=== PATIENT | male | born 1930 | race American Indian/Alaskan Native ===

== ENCOUNTER 2017-01-18 23:02 | Inpatient (IN) | payer MEDICARE ==
--- NOTE | 2017-01-18 23:30 | Emergency Department Report ---
HPI - General Time Seen by Provider: 01/18/17 23:18 - HPI HPI: This is a 86-year-old [place] male presents to the emergency department by EMS with concern for a possible stroke. The patient apparently was witnessed to have a change in status at about 2200 this evening that included a left-sided facial droop, left arm weakness, problems with speech and with his thought process. When EMS got there and during transport to [facility], the patient appears to have shown signs of improvement. Upon presentation he still has a slight left-sided facial droop but has decreased weakness, increased speech. Apparently his normal baseline status is AAO 3, verbal, ambulatory without any deficits. He has a past medical history of hypertension , coronary artery disease with triple bypass, glaucoma and diabetes. No previous CVA. He did not receive anything for his symptoms in route. I was able to get in touch with the patient's "caregiver", Kris Wagoner, who was there with the patient within he had a change in mental status and/or any neurological deficits. He says that the patient was normal when he came back from running errands at about 2200 this evening. Shortly after that he began having some slurred speech, not making any sense. He says that his eyes "did not look quite right" and that he was wondering if the patient had a seizure as he clenched his left hand and was having some shaking. He is unsure whether there was any known weakness to the extremities. He says that he has the caregiver but he has not necessarily the DURABLE POWER OF HANGAR ATTENDANT. The patient does have some family in both [place] and [place]. ED Past Medical Hx - Past Medical History Hx Hypertension: Yes Hx Heart Attack/AMI: Yes (2008) Hx Diabetes: Yes - Surgical History Additional Surgical History: bypass heart surgery - Social History Smoking Status: Never Smoker - Medications Home Medications: Home Medications Medication Instructions Recorded Confirmed Last Taken Type RX: Carvedilol [Coreg] 6.25 mg PO BID 11/03/16 11/03/16 1 Day Ago History RX: Clopidogrel [Plavix] 75 mg PO QDAY 11/03/16 11/03/16 1 Day Ago History RX: Simvastatin [Zocor TAB] 40 mg PO QHS 11/03/16 11/03/16 1 Day Ago History ED Review of Systems ROS: Stated complaint: ALTERED MENTAL STATUS Other details as noted in HPI Comment: Unobtainable due to pts medical conditions Physical Exam - Physical Exam Physical Exam: GENERAL: The patient is well-developed well-nourished. HENT: Normocephalic. Atraumatic. Patient has moist mucous membranes. EYES: Extraocular motions are intact. Pupils equal reactive to light bilaterally. There is some fatigable horizontal nystagmus. NECK: Supple. Trachea is midline. CHEST/LUNGS: Clear to auscultation. There is no respiratory distress noted. HEART/CARDIOVASCULAR: Regular. There is no tachycardia. There is no gallop rub or murmur. ABDOMEN: Abdomen is soft, nontender. Patient has normal bowel sounds. There is no abdominal distention. SKIN: Skin is warm and dry. NEURO: The patient is awake but confused. Follows some commands but often needs redirection or to be told multiple times. No obvious pronator drift. There is a left-sided facial nasolabial fold paresis. Patient has some expressive aphasia. MUSCULOSKELETAL: There is no tenderness or deformity. Radial pulse +2 over 4 bilaterally. There is no evidence of acute injury. ED Course - Reevaluation(s) Reevaluation #1: I was called back into the room as the patient's caregiver, Kris, noticed that he was shaking with some seizure-like activity and then became unresponsive. When I got into the room there was no seizure-like activity but the patient was unresponsive with snoring respirations. For protection of the airway, the patient was intubated. The hospitalist has been made aware of the intubation. I also spoke with the patient's daughter to let her know of the patient's respiratory failure and intubation and change of admission to the ICU. She understands and agrees to the plan. 01/19/17 01:50 - Consultations Consultation #1: I spoke to the telemedicine neurologist, Dr. Skaggs, who is currently seeing the patient in the room via tele-monitor. 01/19/17 00:18 01/19/17 01:08 Dr. Skaggs saw the patient and also spoke with the patient's friend/"caregiver " and the patient's daughter was on the phone as a teleconference and she is the medical decision maker being the next of kin. Although Dr. Skaggs spent quite a while discussing the need or possibility of TPA, the daughter definitively decided she did not want this medication given and she felt that the absolute reason for his condition was unknown and did not want him to just receive medications. She also hopes that he can eventually be transferred and seen by his PCP, Dr. Oliva, at [facility]. I also went into the room and reiterated the risks and rewards of TPA and they continue to say they do not want TPA administration. - Intubation Time Out Performed: Yes Sedative: Etomidate Mg Given: 20 Paralytic: Rocuronium Mg Given: 80 Laryngoscope: Rao Size: 4 ET Tube Size: 7.5 Tube Secured Depth (cm): 24 Tube Secured Location: lips Tube Placement Confirmation: visualized tube passing t, equal breath sounds bilat, confirmation by capnometr Patient Tolerated Procedure: well Intubation Complications: none ED Medical Decision Making - Lab Data Result diagrams: 01/18/17 23:10 01/18/17 23:10 - EKG Data -: EKG Interpreted by Me EKG shows normal: sinus rhythm, axis, intervals, QRS complexes, ST-T waves ( nonspecific ST-T waves) Rate: tachycardia (106 bpm) - EKG Data When compared to previous EKG there are: previous EKG unavailable Interpretation: nonspecific ST-T wave cherelle (with mild tachycardia) - Radiology Data Radiology results: report reviewed, image reviewed interpreted by me: Chest x-ray does not show any acute process. There are no pleural effusions, obvious pneumonia and there is no pneumothorax. Post intubation chest x-ray shows appropriate placement of the endotracheal tube above the polo. CT of the head without contrast does not show any acute intracranial hemorrhage. 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 The appearance is similar to the prior study. Areas of relative hypodensity seen in the white matter of the cerebral hemispheres. This is a nonspecific finding. It may be related to chronic ischemic change from small vessel disease. The patient can be further assessed with MRI with diffusion- weighted imaging if indicated. - Medical Decision Making 86-year-old male presents with some level of altered mental status but concern for CVA. At first there was report the patient had facial asymmetry and left upper extremity weakness. He presents with some expressive aphasia, left-sided facial asymmetry. Code stroke was called prior to his presentation. Stat CT of the head did not show any bleed, shift, mass or any acute ischemic changes. He had some hypertension but that came down without any medication at first. Eventually I spoke with the friend/caregiver who spoke of some seizure-like activity that led to this change in mental status and these deficits. The patient was seen by the telemedicine neurologist who did a full examination by manager monitoring including speaking with the patient's daughter/next of kin. The decision was made that the patient would not receive TPA as this is family wishes and they appear to understand the adverse effects or possible complications of TPA administration, as well as the concern or risk of not giving TPA. The decision was made at that time to cover him with aspirin, seizure medication and admitted to the hospital. Shortly after this point, the patient once again had some seizure-like activity witnessed by his friend/ him analyst, who is bedside. This activity was not witnessed by myself or the ER staff that the patient was found with worst altered mental status and some snoring respirations. For this reason he was intubated for airway protection. I spoke to the patient's daughter at this point and updated her on the need for intubation and the plan for admission to the ICU. She reiterated that she did not want TPA given but was on board with the rest of the workup and medications. Patient has been accepted for admission by the hospitalist Dr. Elizondo. - Differential Diagnosis CVA, TIA, Hypoglycemia, Seizures Critical Care Time: No Critical care time in (mins) excluding proc time.: 35 Critical care attestation.: If time is entered above; I have spent that time in minutes in the direct care of this critically ill patient, excluding procedure time. Critical care time was spent on this patient and doing his initial evaluation, multiple re- evaluations, discussion with the telemedicine neurologist, discussion with the patient's family and friends, ordering and interpretation of labs and imaging, disposition planning. This does not include the time spent doing the intubation procedure. Critical Care Time: 35 minutes ED Disposition Clinical Impression: Expressive aphasia, Seizure-like activity Hypertension Qualifiers: Hypertension type: essential hypertension Qualified Code(s): I10 - Essential ( primary) hypertension Altered mental status Qualifiers: Altered mental status type: transient alteration of awareness Qualified Code(s) : R40.4 - Transient alteration of awareness Respiratory failure Qualifiers: Chronicity: acute Respiratory failure complication: unspecified whether with hypoxia or hypercapnia Qualified Code(s): J96.00 - Acute respiratory failure, unspecified whether with hypoxia or hypercapnia Disposition: DC-09 OP ADMIT IP TO THIS HOSP Is pt being admited?: Yes Condition: Critical Time of Disposition: 04:25
[2017-01-18 23:32] LABS: Basophils % (Auto) 0.8 % (0.0-1.8); Eosinophils % (Auto) 1.3 % (0.0-4.3); Hematocrit 47.9 % (35.5-45.6); Hemoglobin 15.7 gm/dl (11.8-15.2); Mean Corpuscular HGB Conc 33 % (32-34); Mean Corpuscular Hemoglobin 31 pg (28-32); Mean Corpuscular Volume 96 fl (84-94); Platelet Count 143 K/mm3 (140-440); Red Blood Count 4.99 M/mm3 (3.65-5.03); Red Cell Distribution Width 13.4 % (13.2-15.2); White Blood Count 5.2 K/mm3 (4.5-11.0)
[2017-01-18 23:42] LABS: Creatine Kinase MB 1.1 ng/mL (0.0-4.0)
[2017-01-18 23:44] LABS: Alanine Aminotransferase 9 units/L (7-56); Albumin 3.9 g/dL (3.9-5); Alkaline Phosphatase 48 units/L (35-129); Anion Gap 21 mmol/L; BUN/Creatinine Ratio 12; Blood Urea Nitrogen 14 mg/dL (9-20); Calcium 8.7 mg/dL (8.4-10.2); Carbon Dioxide 21 mmol/L (22-30); Chloride 99.7 mmol/L (98-107); Creatine Kinase 93 units/L (55-170); Glucose 163 mg/dL (75-100); INR 0.97 (0.87-1.13); Sodium 138 mmol/L (137-145); Total Protein 7.7 g/dL (6.3-8.2)
[2017-01-18 23:45] LABS: Partial Thromboplastin Time 27.4 Sec. (24.2-36.6)
[2017-01-19] MEDS ORDERED: ACTIVASE ONE (00:10)
[2017-01-19] MEDS ORDERED: BABY ASPIRIN PO ONE (01:07)
[2017-01-19] MEDS ORDERED: ZEMURON IV ONE ×2 (01:32→14:04)
[2017-01-19] MEDS ORDERED: AMIDATE IV ONE ×2 (01:32→14:04)
[2017-01-19] MEDS ORDERED: VASELINE LIP THERAPY TP PRN (01:38)
[2017-01-19] MEDS ORDERED: ARTIFICIAL TEARS OPHTH OINT OU PRN (01:38)
[2017-01-19] MEDS ORDERED: NORMODYNE IV ONE ×2 (01:41→01:47)
[2017-01-19] MEDS ORDERED: KEPPRA 1,000 MG/NS 0.75% 100ML 1,000 MG/100 ML BAG IV ONE ×2 (01:42→01:46)
[2017-01-19] MEDS ORDERED: fentaNYL DRIP Premix 2,000 MCG/100 ML BAG IV ONE ×2 (01:45→23:57)
[2017-01-19] MEDS ORDERED: NACL 0.9% 500 ML IV SCH (02:00)
[2017-01-19] MEDS ORDERED: MIDAZOLAM 100 MG in NACL 0.9% 80 ML IV SCH (02:00)
[2017-01-19] MEDS ORDERED: fentaNYL DRIP Premix 2,000 MCG/100 ML BAG IV SCH (02:00)
[2017-01-19] MEDS ORDERED: APRESOLINE IV PRN (02:19)
[2017-01-19] MEDS ORDERED: TYLENOL PR PRN (02:27)
[2017-01-19] MEDS ORDERED: DULCOLAX PR PRN (02:27)
[2017-01-19] MEDS ORDERED: TYLENOL PO PRN (02:27)
[2017-01-19] MEDS ORDERED: SODIUM CHLORIDE FLUSH SYRINGE 10 ML IV PRN (02:27)
[2017-01-19] MEDS ORDERED: ZOFRAN IV PRN (02:27)
--- NOTE | 2017-01-19 02:35 | History and Physical Report ---
History of Present Illness Date of examination: 01/19/17 History of present illness: 86 year old man with hypertension, diabetes, CAD was brought to the emergency room for evaluation of decrease responsive and aphasic, left facial droop and left arm weakness. Caregiver also noted that she clenches his hand and had some shaking . In the emergency room, teleneurology was consulted, and will TPA was not given because patient might had a complex seizure. He was then witnessed a have tonic-clonic seizure in the emergency room, with sonorous respiration, patient was then intubated in the emergency room. Review of system is unobtainable PAST MEDICAL HISTORY: hypertension, diabetes, CAD PAST SURGICAL HISTORY: CABG SOCIAL HISTORY: Denies alcohol, tobacco, drugs FAMILY HISTORY: Hypertension Medications and Allergies Allergies Allergy/AdvReac Type Severity Reaction Status Date / Time No Known Allergies Allergy Verified 01/18/17 23:21 Home Medications Medication Instructions Recorded Confirmed Last Taken Type Carvedilol [Coreg] 6.25 mg PO BID 11/03/16 01/19/17 1 Day Ago History Clopidogrel [Plavix] 75 mg PO QDAY 11/03/16 01/19/17 1 Day Ago History Simvastatin [Zocor TAB] 40 mg PO QHS 11/03/16 01/19/17 1 Day Ago History Bimatoprost [Lumigan 0.01%] 1 drop OU QHS 01/19/17 01/19/17 Unknown History Brinzolamide/Brimonidine Tart 8 ml OS TID 01/19/17 01/19/17 Unknown History [Simbrinza 1%-0.2% Eye Drops] Glimepiride [Amaryl] 1 mg PO QAM 01/19/17 01/19/17 Unknown History Pilocarpine 1% (Nf) [Isopto 1 drops OU TID 01/19/17 01/19/17 Unknown History Carpine (Nf)] Active Meds: Active Medications Hydralazine HCl (Apresoline) 5 mg IV Q6HR PRN PRN Reason: Hypertension Hydrophilic Ointment (Vaseline Lip Therapy) 1 applic TP Q2HR PRN PRN Reason: Dry Lips Fentanyl Citrate (Fentanyl Drip Premix) 2,000 mcg in 100 mls @ 5.67 mls/hr IV TITR EARNEST; 1 MCG/KG/HR PRN Reason: Protocol Last Admin: 01/19/17 02:13 Dose: 1 mcg/kg/hr, 5.67 mls/hr Midazolam HCl 100 mg/ Sodium (Chloride) 100 mls @ 2 mls/hr IV TITR EARNEST; 2 MG/HR PRN Reason: Protocol Multi-Ingred Cream/Lotion/Oil/Oint (Artificial Tears Ophth Oint) 1 applic OU Q4HR PRN PRN Reason: Dry Eye(s) Sodium Chloride (Nacl 0.9% 500 Ml) 1 ml IV DIRECT EARNEST Exam - Physical Exam Narrative exam: Gen. appearance: Patient lying in bed, no apparent distress, intubated HEENT: Normocephalic, atraumatic, pupils equally round and reactive to light, unable to do extraocular movement and no sclericterus,. No JVD or thyromegaly or nodule,neck supple, no carotid bruit ,mucous membranes moist, unable to examine oral cavity Heart: S1, S2, regular rate and rhythm Lungs: Clear to auscultation bilaterally, breathing comfortable Abdomen: Positive bowel sounds, nontender, nondistended, no organomegaly Extremity: No edema, cyanosis, clubbing Skin: No rash, nodules, warm, dry Neuro: Sedated - Constitutional Vitals: Temp Pulse Resp BP Pulse Ox 110 H 22 213/139 100 01/19/17 01:58 01/19/17 00:02 01/19/17 01:58 01/19/17 01:58 Results - Labs CBC & Chem 7: 01/21/17 14:01 01/21/17 14:01 Labs: Abnormal lab results 01/18/17 01/18/17 01/19/17 Range/Units 23:10 23:10 00:16 Hgb 15.7 H (11.8-15.2) gm/dl Hct 47.9 H (35.5-45.6) % MCV 96 H (84-94) fl Gordon % (Auto) 9.1 H (0.0-7.3) % Carbon Dioxide 21 L (22-30) mmol/L Glucose 163 H (75-100) mg/dL POC Glucose 176 H (70-105) - Imaging and Cardiology Chest x-ray: image reviewed CT Scan - head: report reviewed Assessment and Plan Assessment CVA VS Complex seizure Hypertension, malignant Diabetes CAD Plan Admit to medicine Continue IV sedation, consult critical care Obtain MRI, carotid Doppler, echo consult neurology Do neurochecks, swallow screen Start aspirin, statin, IV hydralazine for blood pressure control Consult physical, occupational therapy Start dvt prophalaxis
[2017-01-19 04:43] LABS: ISTAT Base Excess -4; ISTAT HCO3 22.5; ISTAT PCO2 46.4 (35-45); ISTAT PH 7.295 (7.35-7.45); ISTAT PO2 231 (80-105); ISTAT SO2 100; ISTAT TCO2 24
[2017-01-19 04:48] LABS: Urine Drugs of Abuse Note Disclamer
[2017-01-19] MEDS ORDERED: D50W (25GM) Syringe IV PRN (05:04)
[2017-01-19 05:07] LABS: Bilirubin,Urine NEG (Negative); Blood,Urine SM (Negative); Ketones,Urine NEG (Negative); Leukocyte Esterase,Urine NEG (Negative); Mucus,Urine FEW /HPF; Nitrite,Urine NEG (Negative); Urobilinogen,Urine < 2.0 mg/dL (<2.0)
[2017-01-19 05:10] LABS: Protein,Urine >500 mg/dL (Negative)
--- NOTE | 2017-01-19 07:24 | XRay Report ---
Portable chest: Tube placement. Nasogastric and endotracheal tubes are well-positioned. The mediastinal contour is unremarkable with CABG changes. Lungs are clear. The cardiopulmonary findings are unchanged from January 18. Impression: Well-positioned life support tubes.
--- NOTE | 2017-01-19 07:25 | XRay Report ---
Portable chest: Suspected CVA. CABG changes are present with a normal-sized heart. The lungs are clear. No vascular congestion. The osseous structures are grossly normal. Impression: No acute findings suspected.
[2017-01-19] MEDS: NOVOLOG SUB-Q SCH ×4 (07:51→23:47)
--- NOTE | 2017-01-19 07:58 | Cat Scan Report ---
FINAL REPORT EXAM: CT HEAD/BRAIN WO CON HISTORY: suspected stroke TECHNIQUE: Noncontrast serial axial images from skull base to vertex PRIORS: CT scan of the head from 11/02/2016 FINDINGS: There is moderate atrophy. There is no mass effect or midline shift. There are no abnormal intra or extra-axial fluid collections. Lateral ventricles are within normal limits for size and configuration. Basilar cisterns are patent. No acute intracranial hemorrhage is identified. Areas of relative hypodensity are seen in the white matter of the cerebral hemispheres. There is focal malacia in the left precentral gyrus that appears similar to the prior study. Atherosclerotic changes are noted. Visualized paranasal sinuses and mastoid air cells are well aerated. No acute osseous abnormality is identified. IMPRESSION: 1. No acute intracranial hemorrhage is identified. 2. 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 The appearance is similar to the prior study. 3. Areas of relative hypodensity are seen in the white matter of the cerebral hemispheres. This is a nonspecific finding. It may be related to chronic ischemic change from small vessel disease. 4. The patient can be further assessed with MRI with diffusion-weighted imaging if indicated.
[2017-01-19] MEDS ORDERED: LOVENOX SUB-Q SCH (10:00)
--- NOTE | 2017-01-19 10:27 | Event Note ---
Date: 01/19/17 Patient seen and examined. 86 year old man with h/o hypertension, diabetes, CAD was brought to the emergency room for evaluation of possible CVA . Teleneurology was consulted, and TPA was not given because He was then witnessed to a have tonic-clonic seizure in the emergency room. Patient was then intubated in the emergency room and admitted to ICU. Will cont current management and plan as dictated in the H and P. Will cont keppra IV, start on IV fluid for hypotension. Will also order lactic acid, order blood cx and cover for empiric abx for possible SIRS. Will also order 2d echo to assess EF.
[2017-01-19] MEDS: ASPIRIN PO SCH (10:51)
[2017-01-19] MEDS: LOVENOX SUB-Q SCH (11:14)
[2017-01-19] MEDS: KEPPRA 500 MG in D5W 100 ML IV SCH ×2 (11:23→23:46)
[2017-01-19] MEDS ORDERED: PANCREAZE DR 10,500 UNIT FEEDTUBE PRN (11:34)
[2017-01-19] MEDS ORDERED: SIMPLE SYRUP FEEDTUBE PRN ×2 (11:34)
[2017-01-19] MEDS ORDERED: SODIUM BICARBONATE FEEDTUBE PRN (11:34)
[2017-01-19] MEDS ORDERED: NACL 0.9% 1000 ML 1,000 ML IV SCH (15:00)
[2017-01-19] MEDS: LEVAQUIN 750MG/150ML 750 MG/150 ML BAG IV SCH (21:47)
[2017-01-19] MEDS: ZOCOR PO SCH (23:46)
[2017-01-20 04:19] LABS: Basophils % (Auto) 0.3 % (0.0-1.8); Hematocrit 48.6 % (35.5-45.6); Hemoglobin 16.1 gm/dl (11.8-15.2); Mean Corpuscular HGB Conc 33 % (32-34); Mean Corpuscular Hemoglobin 32 pg (28-32); Mean Corpuscular Volume 95 fl (84-94); Platelet Count 110 K/mm3 (140-440); Red Blood Count 5.11 M/mm3 (3.65-5.03); Red Cell Distribution Width 13.7 % (13.2-15.2); White Blood Count 8.8 K/mm3 (4.5-11.0)
[2017-01-20 04:23] LABS: Calcium 8.1 mg/dL (8.4-10.2); Chloride 104.2 mmol/L (98-107)
[2017-01-20 04:24] LABS: Potassium 4.9 mmol/L (3.6-5.0)
[2017-01-20] MEDS ORDERED: fentaNYL DRIP Premix 2,000 MCG/100 ML BAG IV ONE (06:08)
[2017-01-20] MEDS: NACL 0.9% 1000 ML 1,000 ML IV SCH (06:25)
[2017-01-20] MEDS ORDERED: NACL 0.9% 1000 ML 1,000 ML IV SCH (07:00)
[2017-01-20] MEDS: NOVOLOG SUB-Q SCH ×4 (08:07→22:30)
[2017-01-20 09:27] LABS: ISTAT Base Excess -6; ISTAT HCO3 18.8; ISTAT PCO2 30.4 (35-45); ISTAT PH 7.399 (7.35-7.45); ISTAT PO2 81 (80-105); ISTAT SO2 96; ISTAT TCO2 20
--- NOTE | 2017-01-20 09:48 | XRay Report ---
AP CHEST: HISTORY: Followup respiratory failure The endotracheal tube and nasogastric tube are unchanged in position. Heart size remains within normal limits. The lungs are clear. No acute process is appreciated. IMPRESSION: Unremarkable AP chest. No change since yesterday's exam.
[2017-01-20] MEDS: LOVENOX SUB-Q SCH (09:54)
[2017-01-20] MEDS: ASPIRIN PO SCH (09:54)
[2017-01-20] MEDS: KEPPRA 500 MG in D5W 100 ML IV SCH ×2 (10:29→22:24)
--- NOTE | 2017-01-20 12:04 | Consultation ---
History of Present Illness Consult date: 01/20/17 Requesting physician: CHRIS HIRSCH Reason for consult: other (Acute respiratory failure on MVS, Critical care management) History of present illness: 86 year old man with hypertension, diabetes, CAD was brought to the emergency room for evaluation of decrease responsive and aphasic, left facial droop and left arm weakness. Caregiver also noted that she clenches his hand and had some shaking . In the emergency room, teleneurology was consulted, and will TPA was not given because patient might had a complex seizure. He was then witnessed a have tonic-clonic seizure in the emergency room, with sonorous respiration, patient was then intubated in the emergency room. Further history was obtained: Past medical history significant for severe aortic stenosis, s/p aortic valve replacement (bioprosthesic valve) and CAD s/p CABG x 2 (HIRSCH to LAD, saphenous graft to anterolateral obtuse margin) in 10/2012 at [place], AMI, hypertension, diabetes, mild COPD, HLP, morbid obesity. Echo done 11/2012 showed EF 45-50%, mildly dilated LA, impaired relaxation, AV bioprosthesis without stenosis or regurgitation, mild MR. 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 Patient was seen and examined. Vitals, labs, medical records, imaging, chart were reviewed.Discussed with ED- physician, RN and RT. Thank you Dr. Perez for the consult. Medications and Allergies Allergies Allergy/AdvReac Type Severity Reaction Status Date / Time No Known Allergies Allergy Verified 01/18/17 23:21 Home Medications Medication Instructions Recorded Confirmed Last Taken Type Carvedilol [Coreg] 6.25 mg PO BID 11/03/16 01/19/17 1 Day Ago History Clopidogrel [Plavix] 75 mg PO QDAY 11/03/16 01/19/17 1 Day Ago History Simvastatin [Zocor TAB] 40 mg PO QHS 11/03/16 01/19/17 1 Day Ago History Bimatoprost [Lumigan 0.01%] 1 drop OU QHS 01/19/17 01/19/17 Unknown History Brinzolamide/Brimonidine Tart 8 ml OS TID 01/19/17 01/19/17 Unknown History [Simbrinza 1%-0.2% Eye Drops] Glimepiride [Amaryl] 1 mg PO QAM 01/19/17 01/19/17 Unknown History Pilocarpine 1% (Nf) [Isopto 1 drops OU TID 01/19/17 01/19/17 Unknown History Carpine (Nf)] Active Meds: Active Medications Acetaminophen (Tylenol) 650 mg PO Q4H PRN PRN Reason: Pain, Mild (1-3) Acetaminophen (Tylenol) 650 mg [place] Q4H PRN PRN Reason: Pain, Mild (1-3) Lipase/Protease/Amylase (Pancreferoz Dr 10,500 Unit) 1 each FEEDTUBE PRN PRN PRN Reason: For Clogged Feeding Tube Aspirin (Aspirin) 325 mg PO QDAY EARNEST Last Admin: 01/20/17 09:54 Dose: 325 mg Bisacodyl (Dulcolax) 10 mg [place] QDAY PRN PRN Reason: Constipation Dextrose (D50w (25gm) Syringe) 50 ml IV PRN PRN PRN Reason: Hypoglycemia Enoxaparin Sodium (Lovenox) 40 mg SUB-Q QDAY@1000 EARNEST Last Admin: 01/20/17 09:54 Dose: 40 mg Hydralazine HCl (Apresoline) 5 mg IV Q6HR PRN PRN Reason: Hypertension Last Admin: 01/19/17 03:02 Dose: 5 mg Hydrophilic Ointment (Vaseline Lip Therapy) 1 applic TP Q2HR PRN PRN Reason: Dry Lips Midazolam HCl 100 mg/ Sodium (Chloride) 100 mls @ 2 mls/hr IV TITR EARNEST; 2 MG/HR PRN Reason: Protocol Last Titration: 01/19/17 04:36 Dose: 3 mg/hr, 3 mls/hr Levetiracetam 500 mg/ Dextrose 105 mls @ 400 mls/hr IV Q12HR EARNEST Last Admin: 01/20/17 10:29 Dose: 400 mls/hr Sodium Chloride (Nacl 0.9% 1000 Ml) 1,000 mls @ 100 mls/hr IV DIRECT EARNEST Last Infusion: 01/20/17 05:40 Dose: Infused Fentanyl 2,000 mcg/ Sodium (Chloride) 100 mls @ 6.4 mls/hr IV TITR EARNEST; 1 MCG/ KG/HR PRN Reason: Protocol Levofloxacin/Dextrose (Levaquin 750mg/150ml) 750 mg in 150 mls @ 100 mls/hr IV Q24H EARNEST PRN Reason: Protocol Last Admin: 01/19/17 21:47 Dose: 100 mls/hr Sodium Chloride (Nacl 0.9% 1000 Ml) 1,000 mls @ 100 mls/hr IV DIRECT EARNEST Last Admin: 01/20/17 06:25 Dose: 100 mls/hr Insulin Aspart (Novolog) 0 units SUB-Q ACHS EARNEST PRN Reason: Protocol Last Admin: 01/20/17 08:07 Dose: Not Given Lorazepam (Ativan) 1 mg IV Q4H PRN PRN Reason: Seizures Multi-Ingred Cream/Lotion/Oil/Oint (Artificial Tears Ophth Oint) 1 applic OU Q4HR PRN PRN Reason: Dry Eye(s) Ondansetron HCl (Zofran) 4 mg IV Q8H PRN PRN Reason: N/V unrelieved by Reglan Simple Syrup (Simple Syrup) 15 ml FEEDTUBE PRN PRN PRN Reason: Hypoglycemia Simple Syrup (Simple Syrup) 30 ml FEEDTUBE PRN PRN PRN Reason: Hypoglycemia Simvastatin (Zocor) 20 mg PO QHS EARNEST Last Admin: 01/19/17 23:46 Dose: 20 mg Sodium Bicarbonate (Sodium Bicarbonate) 325 mg FEEDTUBE PRN PRN PRN Reason: For Clogged Feeding Tube Sodium Chloride (Nacl 0.9% 500 Ml) 1 ml IV DIRECT EARNEST Sodium Chloride (Sodium Chloride Flush Syringe 10 Ml) 10 ml IV PRN PRN PRN Reason: LINE FLUSH Review of Systems ROS unobtainable: due to endotracheal tube Physical Examination Vital signs: Vital Signs BP Pulse Ox 182/99 98 01/18/17 23:53 01/18/17 23:53 General appearance: no acute distress, other (Obese, intubated, sedated. No patient-ventilator dysynchrony.) Eyes: non-icteric ENT: oropharynx moist Neck: supple, no lymphadenopathy, no JVD Effort: normal Ascultation: Bilateral: clear (anteriorly), diminished breath sounds Percussion: Bilateral: not dull Cardiovascular: regular rate and rhythm (S1,S2, systolic murmur) Gastrointestinal: normoactive bowel sounds, non-tender, non-distended (obese) Integumentary: normal Extremities: no cyanosis, no edema, no ischemia or petechiae Musculoskeletal: no deformities other (intubated, sedated on lorazepam infusion, fentanyl) Results - Laboratory Findings CBC and BMP: 01/21/17 14:01 01/21/17 14:01 ABG POC ABG pH 7.399 (7.35-7.45) 01/20/17 05:18 POC ABG pCO2 30.4 (35-45) L 01/20/17 05:18 POC ABG pO2 81 (80-105) 01/20/17 05:18 POC ABG HCO3 18.8 01/20/17 05:18 POC ABG Total CO2 20 01/20/17 05:18 POC ABG O2 Sat 96 01/20/17 05:18 PT/INR, D-dimer PT 13.4 Sec. (12.2-14.9) 01/18/17 23:10 INR 0.97 (0.87-1.13) 01/18/17 23:10 Abnormal lab findings: Abnormal Labs 01/19/17 01/19/17 01/19/17 03:45 05:46 07:49 RBC Hgb Hct MCV Plt Count [place] % (Auto) Morton # POC ABG pH 7.295 L POC ABG pCO2 46.4 H POC ABG pO2 231 H Sodium Carbon Dioxide Creatinine POC Glucose 113 H Calcium Troponin T 0.046 H D HDL Cholesterol 64 H 01/19/17 01/20/17 01/20/17 23:39 03:47 03:47 RBC 5.11 H Hgb 16.1 H Hct 48.6 H MCV 95 H Plt Count 110 L [place] % (Auto) 14.6 H [place] # 1.3 H POC ABG pH POC ABG pCO2 POC ABG pO2 Sodium 136 L Carbon Dioxide 20 L Creatinine 2.0 H D POC Glucose 122 H Calcium 8.1 L Troponin T HDL Cholesterol 01/20/17 05:18 RBC Hgb Hct MCV Plt Count [place] % (Auto) [place] # POC ABG pH POC ABG pCO2 30.4 L POC ABG pO2 Sodium Carbon Dioxide Creatinine POC Glucose Calcium Troponin T HDL Cholesterol - Diagnostic Findings Chest x-ray: image reviewed Additional studies: Report of CT head reviewed Assessment and Plan Acute respiratory failure-hypoxic - Lung protective strategies -VAP bundle addressed -HOB>40%, -VTE prophylaxis -Stress ulcer prophylaxis -Small bowel feeding tube, initiate nutrition -Daily SAT -Daily SBT to assess readiness for liberation from mechanical ventilatory support -Escamilla catheter in this critically ill patient with acute kidney injury -Agitation/analgesia CVA VS Complex seizure - head CT with no acute intracranial bleed/mass or shift; carotid studies show < 50% stenosis bilaterally - get MRI brain pending - secondary stroke prophylaxis -Anti-epileptic drugs, defer Neurology Hypertension, malignant on admission - now hypotensive - Monitor hemodynamics closely. SIRS - emipric antibiotics while awaiting cultures. -Once cultures are resulted, de-escalate - ARTURO/ATN - monitor renal function, repeat BMP - monitor urine output. -get urine studies, urine soduim, creatinine -get urine eosinophils, rule out active sediment -Avoid nephrotoxic agens and dose all medications for Cr. Clearance Diabetes type 2 - accuchecks, glycmic control with goal blood glucose<180mg/dl Elevated troponin -suspect type 2 NSTEMI -Trend troponins - cardiology following, Ef 55% on Echo CAD s/p CABG - HIRSCH to LAD, saphenous graft to anterolateral obtuse margin (10/2012) - cont aspirin, statin s/p AVR with bioprosthesis (10/2012) - no acute issue now, follow cardiology recommendation Morbid obesity - nutrition counselling when medically stable - Patient Problems (1) Acute respiratory failure with hypoxia Current Visit: Yes Status: Acute (2) Seizure-like activity Current Visit: Yes Status: Acute (3) Acute renal failure (ARF) Current Visit: Yes Status: Acute Qualifiers: Acute renal failure type: A (4) Acute metabolic encephalopathy Current Visit: No Status: Acute Critical care time in (mins) excluding proc time.: 65 Critical care attestation.: If time is entered above; I have spent that time in minutes in the direct care of this critically ill patient, excluding procedure time.
--- NOTE | 2017-01-20 12:40 | Progress Note ---
Assessment and Plan /Acute respiratory failure - intubated in the ER - pulmonary following - cont nebulizer breathing treatment, weaning protocol /CVA VS Complex seizure - head CT with NAF; carotid studies show <50% stenosis bilaterally - cont keppra iv, as needed ativan - MRI brain pending - neurology consulted - cont aspirin, statin with NG tube /Hypertension, malignant on admission - now BP hypotensive - off BP meds, monitor carefully - metoprolol iv as needed if SBP >160 /SIRS - pt has tachycardia, tachypnea, elevated lactic acid - could be reactive - will cover with Abx empirically until sepsis r/o ARTURO/ATN - monitor renal function, repeat BMP - iv fluid, free h20 with TF - if cont to decline will consult renal /Diabetes type 2 - SSI, monitor BG q6h /Elevated troponin - negative x 2 with minimal elevation of 3rd set; ECG with NAF; suspect secondary to seizure activity - cardiology following, Ef 55% on Echo /CAD s/p CABG - HIRSCH to LAD, saphenous graft to anterolateral obtuse margin (10/2012) - cont aspirin, statin /s/p AVR with bioprosthesis (10/2012) - no acute issue now, follow cardiology recommendation /Morbid obesity - nutrition counselling when medically stable /Dvt Px - lovenox Brief History: The pt is an 86 YO male with a past medical history significant for severe aortic stenosis, s/p aortic valve replacement (bioprosthesic valve) and CAD s/p CABG x 2 (HIRSCH to LAD, saphenous graft to anterolateral obtuse margin) in 10/2012 at [place], AMI, hypertension, diabetes, mild COPD, HLP, morbid obesity brought to the ER by caregiver with possible stroke like symptom. Following arrival to ED, TPA was not given because there was concern for complex seizure. Pt was then witnessed to a have tonic-clonic seizure in the emergency room, with sonorous respiration, patient was then intubated in the emergency room. Current Meds: Generic Name Dose Route Start Last Admin Trade Name Freq PRN Reason Stop Dose Admin Acetaminophen 650 mg 01/19/17 02:27 Tylenol PO Q4H PRN Pain, Mild (1-3) Acetaminophen 650 mg 01/19/17 02:27 01/21/17 02:23 Tylenol [place] 650 mg Q4H PRN Administration Pain, Mild (1-3) Lipase/Protease/Amylase 1 each 01/19/17 11:34 Pancreaze 10,500 Unit FEEDTUBE PRN PRN For Clogged Feeding Tube Aspirin 325 mg 01/19/17 10:00 01/21/17 10:38 Aspirin PO 325 mg QDAY EARNEST Administration Bisacodyl 10 mg 01/19/17 02:27 Dulcolax [place] QDAY PRN Constipation Dextrose 50 ml 01/19/17 05:04 D50w (25gm) Syringe IV PRN PRN Hypoglycemia Enoxaparin Sodium 40 mg 01/19/17 10:00 01/20/17 09:54 Lovenox SUB-Q 40 mg QDAY@1000 EARNEST Administration Hydralazine HCl 5 mg 01/19/17 02:19 01/19/17 03:02 Apresoline IV 5 mg Q6HR PRN Administration Hypertension Hydrophilic Ointment 1 applic 01/19/17 01:38 Vaseline Lip Therapy TP Q2HR PRN Dry Lips Midazolam HCl 100 mg/ Sodium 100 mls @ 2 mls/hr 01/19/17 02:00 01/19/17 04:36 Chloride IV 3 mg/hr TITR EARNEST 3 mls/hr Protocol Titration 2 MG/HR Levetiracetam 500 mg/ Dextrose 105 mls @ 400 mls/hr 01/19/17 11:00 01/21/17 10:37 IV 400 mls/hr Q12HR EARNEST Administration Fentanyl 2,000 mcg/ Sodium 100 mls @ 6.4 mls/hr 01/19/17 17:00 01/21/17 06:49 Chloride IV 1 mcg/kg/hr TITR EARNEST 6.4 mls/hr Protocol Administration 1 MCG/KG/HR Levofloxacin/Dextrose 750 mg in 150 mls @ 100 mls/hr 01/19/17 20:00 01/20/17 20:51 Levaquin 750mg/150ml IV 100 mls/hr Q24H EARNETS Administration Protocol Sodium Chloride 1,000 mls @ 100 mls/hr 01/20/17 06:25 01/20/17 06:25 Nacl 0.9% 1000 Ml IV 100 mls/hr DIRECT EARNEST Administration Insulin Aspart 0 units 01/19/17 07:30 01/21/17 08:19 Novolog SUB-Q Not Given ACHS EARNEST Protocol Lorazepam 1 mg 01/19/17 02:27 Ativan IV Q4H PRN Seizures Metoprolol Tartrate 5 mg 01/20/17 16:00 01/21/17 10:37 Lopressor IV 5 mg Q8H EARNEST Administration Multi-Ingred Cream/Lotion/Oil/Oint 1 applic 01/19/17 01:38 Artificial Tears Ophth Oint OU Q4HR PRN Dry Eye(s) Ondansetron HCl 4 mg 01/19/17 02:27 Zofran IV Q8H PRN N/V unrelieved by Reglan Simple Syrup 15 ml 01/19/17 11:34 Simple Syrup FEEDTUBE PRN PRN Hypoglycemia Simple Syrup 30 ml 01/19/17 11:34 Simple Syrup FEEDTUBE PRN PRN Hypoglycemia Simvastatin 20 mg 01/19/17 22:00 01/20/17 22:24 Zocor PO 20 mg QHS EARNEST Administration Sodium Bicarbonate 325 mg 01/19/17 11:34 Sodium Bicarbonate FEEDTUBE PRN PRN For Clogged Feeding Tube Sodium Chloride 1 ml 01/19/17 02:00 Nacl 0.9% 500 Ml IV DIRECT EARNEST Sodium Chloride 10 ml 01/19/17 02:27 Sodium Chloride Flush Syringe 10 Ml IV PRN PRN LINE FLUSH Subjective Date of service: 01/20/17 Objective - Constitutional Vitals: Vital Signs - 12hr 01/20/17 01/20/17 01/20/17 00:45 01:00 01:15 Pulse Rate 96 H 99 H 94 H Respiratory 26 H 26 H 26 H Rate Blood Pressure 146/88 126/90 132/82 O2 Sat by Pulse 97 97 97 Oximetry 01/20/17 01/20/17 01/20/17 01:30 01:45 02:00 Pulse Rate 88 85 85 Respiratory 26 H 0 L 0 L Rate Blood Pressure 99/64 92/57 130/77 O2 Sat by Pulse 98 98 96 Oximetry 01/20/17 01/20/17 01/20/17 02:15 02:30 02:45 Pulse Rate 79 78 78 Respiratory 0 L 0 L 0 L Rate Blood Pressure 104/60 88/52 83/49 O2 Sat by Pulse 99 98 98 Oximetry 01/20/17 01/20/17 01/20/17 03:00 03:15 03:31 Pulse Rate 77 91 H 94 H Respiratory 8 L 7 L 13 Rate Blood Pressure 119/71 159/90 159/90 O2 Sat by Pulse 98 99 99 Oximetry 01/20/17 01/20/17 01/20/17 03:45 04:00 04:15 Pulse Rate 102 H 109 H 108 H Respiratory 11 L 10 L 14 Rate Blood Pressure 159/90 214/119 176/91 O2 Sat by Pulse 95 95 96 Oximetry 01/20/17 01/20/17 01/20/17 04:30 04:45 05:00 Pulse Rate 98 H 90 95 H Respiratory 5 L 0 L 8 L Rate Blood Pressure 130/79 104/60 171/91 O2 Sat by Pulse 97 97 96 Oximetry 01/20/17 01/20/17 01/20/17 05:15 05:18 05:30 Pulse Rate 94 H 95 H 87 Respiratory 16 9 L Rate Blood Pressure 137/77 171/91 129/71 O2 Sat by Pulse 97 97 98 Oximetry 01/20/17 01/20/17 01/20/17 06:00 06:30 07:00 Pulse Rate 81 86 82 Respiratory 0 L 4 L 0 L Rate Blood Pressure 125/68 147/83 127/74 O2 Sat by Pulse 100 98 97 Oximetry 01/20/17 01/20/17 01/20/17 07:30 08:01 08:30 Pulse Rate 98 H 105 H 93 H Respiratory 8 L 8 L 0 L Rate Blood Pressure 208/102 180/85 143/78 O2 Sat by Pulse 98 93 97 Oximetry 01/20/17 01/20/17 01/20/17 09:00 09:30 10:01 Pulse Rate 87 83 92 H Respiratory 0 L 0 L 7 L Rate Blood Pressure 123/66 116/61 151/96 O2 Sat by Pulse 96 96 Oximetry 01/20/17 01/20/17 01/20/17 10:30 11:00 11:30 Pulse Rate 106 H 107 H 88 Respiratory 7 L 7 L 0 L Rate Blood Pressure 155/98 167/100 122/66 O2 Sat by Pulse 94 88 95 Oximetry General appearance: Present: no acute distress, obese, other (intubated and sedated) - EENT Eyes: no scleral icterus ENT: clear oral mucosa Ears: bilateral: normal - Neck Neck: no enlarged thyroid, no masses or JVD - Respiratory Respiratory effort: other (on vent) Respiratory: bilateral: CTA - Breasts Breasts: normal - Cardiovascular Rhythm: regular Heart Sounds: Present: S1 & S2. Absent: gallop, rub Extremities: pulses intact, No edema, normal color, Full ROM - Gastrointestinal General gastrointestinal: Present: soft, non-tender, non-distended, normal bowel sounds - Integumentary Integumentary: clear, warm, dry - Musculoskeletal Musculoskeletal: other (sedated) - Neurologic Neurologic: other (unable to assess) - Psychiatric Psychiatric: no appropriate mood/affect, no intact judgment & insight, no memory intact - Labs CBC & Chem 7: 01/20/17 03:47 01/20/17 03:47 Labs: Abnormal lab results 01/19/17 01/20/17 01/20/17 Range/Units 23:39 03:47 03:47 RBC 5.11 H (3.65-5.03) M/mm3 Hgb 16.1 H (11.8-15.2) gm/dl Hct 48.6 H (35.5-45.6) % MCV 95 H (84-94) fl Plt Count 110 L (140-440) K/mm3 [place] % (Auto) 14.6 H (0.0-7.3) % [place] # 1.3 H (0.0-0.8) K/mm3 POC ABG pCO2 (35-45) Sodium 136 L (137-145) mmol/L Carbon Dioxide 20 L (22-30) mmol/L Creatinine 2.0 H D (0.8-1.5) mg/dL POC Glucose 122 H (70-105) Calcium 8.1 L (8.4-10.2) mg/dL 01/20/17 Range/Units 05:18 RBC (3.65-5.03) M/mm3 Hgb (11.8-15.2) gm/dl Hct (35.5-45.6) % MCV (84-94) fl Plt Count (140-440) K/mm3 [place] % (Auto) (0.0-7.3) % [place] # (0.0-0.8) K/mm3 POC ABG pCO2 30.4 L (35-45) Sodium (137-145) mmol/L Carbon Dioxide (22-30) mmol/L Creatinine (0.8-1.5) mg/dL POC Glucose (70-105) Calcium (8.4-10.2) mg/dL - Imaging and cardiology CT scan - chest: report reviewed (no infiltrates) CT Scan - head: report reviewed (no acute cva)
--- NOTE | 2017-01-20 14:37 | Consultation ---
History of Present Illness Consult date: 01/20/17 Requesting physician: ULI RUVALCABA Consult reason: elevated troponin History of present illness: 8The pt is an 86 YO male with a past medical history significant for severe aortic stenosis, s/p aortic valve replacement (bioprosthesic valve) and CAD s/p CABG x 2 (HIRSCH to LAD, saphenous graft to anterolateral obtuse margin) in 2012 at [place], AMI, hypertension, diabetes, mild COPD, HLP, morbid obesity. He is previously unknown to our practice. He is intubated, sedated and nonresponsive on evaluation and thus HPI is obtained per the records and per pt' s "caregiver", Kris Wagoner, at bedside. Per caregiver, pt is regularly followed by Dr. Haywood via [facility] [place], [place]. Per caregiver, who was there with the patient within he had a change in mental status and/or any neurological deficits, the patient was normal when he came back from running errands at about 2200 yesterday evening. The pt had just finished eating a lunchable. Shortly after that he began having some slurred speech, not making any sense. He says that his eyes "did not look quite right" and that he was wondering if the patient had a seizure as he clenched his left hand and was having some shaking. Following arrival to ED, TPA was not given because there was concern for complex seizure. Pt was then witnessed to a have tonic-clonic seizure in the emergency room, with sonorous respiration, patient was then intubated in the emergency room. Echo done 11/2012 showed EF 45-50%, mildly dilated LA, impaired relaxation, AV bioprosthesis without stenosis or regurgitation, mild MR. Past History Past Medical History: CAD, COPD, diabetes, hypertension, hyperlipidemia, other ( ) Past Surgical History: valve replacement (aortic), CABG Medications and Allergies Allergies Allergy/AdvReac Type Severity Reaction Status Date / Time No Known Allergies Allergy Verified 01/18/17 23:21 Home Medications Medication Instructions Recorded Confirmed Last Taken Type Carvedilol [Coreg] 6.25 mg PO BID 11/03/16 01/19/17 1 Day Ago History Clopidogrel [Plavix] 75 mg PO QDAY 11/03/16 01/19/17 1 Day Ago History Simvastatin [Zocor TAB] 40 mg PO QHS 11/03/16 01/19/17 1 Day Ago History Bimatoprost [Lumigan 0.01%] 1 drop OU QHS 01/19/17 01/19/17 Unknown History Brinzolamide/Brimonidine Tart 8 ml OS TID 01/19/17 01/19/17 Unknown History [Simbrinza 1%-0.2% Eye Drops] Glimepiride [Amaryl] 1 mg PO QAM 01/19/17 01/19/17 Unknown History Pilocarpine 1% (Nf) [Isopto 1 drops OU TID 01/19/17 01/19/17 Unknown History Carpine (Nf)] Active Meds: Active Medications Acetaminophen (Tylenol) 650 mg PO Q4H PRN PRN Reason: Pain, Mild (1-3) Acetaminophen (Tylenol) 650 mg AL Q4H PRN PRN Reason: Pain, Mild (1-3) Lipase/Protease/Amylase (Pancreaze Dr 10,500 Unit) 1 each FEEDTUBE PRN PRN PRN Reason: For Clogged Feeding Tube Aspirin (Aspirin) 325 mg PO QDAY EARNEST Last Admin: 01/20/17 09:54 Dose: 325 mg Bisacodyl (Dulcolax) 10 mg AL QDAY PRN PRN Reason: Constipation Dextrose (D50w (25gm) Syringe) 50 ml IV PRN PRN PRN Reason: Hypoglycemia Enoxaparin Sodium (Lovenox) 40 mg SUB-Q QDAY@1000 EARNEST Last Admin: 01/20/17 09:54 Dose: 40 mg Hydralazine HCl (Apresoline) 5 mg IV Q6HR PRN PRN Reason: Hypertension Last Admin: 01/19/17 03:02 Dose: 5 mg Hydrophilic Ointment (Vaseline Lip Therapy) 1 applic TP Q2HR PRN PRN Reason: Dry Lips Midazolam HCl 100 mg/ Sodium (Chloride) 100 mls @ 2 mls/hr IV TITR EARNEST; 2 MG/HR PRN Reason: Protocol Last Titration: 01/19/17 04:36 Dose: 3 mg/hr, 3 mls/hr Levetiracetam 500 mg/ Dextrose 105 mls @ 400 mls/hr IV Q12HR EARNEST Last Admin: 01/20/17 10:29 Dose: 400 mls/hr Sodium Chloride (Nacl 0.9% 1000 Ml) 1,000 mls @ 100 mls/hr IV DIRECT EARNEST Last Infusion: 01/20/17 05:40 Dose: Infused Fentanyl 2,000 mcg/ Sodium (Chloride) 100 mls @ 6.4 mls/hr IV TITR EARNEST; 1 MCG/ KG/HR PRN Reason: Protocol Levofloxacin/Dextrose (Levaquin 750mg/150ml) 750 mg in 150 mls @ 100 mls/hr IV Q24H EARNEST PRN Reason: Protocol Last Admin: 01/19/17 21:47 Dose: 100 mls/hr Sodium Chloride (Nacl 0.9% 1000 Ml) 1,000 mls @ 100 mls/hr IV DIRECT EARNEST Last Admin: 01/20/17 06:25 Dose: 100 mls/hr Insulin Aspart (Novolog) 0 units SUB-Q ACHS EARNEST PRN Reason: Protocol Last Admin: 01/20/17 12:54 Dose: Not Given Lorazepam (Ativan) 1 mg IV Q4H PRN PRN Reason: Seizures Multi-Ingred Cream/Lotion/Oil/Oint (Artificial Tears Ophth Oint) 1 applic OU Q4HR PRN PRN Reason: Dry Eye(s) Ondansetron HCl (Zofran) 4 mg IV Q8H PRN PRN Reason: N/V unrelieved by Reglan Simple Syrup (Simple Syrup) 15 ml FEEDTUBE PRN PRN PRN Reason: Hypoglycemia Simple Syrup (Simple Syrup) 30 ml FEEDTUBE PRN PRN PRN Reason: Hypoglycemia Simvastatin (Zocor) 20 mg PO QHS EARNEST Last Admin: 01/19/17 23:46 Dose: 20 mg Sodium Bicarbonate (Sodium Bicarbonate) 325 mg FEEDTUBE PRN PRN PRN Reason: For Clogged Feeding Tube Sodium Chloride (Nacl 0.9% 500 Ml) 1 ml IV DIRECT EARNEST Sodium Chloride (Sodium Chloride Flush Syringe 10 Ml) 10 ml IV PRN PRN PRN Reason: LINE FLUSH Review of Systems ROS unobtainable: due to endotracheal tube, due to mental status Physical Examination Vital Signs BP Pulse Ox 182/99 98 01/18/17 23:53 01/18/17 23:53 General appearance: other (intubated, sedated) HEENT: Positive: Normocephaly Neck: Positive: neck supple, trachea midline Cardiac: Positive: Reg Rate and Rhythm, S1/S2 Lungs: Positive: Decreased Breath Sounds, Ventilated Respirations Neuro: Positive: Other (intubated, sedated; right arm stiffness and shaking) Abdomen: Positive: Unremarkable Skin: Negative: Rash, Wound Musculoskeletal: No Fluid Collection Extremities: Absent: edema Results 01/20/17 03:47 01/20/17 03:47 CBC 01/20/17 Range/Units 03:47 WBC 8.8 (4.5-11.0) K/mm3 RBC 5.11 H (3.65-5.03) M/mm3 Hgb 16.1 H (11.8-15.2) gm/dl Hct 48.6 H (35.5-45.6) % Plt Count 110 L (140-440) K/mm3 Lymph # 1.9 (1.2-5.4) K/mm3 [place]son # 1.3 H (0.0-0.8) K/mm3 Eos # 0.1 (0.0-0.4) K/mm3 Baso # 0.0 (0.0-0.1) K/mm3 Comprehensive Metabolic Panel 01/20/17 Range/Units 03:47 Sodium 136 L (137-145) mmol/L Potassium 4.9 D (3.6-5.0) mmol/L Chloride 104.2 (98-107) mmol/L Carbon Dioxide 20 L (22-30) mmol/L BUN 20 (9-20) mg/dL Creatinine 2.0 H D (0.8-1.5) mg/dL Glucose 96 (75-100) mg/dL Calcium 8.1 L (8.4-10.2) mg/dL - Imaging and Cardiology Echo: pending, report reviewed (11/2012: EF 45-50%, mildly dilated LA, impaired relaxation, AV bioprosthesis without stenosis or regurgitation, mild MR) EKG: image reviewed EKG interpretations - Telemetry EKG Rhythm: Sinus Rhythm - EKG Sinus rhythms and dysrhythmias: sinus rhythm Repolarization changes or abnormalities: nonspecific abnormality, ST segment, and/or T wave Assessment and Plan Assessment: Seizure d/o vs. CVA - head CT with NAF; carotid studies show <50% stenosis bilaterally Acute respiratory failure - intubated Elevated troponin - negative x 2 with minimal elevation of 3rd set; ECG with NAF ; suspect secondary to seizure activity CAD s/p CABG- HIRSCH to LAD, saphenous graft to anterolateral obtuse margin (2012) s/p AVR with bioprosthesis (10/2012) Accelerated HTN HLP DM Morbid obesity Plan: Await echo. Cont to trend SLOANE. Repeat EKG in AM. Cont statin & BB. Cont ASA and resume home plavix if okay per neuro. Cont close observation on tele and supportive management per primary. Consider ischemic evaluation once medically stabilized. The patient has been seen in conjunction with Dr. Chun who agrees with the assessment and plan of care.
[2017-01-20] MEDS: LOPRESSOR IV SCH (17:46)
[2017-01-20 19:31] LABS: Creatine Kinase MB 1.6 ng/mL (0.0-4.0)
[2017-01-20] MEDS: SUBLIMAZE 2,000 MCG in NACL 0.9% 60 ML IV SCH (20:15)
[2017-01-20] MEDS: LEVAQUIN 750MG/150ML 750 MG/150 ML BAG IV SCH (20:51)
[2017-01-20] MEDS: ZOCOR PO SCH (22:24)
[2017-01-21] MEDS: LOPRESSOR IV SCH ×3 (00:56→17:25)
[2017-01-21] MEDS ORDERED: fentaNYL DRIP Premix 2,000 MCG/100 ML BAG IV ONE ×2 (01:54→06:48)
[2017-01-21] MEDS: SUBLIMAZE 2,000 MCG in NACL 0.9% 60 ML IV SCH ×2 (02:06→06:49)
[2017-01-21 06:04] LABS: ISTAT Base Excess -6; ISTAT HCO3 18.7; ISTAT PH 7.417 (7.35-7.45); ISTAT PO2 74 (80-105); ISTAT SO2 95; ISTAT TCO2 20
--- NOTE | 2017-01-21 07:05 | XRay Report ---
Single view abdomen: History: Post Dobbhoff insertion. Findings: Tip of the above feeding tube is noted in fundus of stomach. No bowel distention. Impression: Tip of Dobbhoff feeding tube is noted in the stomach.
--- NOTE | 2017-01-21 07:32 | XRay Report ---
Single view chest: Compared to 01/20/17. History: Followup of respiratory failure. Findings: Borderline cardiomegaly. Trachea is midline. Evidence of emphysema. No consolidation or pleural effusion. Tip of endotracheal tube just above polo. Impression: No acute cardiopulmonary findings.
[2017-01-21] MEDS: NOVOLOG SUB-Q SCH ×4 (08:19→21:54)
[2017-01-21] MEDS ORDERED: KEPPRA 1,000 MG/NS 0.75% 100ML 0 MG/0 ML BAG IV ONE (10:29)
[2017-01-21] MEDS: KEPPRA 500 MG in D5W 100 ML IV SCH (10:37)
[2017-01-21] MEDS: ASPIRIN PO SCH (10:38)
[2017-01-21] MEDS: LOVENOX SUB-Q SCH (11:00)
--- NOTE | 2017-01-21 12:12 | Progress Note ---
Assessment and Plan Acute respiratory failure-hypoxic - Lung protective strategies -VAP bundle addressed -HOB>40%, -VTE prophylaxis -Stress ulcer prophylaxis -Small bowel feeding tube, initiate nutrition -Daily SAT -Daily SBT to assess readiness for liberation from mechanical ventilatory support -Escamilla catheter in this critically ill patient with acute kidney injury -Agitation/analgesia CVA VS Complex seizure - head CT with no acute intracranial bleed/mass or shift; carotid studies show < 50% stenosis bilaterally - get MRI brain pending - secondary stroke prophylaxis -Anti-epileptic drugs, defer Neurology Hypertension, malignant on admission - now hypotensive - Monitor hemodynamics closely. SIRS - emipric antibiotics while awaiting cultures. -Once cultures are resulted, de-escalate - ARTURO/ATN - monitor renal function, repeat BMP - monitor urine output. -get urine studies, urine soduim, creatinine -get urine eosinophils, rule out active sediment -Avoid nephrotoxic agens and dose all medications for Cr. Clearance Diabetes type 2 - accuchecks, glycemic control with goal blood glucose<180mg/dl Elevated troponin -suspect type 2 NSTEMI -Trend troponins - cardiology following, Ef 55% on Echo CAD s/p CABG - HIRSCH to LAD, saphenous graft to anterolateral obtuse margin (10/2012) - cont aspirin, statin s/p AVR with bioprosthesis (10/2012) - no acute issue now, follow cardiology recommendation Morbid obesity - nutrition counselling when medically stable Patient's son updated at the bedside. His daughter was updated over the phone. All their questions were answered. Goals of care were addressed, patient remains full cardiopulmonary resuscitation in the event of cardiac arrest. - Patient Problems (1) Acute respiratory failure with hypoxia Current Visit: Yes Status: Acute (2) Seizure-like activity Current Visit: Yes Status: Acute (3) Acute renal failure (ARF) Current Visit: Yes Status: Acute Qualifiers: Acute renal failure type: A (4) Acute metabolic encephalopathy Current Visit: No Status: Acute Subjective Date of service: 01/21/17 Principal diagnosis: Complex seizures, Acute respiratory failure on mechanical ventilatory suppo Interval history: Seen and examined. Vitals, labs, medications, chart reviewed. No acute overnight events. Son at the bedside. MRI brain is pending. Sedated, on mechanical ventilatory support Objective - Exam Narrative Exam: GENERAL: well-developed obese -[place] male lying on bed on mechanical ventilation. No patient- ventilator dys-ynchrony HEENT: Normocephalic. Atraumatic. No conjunctival congestion or icterus. Patient has dry mucous membranes. NECK: Trachea midline. CHEST/LUNGS: Clear to auscultated bilaterally, No wheezes crackles or rhonchi. HEART/CARDIOVASCULAR: S1 and S2 positive. ABDOMEN: Abdomen is soft, nontender. Patient has normal bowel sounds. SKIN: There is no rash. Warm and dry. NEURO: Sedated, does not follow command MUSCULOKELETAL: No joint effusion or tenderness. EXTREMITY: No edema, no cyanosis or clubbing. PSYCH: Unable to assess. Vital Signs - 12hr 01/21/17 01/21/17 01/21/17 00:30 00:35 00:56 Temperature Pulse Rate 79 91 H 79 Respiratory 0 L Rate Blood Pressure 121/65 143/85 121/65 Blood Pressure [Right] O2 Sat by Pulse 100 100 Oximetry 01/21/17 01/21/17 01/21/17 01:01 01:30 02:00 Temperature Pulse Rate 85 92 H 106 H Respiratory 0 L 12 7 L Rate Blood Pressure 143/85 168/82 167/81 Blood Pressure [Right] O2 Sat by Pulse 99 98 98 Oximetry 01/21/17 01/21/17 01/21/17 02:24 02:30 03:01 Temperature 100.7 F H Pulse Rate 111 H 102 H Respiratory 15 0 L Rate Blood Pressure 148/90 120/67 Blood Pressure [Right] O2 Sat by Pulse 95 63 L Oximetry 01/21/17 01/21/17 01/21/17 03:30 04:00 04:30 Temperature Pulse Rate 89 80 93 H Respiratory 0 L 22 0 L Rate Blood Pressure 94/52 95/49 94/54 Blood Pressure [Right] O2 Sat by Pulse 99 98 Oximetry 01/21/17 01/21/17 01/21/17 05:00 05:30 05:50 Temperature Pulse Rate 73 84 85 Respiratory 20 6 L Rate Blood Pressure 102/52 133/70 120/75 Blood Pressure [Right] O2 Sat by Pulse 97 98 98 Oximetry 01/21/17 01/21/17 01/21/17 06:00 06:31 07:01 Temperature Pulse Rate 82 90 94 H Respiratory 6 L 5 L 14 Rate Blood Pressure 143/70 153/62 124/71 Blood Pressure [Right] O2 Sat by Pulse 97 97 97 Oximetry 01/21/17 01/21/17 01/21/17 07:16 07:30 08:00 Temperature 100.5 F H Pulse Rate 100 H 95 H 92 H Respiratory 12 7 L 7 L Rate Blood Pressure 120/60 152/81 Blood Pressure 111/78 [Right] O2 Sat by Pulse 96 94 97 Oximetry 01/21/17 01/21/17 01/21/17 08:30 08:47 10:37 Temperature Pulse Rate 92 H 75 Respiratory 7 L 18 Rate Blood Pressure 127/70 136/76 Blood Pressure [Right] O2 Sat by Pulse 98 100 Oximetry CBC and BMP: 01/24/17 05:45 01/24/17 05:45 ABG, PT/INR, D-dimer: ABG POC ABG pH 7.417 (7.35-7.45) 01/21/17 05:54 POC ABG pCO2 29.0 (35-45) L 01/21/17 05:54 POC ABG pO2 74 (80-105) L 01/21/17 05:54 POC ABG HCO3 18.7 01/21/17 05:54 POC ABG Total CO2 20 01/21/17 05:54 POC ABG O2 Sat 95 01/21/17 05:54 PT/INR, D-dimer PT 13.4 Sec. (12.2-14.9) 01/18/17 23:10 INR 0.97 (0.87-1.13) 01/18/17 23:10 Abnormal lab findings: Abnormal Labs 01/19/17 01/19/17 01/19/17 03:45 05:46 07:49 RBC Hgb Hct MCV Plt Count [place] % (Auto) [place] # POC ABG pH 7.295 L POC ABG pCO2 46.4 H POC ABG pO2 231 H Sodium Carbon Dioxide Creatinine POC Glucose 113 H Calcium Total Creatine Kinase Troponin T 0.046 H D HDL Cholesterol 64 H 01/19/17 01/20/17 01/20/17 23:39 03:47 03:47 RBC 5.11 H Hgb 16.1 H Hct 48.6 H MCV 95 H Plt Count 110 L [place] % (Auto) 14.6 H [place] # 1.3 H POC ABG pH POC ABG pCO2 POC ABG pO2 Sodium 136 L Carbon Dioxide 20 L Creatinine 2.0 H D POC Glucose 122 H Calcium 8.1 L Total Creatine Kinase Troponin T HDL Cholesterol 01/20/17 01/20/17 01/20/17 05:18 14:59 22:09 RBC Hgb Hct MCV Plt Count [place] % (Auto) [place] # POC ABG pH POC ABG pCO2 30.4 L POC ABG pO2 Sodium Carbon Dioxide Creatinine POC Glucose 144 H Calcium Total Creatine Kinase 257 H Troponin T HDL Cholesterol 01/21/17 05:54 RBC Hgb Hct MCV Plt Count [place] % (Auto) [place] # POC ABG pH POC ABG pCO2 29.0 L POC ABG pO2 74 L Sodium Carbon Dioxide Creatinine POC Glucose Calcium Total Creatine Kinase Troponin T HDL Cholesterol Chest x-ray: image reviewed Allied health notes reviewed: RT Critical care time in (mins) excluding proc time.: 35 Critical care attestation.: If time is entered above; I have spent that time in minutes in the direct care of this critically ill patient, excluding procedure time.
[2017-01-21 14:21] LABS: Hematocrit 42.3 % (35.5-45.6); Hemoglobin 13.5 gm/dl (11.8-15.2); Mean Corpuscular HGB Conc 32 % (32-34); Mean Corpuscular Hemoglobin 30 pg (28-32); Mean Corpuscular Volume 95 fl (84-94); Platelet Count 106 K/mm3 (140-440); Red Blood Count 4.44 M/mm3 (3.65-5.03); Red Cell Distribution Width 13.7 % (13.2-15.2); White Blood Count 7.5 K/mm3 (4.5-11.0)
[2017-01-21 14:29] LABS: Calcium 7.5 mg/dL (8.4-10.2); Chloride 106.6 mmol/L (98-107); Potassium 3.9 mmol/L (3.6-5.0)
--- NOTE | 2017-01-21 16:01 | Progress Note ---
Assessment and Plan Assessment: Seizure d/o vs. CVA - head CT with NAF; carotid studies show <50% stenosis bilaterally Acute respiratory failure - intubated Elevated troponin - minimally elevated x 1 set with return to negative; ECG with NAF; suspect secondary to seizure activity CAD s/p CABG- HIRSCH to LAD, saphenous graft to anterolateral obtuse margin (2012) s/p AVR with bioprosthesis (10/2012) Accelerated HTN HLP DM Morbid obesity Plan: Await echo. Cont statin & BB. Cont ASA and resume home plavix if okay per neuro. Cont close observation on tele and supportive management per primary. Consider ischemic evaluation once medically stabilized. The patient has been seen in conjunction with Dr. Chun who agrees with the assessment and plan of care. Subjective Date of service: 01/21/17 Principal diagnosis: Complex seizures, Acute respiratory failure on mechanical ventilatory suppo Interval history: Pt remains intubated, nodded head once appropriately to questioning. VSS. Objective Last Vital Signs Temp 98.7 F 01/21/17 14:50 Pulse 88 01/21/17 14:50 Resp 20 01/21/17 14:50 BP 144/76 01/21/17 14:50 Pulse Ox 100 01/21/17 14:50 - Physical Examination General: Other (intubated, minimally responsive) HEENT: Positive: Normocephaly Neck: Positive: neck supple, trachea midline Cardiac: Positive: Reg Rate and Rhythm, S1/S2, Systolic Murmur Lungs: Positive: Decreased Breath Sounds, Ventilated Respirations Neuro: Positive: Other (intubated, minimally responsive) Abdomen: Positive: Unremarkable Skin: Negative: Rash, Wound Musculoskeletal: No Fluid Collection Extremities: Absent: edema - Labs and Meds Cardiac Enzymes 01/20/17 Range/Units 14:59 CK-MB (CK-2) 1.6 (0.0-4.0) ng/mL CBC 01/21/17 Range/Units 14:01 WBC 7.5 (4.5-11.0) K/mm3 RBC 4.44 (3.65-5.03) M/mm3 Hgb 13.5 (11.8-15.2) gm/dl Hct 42.3 D (35.5-45.6) % Plt Count 106 L (140-440) K/mm3 Comprehensive Metabolic Panel 01/21/17 Range/Units 14:01 Sodium 139 (137-145) mmol/L Potassium 3.9 D (3.6-5.0) mmol/L Chloride 106.6 (98-107) mmol/L Carbon Dioxide 18 L (22-30) mmol/L BUN 22 H (9-20) mg/dL Creatinine 1.5 (0.8-1.5) mg/dL Glucose 81 (75-100) mg/dL Calcium 7.5 L (8.4-10.2) mg/dL - Imaging and Cardiology EKG: image reviewed Echo: pending, report reviewed (11/2012: EF 45-50%, mildly dilated LA, impaired relaxation, AV bioprosthesis without stenosis or regurgitation, mild MR) - Telemetry EKG Rhythm: Sinus Rhythm - EKG Sinus rhythms and dysrhythmias: sinus rhythm Repolarization changes or abnormalities: nonspecific abnormality, ST segment, and/or T wave
--- NOTE | 2017-01-21 18:23 | Progress Note ---
Assessment and Plan /CVA VS Complex seizure - head CT with NAF; carotid studies show <50% stenosis bilaterally - cont keppra iv, as needed ativan - MRI brain pending - neurology consulted - cont aspirin, statin with NG tube /SIRS - pt has tachycardia, tachypnea, elevated lactic acid - could be reactive - will cover with Abx empirically until sepsis rulled out - Blood culture negative, sputum culture growing mixed respiratory joni, UA negative - We will await for final culture report /Acute respiratory failure - intubated in the ER - pulmonary following - cont nebulizer breathing treatment, weaning protocol /Hypertension, malignant on admission - now BP hypotensive - off BP meds, monitor carefully - metoprolol iv as needed if SBP >160 ARTURO/ATN - monitor renal function, Cr trended down 1.5 today - iv fluid, free h20 with TF - if cont to decline will consult renal /Diabetes type 2 - SSI, monitor BG q6h /Elevated troponin - negative x 2 with minimal elevation of 3rd set; ECG with NAF; suspect secondary to seizure activity - cardiology following, Ef 55% on Echo /CAD s/p CABG - HIRSCH to LAD, saphenous graft to anterolateral obtuse margin (10/2012) - cont aspirin, statin /s/p AVR with bioprosthesis (10/2012) - no acute issue now, cardiology following /Morbid obesity - nutrition counselling when medically stable /Dvt Px - lovenox Brief History: The pt is an 86 YO male with a past medical history significant for severe aortic stenosis, s/p aortic valve replacement (bioprosthesic valve) and CAD s/p CABG x 2 (HIRSCH to LAD, saphenous graft to anterolateral obtuse margin) in 10/2012 at [place], AMI, hypertension, diabetes, mild COPD, HLP, morbid obesity brought to the ER by caregiver with possible stroke like symptom. Following arrival to ED, TPA was not given because there was concern for complex seizure. Pt was then witnessed to a have tonic-clonic seizure in the emergency room, with sonorous respiration, patient was then intubated in the emergency room. Current Meds: Generic Name Dose Route Start Last Admin Trade Name Freq PRN Reason Stop Dose Admin Acetaminophen 650 mg 01/19/17 02:27 Tylenol PO Q4H PRN Pain, Mild (1-3) Acetaminophen 650 mg 01/19/17 02:27 01/21/17 02:23 Tylenol NJ 650 mg Q4H PRN Administration Pain, Mild (1-3) Lipase/Protease/Amylase 1 each 01/19/17 11:34 Pancreaze 10,500 Unit FEEDTUBE PRN PRN For Clogged Feeding Tube Aspirin 325 mg 01/19/17 10:00 01/21/17 10:38 Aspirin PO 325 mg QDAY EARNEST Administration Bisacodyl 10 mg 01/19/17 02:27 Dulcolax NJ QDAY PRN Constipation Dextrose 50 ml 01/19/17 05:04 D50w (25gm) Syringe IV PRN PRN Hypoglycemia Enoxaparin Sodium 40 mg 01/19/17 10:00 01/20/17 09:54 Lovenox SUB-Q 40 mg QDAY@1000 EARNEST Administration Hydralazine HCl 5 mg 01/19/17 02:19 01/19/17 03:02 Apresoline IV 5 mg Q6HR PRN Administration Hypertension Hydrophilic Ointment 1 applic 01/19/17 01:38 Vaseline Lip Therapy TP Q2HR PRN Dry Lips Midazolam HCl 100 mg/ Sodium 100 mls @ 2 mls/hr 01/19/17 02:00 01/19/17 04:36 Chloride IV 3 mg/hr TITR EARNSET 3 mls/hr Protocol Titration 2 MG/HR Levetiracetam 500 mg/ Dextrose 105 mls @ 400 mls/hr 01/19/17 11:00 01/21/17 10:37 IV 400 mls/hr Q12HR EARNEST Administration Fentanyl 2,000 mcg/ Sodium 100 mls @ 6.4 mls/hr 01/19/17 17:00 01/21/17 06:49 Chloride IV 1 mcg/kg/hr TITR EARNEST 6.4 mls/hr Protocol Administration 1 MCG/KG/HR Levofloxacin/Dextrose 750 mg in 150 mls @ 100 mls/hr 01/19/17 20:00 01/20/17 20:51 Levaquin 750mg/150ml IV 100 mls/hr Q24H EARNEST Administration Protocol Sodium Chloride 1,000 mls @ 100 mls/hr 01/20/17 06:25 01/20/17 06:25 Nacl 0.9% 1000 Ml IV 100 mls/hr DIRECT EARNEST Administration Insulin Aspart 0 units 01/19/17 07:30 01/21/17 08:19 Novolog SUB-Q Not Given ACHS [facility] Protocol Lorazepam 1 mg 01/19/17 02:27 Ativan IV Q4H PRN Seizures Metoprolol Tartrate 5 mg 01/20/17 16:00 01/21/17 10:37 Lopressor IV 5 mg Q8H EARNEST Administration Multi-Ingred Cream/Lotion/Oil/Oint 1 applic 01/19/17 01:38 Artificial Tears Ophth Oint OU Q4HR PRN Dry Eye(s) Ondansetron HCl 4 mg 01/19/17 02:27 Zofran IV Q8H PRN N/V unrelieved by Reglan Simple Syrup 15 ml 01/19/17 11:34 Simple Syrup FEEDTUBE PRN PRN Hypoglycemia Simple Syrup 30 ml 01/19/17 11:34 Simple Syrup FEEDTUBE PRN PRN Hypoglycemia Simvastatin 20 mg 01/19/17 22:00 01/20/17 22:24 Zocor PO 20 mg QHS EARNEST Administration Sodium Bicarbonate 325 mg 01/19/17 11:34 Sodium Bicarbonate FEEDTUBE PRN PRN For Clogged Feeding Tube Sodium Chloride 1 ml 01/19/17 02:00 Nacl 0.9% 500 Ml IV DIRECT EARNEST Sodium Chloride 10 ml 01/19/17 02:27 Sodium Chloride Flush Syringe 10 Ml IV PRN PRN LINE FLUSH Subjective Date of service: 01/21/17 Principal diagnosis: Complex seizures, Acute respiratory failure on mechanical ventilatory suppo Interval history: Patient seen and examined. Still intubated and sedated. No acute issue reported by the RN. Objective - Exam Narrative Exam: GENERAL: well-developed obese -[place] male lying on bed on mechanical ventilation. HEENT: Normocephalic. Atraumatic. No conjunctival congestion or icterus. Patient has dry mucous membranes. ET tube in place, getting tube feeding with NG tube NECK: Trachea midline. CHEST/LUNGS: Clear to auscultated bilaterally, on mechanical ventilation. No wheezes crackles or rhonchi. HEART/CARDIOVASCULAR: S1 and S2 positive. ABDOMEN: Abdomen is soft, nontender. Patient has normal bowel sounds. SKIN: There is no rash. Warm and dry. NEURO: Sedated, does not follow command MUSkulosKELETAL: No joint effusion or tenderness. EXTRIMITY: No edema, no cyanosis or clubbing. PSYCH: Unable to assess. - Constitutional Vitals: Vital Signs - 12hr 01/21/17 01/21/17 01/21/17 06:31 07:01 07:16 Temperature 100.5 F H Pulse Rate 90 94 H 100 H Respiratory 5 L 14 12 Rate Blood Pressure 153/62 124/71 Blood Pressure 111/78 [Right] O2 Sat by Pulse 97 97 96 Oximetry 01/21/17 01/21/17 01/21/17 07:30 08:00 08:30 Temperature Pulse Rate 95 H 92 H 92 H Respiratory 7 L 7 L 7 L Rate Blood Pressure 120/60 152/81 127/70 Blood Pressure [Right] O2 Sat by Pulse 94 97 98 Oximetry 01/21/17 01/21/17 01/21/17 08:47 09:00 09:30 Temperature Pulse Rate 90 79 Respiratory 18 3 L 0 L Rate Blood Pressure 110/58 96/45 Blood Pressure [Right] O2 Sat by Pulse 100 97 98 Oximetry 01/21/17 01/21/17 01/21/17 10:00 10:30 10:37 Temperature Pulse Rate 85 82 75 Respiratory 18 5 L Rate Blood Pressure 143/90 136/76 136/76 Blood Pressure [Right] O2 Sat by Pulse 98 97 Oximetry 01/21/17 01/21/17 01/21/17 11:00 11:30 12:01 Temperature Pulse Rate 67 68 71 Respiratory 0 L 0 L 0 L Rate Blood Pressure 98/48 102/47 140/70 Blood Pressure [Right] O2 Sat by Pulse 98 98 98 Oximetry 01/21/17 01/21/17 01/21/17 12:05 12:30 13:00 Temperature Pulse Rate 80 90 Respiratory 13 9 L 8 L Rate Blood Pressure 132/70 148/70 Blood Pressure [Right] O2 Sat by Pulse 98 98 Oximetry 01/21/17 01/21/17 01/21/17 13:30 14:00 14:30 Temperature Pulse Rate 91 H 91 H 87 Respiratory 0 L 0 L 0 L Rate Blood Pressure 146/90 140/75 144/70 Blood Pressure [Right] O2 Sat by Pulse 96 95 97 Oximetry 01/21/17 01/21/17 01/21/17 14:50 15:01 15:30 Temperature 98.7 F Pulse Rate 88 84 87 Respiratory 20 9 L 6 L Rate Blood Pressure 151/73 158/77 Blood Pressure 144/76 [Right] O2 Sat by Pulse 100 98 97 Oximetry 01/21/17 01/21/17 01/21/17 16:00 16:31 17:00 Temperature 98.7 F Pulse Rate 91 H 92 H 91 H Respiratory 10 L 17 12 Rate Blood Pressure 177/83 177/83 155/74 Blood Pressure 155/74 [Right] O2 Sat by Pulse 98 98 98 Oximetry 01/21/17 01/21/17 17:25 17:31 Temperature Pulse Rate 83 82 Respiratory 6 L Rate Blood Pressure 155/74 155/74 Blood Pressure [Right] O2 Sat by Pulse 98 Oximetry - Labs CBC & Chem 7: 01/21/17 14:01 01/21/17 14:01 Labs: Abnormal lab results 01/20/17 01/20/17 01/21/17 Range/Units 14:59 22:09 05:54 MCV (84-94) fl Plt Count (140-440) K/mm3 POC ABG pCO2 29.0 L (35-45) POC ABG pO2 74 L (80-105) Carbon Dioxide (22-30) mmol/L BUN (9-20) mg/dL POC Glucose 144 H (70-105) Calcium (8.4-10.2) mg/dL Total Creatine Kinase 257 H (55-170) units/L 01/21/17 01/21/17 Range/Units 14:01 14:01 MCV 95 H (84-94) fl Plt Count 106 L (140-440) K/mm3 POC ABG pCO2 (35-45) POC ABG pO2 (80-105) Carbon Dioxide 18 L (22-30) mmol/L BUN 22 H (9-20) mg/dL POC Glucose (70-105) Calcium 7.5 L (8.4-10.2) mg/dL Total Creatine Kinase (55-170) units/L
[2017-01-21] MEDS: LEVAQUIN 750MG/150ML 750 MG/150 ML BAG IV SCH (19:33)
[2017-01-21] MEDS: NACL 0.9% 1000 ML 1,000 ML IV SCH (21:50)
[2017-01-21] MEDS: KEPPRA 500 MG in NACL 0.9% 100 ML IV SCH (22:33)
[2017-01-21] MEDS: ZOCOR PO SCH (22:33)
[2017-01-22] MEDS: LOPRESSOR IV SCH ×3 (00:01→16:30)
[2017-01-22] MEDS: NACL 0.9% 1000 ML 1,000 ML IV SCH (04:34)
--- NOTE | 2017-01-22 07:56 | XRay Report ---
AP CHEST: HISTORY: Followup respiratory failure Lines and support devices are unchanged since yesterday's exam. AP view of the chest demonstrates a normal mediastinal and cardiac contour with clear lungs and normal bony and soft tissue structures. IMPRESSION: No change.
[2017-01-22] MEDS: NOVOLOG SUB-Q SCH ×4 (08:30→22:35)
[2017-01-22 09:47] LABS: Hematocrit 40.9 % (35.5-45.6); Hemoglobin 13.5 gm/dl (11.8-15.2); Mean Corpuscular HGB Conc 33 % (32-34); Mean Corpuscular Hemoglobin 32 pg (28-32); Mean Corpuscular Volume 95 fl (84-94); Platelet Count 102 K/mm3 (140-440); Red Blood Count 4.29 M/mm3 (3.65-5.03); Red Cell Distribution Width 13.4 % (13.2-15.2); White Blood Count 7.3 K/mm3 (4.5-11.0)
--- NOTE | 2017-01-22 09:51 | Progress Note ---
Assessment and Plan Acute Hypoxemic Respiratory Failure Inadvertent extubation Seizures Morbid Obesity Acute Encephalopathy SIRS ARTURO NSTEMI s/p AVR with bioprothetic Valve - will support with NIV (BIPAP) continuous now but scheduled qhs and prn daytime from tomorrow - give scopolamine and short course to reduce secretions especially while on Bipap - continue supplemental oxygen to keep sats > 94% - replace feeding tube and resume tube feeds - prn bronchodilators - continue empiric Keppra and follow EEG / neurology recommendations - seen by cardiology and recommendations reviewed - (ASA, statins and B-blockers ) - continue empiric AB's and follow cultures - follow I's and O's / electrolytes and correct as necessary - continue SSI for glycemic control ....will re-evaluate in am and prn ....observe overnight in ICU as still at risk for acute decompensation / acute seizures with respiratory decompensation on continuous BIPAP .....30' CCT Subjective Date of service: 01/22/17 Principal diagnosis: Complex seizures, Acute respiratory failure on mechanical ventilatory suppo Interval history: Patient is being seen today for: Acute Hypoxemic Respiratory Failure on MVS; Complex Seizures; Acute Encephalopathy Seen and examined at bedside; 24hour events reviewed; nursing and respiratory care staff consulted; no adverse overnight events reported to me; resting in bed ; mild drooling; mildly labored respiratory effort; self extubated earlier; No N /V/F/C; slurred speech Objective Vital Signs - 12hr 01/21/17 01/21/17 01/21/17 22:00 22:31 23:00 Pulse Rate 107 H 103 H 108 H Respiratory 12 10 L 11 L Rate Blood Pressure 142/78 149/84 153/91 O2 Sat by Pulse 98 99 100 Oximetry 01/21/17 01/22/17 01/22/17 23:31 00:00 00:01 Pulse Rate 103 H 104 H Respiratory 9 L 13 Rate Blood Pressure 153/91 136/79 179/84 O2 Sat by Pulse 99 98 Oximetry 01/22/17 01/22/17 01/22/17 00:09 00:25 00:31 Pulse Rate 91 H 92 H 85 Respiratory 11 L 8 L Rate Blood Pressure 136/79 161/84 136/79 O2 Sat by Pulse 97 100 99 Oximetry 01/22/17 01/22/17 01/22/17 01:00 01:31 02:00 Pulse Rate 93 H 91 H 93 H Respiratory 9 L 8 L 7 L Rate Blood Pressure 161/84 161/84 163/82 O2 Sat by Pulse 100 100 98 Oximetry 01/22/17 01/22/17 01/22/17 02:31 03:01 03:31 Pulse Rate 97 H 99 H 92 H Respiratory 14 0 L 0 L Rate Blood Pressure 163/82 116/68 116/68 O2 Sat by Pulse 99 97 97 Oximetry 01/22/17 01/22/17 01/22/17 04:00 04:31 05:00 Pulse Rate 87 90 89 Respiratory 0 L 7 L 0 L Rate Blood Pressure 117/68 117/68 102/57 O2 Sat by Pulse 98 98 98 Oximetry 01/22/17 01/22/17 01/22/17 05:02 05:31 06:01 Pulse Rate 99 H 87 95 H Respiratory 0 L 12 Rate Blood Pressure 175/86 102/57 175/86 O2 Sat by Pulse 100 98 100 Oximetry 01/22/17 01/22/17 01/22/17 06:31 07:00 07:30 Pulse Rate 103 H 99 H 100 H Respiratory 14 24 0 L Rate Blood Pressure 175/86 153/81 148/75 O2 Sat by Pulse 99 97 95 Oximetry 01/22/17 01/22/17 01/22/17 08:00 08:43 08:59 Pulse Rate 94 H 100 H 99 H Respiratory 19 Rate Blood Pressure 137/72 135/69 135/69 O2 Sat by Pulse 95 95 Oximetry Constitutional: lethargic, other (obese; some drooling) Eyes: non-icteric, other (PERRL, EOMI) ENT: oropharynx moist, other (drooling on right side) Neck: supple, no lymphadenopathy, no JVD, other (no thyromegaly) Effort: mildly labored Ascultation: Bilateral: diminished breath sounds, rales (scant in bases) Percussion: Bilateral: not dull Cardiovascular: regular rate and rhythm (S1,S2, systolic murmur), other (No rubs or murmurs) Gastrointestinal: normoactive bowel sounds, non-tender, non-distended (obese), other (no HSM) Integumentary: other (stasis dermatitis bilaterally) Extremities: no cyanosis, no edema, pulses normal, no ischemia or petechiae Neurologic: pupils equal and round, other (lethargic; poor insight) Psychiatric: other (flat affect) CBC and BMP: 01/22/17 09:24 01/22/17 09:24 ABG, PT/INR, D-dimer: ABG POC ABG pH 7.417 (7.35-7.45) 01/21/17 05:54 POC ABG pCO2 29.0 (35-45) L 01/21/17 05:54 POC ABG pO2 74 (80-105) L 01/21/17 05:54 POC ABG HCO3 18.7 01/21/17 05:54 POC ABG Total CO2 20 01/21/17 05:54 POC ABG O2 Sat 95 01/21/17 05:54 PT/INR, D-dimer PT 13.4 Sec. (12.2-14.9) 01/18/17 23:10 INR 0.97 (0.87-1.13) 01/18/17 23:10 Abnormal lab findings: Abnormal Labs 01/19/17 01/19/17 01/19/17 03:45 05:46 07:49 RBC Hgb Hct MCV Plt Count [place] % (Auto) [place] # POC ABG pH 7.295 L POC ABG pCO2 46.4 H POC ABG pO2 231 H Sodium Carbon Dioxide BUN Creatinine POC Glucose 113 H Calcium Total Creatine Kinase Troponin T 0.046 H D HDL Cholesterol 64 H 01/19/17 01/20/17 01/20/17 23:39 03:47 03:47 RBC 5.11 H Hgb 16.1 H Hct 48.6 H MCV 95 H Plt Count 110 L [place] % (Auto) 14.6 H [place] # 1.3 H POC ABG pH POC ABG pCO2 POC ABG pO2 Sodium 136 L Carbon Dioxide 20 L BUN Creatinine 2.0 H D POC Glucose 122 H Calcium 8.1 L Total Creatine Kinase Troponin T HDL Cholesterol 01/20/17 01/20/17 01/20/17 05:18 14:59 22:09 RBC Hgb Hct MCV Plt Count [place] % (Auto) [place] # POC ABG pH POC ABG pCO2 30.4 L POC ABG pO2 Sodium Carbon Dioxide BUN Creatinine POC Glucose 144 H Calcium Total Creatine Kinase 257 H Troponin T HDL Cholesterol 01/21/17 01/21/17 01/21/17 05:54 14:01 14:01 RBC Hgb Hct MCV 95 H Plt Count 106 L [place] % (Auto) [place] # POC ABG pH POC ABG pCO2 29.0 L POC ABG pO2 74 L Sodium Carbon Dioxide 18 L BUN 22 H Creatinine POC Glucose Calcium 7.5 L Total Creatine Kinase Troponin T HDL Cholesterol 01/22/17 01/22/17 08:47 09:24 RBC Hgb Hct MCV 95 H Plt Count 102 L [place] % (Auto) [place] # POC ABG pH POC ABG pCO2 POC ABG pO2 Sodium Carbon Dioxide BUN Creatinine POC Glucose 112 H Calcium Total Creatine Kinase Troponin T HDL Cholesterol Chest x-ray: image reviewed (ETT in good position at the time; no acute process) Allied health notes reviewed: RT
[2017-01-22 10:04] LABS: Calcium 7.8 mg/dL (8.4-10.2); Chloride 109.5 mmol/L (98-107); Potassium 3.8 mmol/L (3.6-5.0)
[2017-01-22] MEDS: KEPPRA 500 MG in NACL 0.9% 100 ML IV SCH ×2 (10:20→22:40)
[2017-01-22] MEDS: ASPIRIN PO SCH (12:53)
[2017-01-22] MEDS: LOVENOX SUB-Q SCH (12:53)
[2017-01-22] MEDS: PEPCID IV SCH ×2 (12:54→22:30)
--- NOTE | 2017-01-22 13:18 | Progress Note ---
Assessment and Plan Assessment: Seizure d/o vs. CVA - head CT with NAF; carotid studies show <50% stenosis bilaterally Acute respiratory failure - intubated Elevated troponin - minimally elevated x 1 set with return to negative; ECG with NAF; suspect secondary to seizure activity CAD s/p CABG- HIRSCH to LAD, saphenous graft to anterolateral obtuse margin (2012) s/p AVR with bioprosthesis (10/2012) Accelerated HTN HLP DM Morbid obesity Plan: Echo reviewed - EF 55-60%, mild to moderate LVH, mild . Cont statin, ASA, BB. Cont close observation on tele and supportive management per primary. Consider ischemic evaluation once medically stabilized. The patient has been seen in conjunction with Dr. Chun who agrees with the assessment and plan of care. Subjective Date of service: 01/22/17 Principal diagnosis: Complex seizures, Acute respiratory failure on mechanical ventilatory suppo Interval history: Pt has been extubated, lethargic. Objective Last Vital Signs Temp 98.7 F 01/21/17 17:00 Pulse 99 H 01/22/17 08:59 Resp 14 01/22/17 08:00 BP 135/69 01/22/17 08:59 Pulse Ox 99 01/22/17 10:36 - Physical Examination General: Other (lethargic) HEENT: Positive: Normocephaly Neck: Positive: neck supple, trachea midline Cardiac: Positive: Reg Rate and Rhythm, S1/S2, Systolic Murmur Lungs: Positive: Decreased Breath Sounds Neuro: Positive: Other (lethargic) Abdomen: Positive: Unremarkable Skin: Negative: Rash, Wound Musculoskeletal: No Fluid Collection Extremities: Absent: edema - Labs and Meds CBC 01/21/17 01/22/17 Range/Units 14:01 09:24 WBC 7.5 7.3 (4.5-11.0) K/mm3 RBC 4.44 4.29 (3.65-5.03) M/mm3 Hgb 13.5 13.5 (11.8-15.2) gm/dl Hct 42.3 D 40.9 (35.5-45.6) % Plt Count 106 L 102 L (140-440) K/mm3 Comprehensive Metabolic Panel 01/21/17 01/22/17 Range/Units 14:01 09:24 Sodium 139 142 (137-145) mmol/L Potassium 3.9 D 3.8 (3.6-5.0) mmol/L Chloride 106.6 109.5 H (98-107) mmol/L Carbon Dioxide 18 L 20 L (22-30) mmol/L BUN 22 H 18 (9-20) mg/dL Creatinine 1.5 1.4 (0.8-1.5) mg/dL Glucose 81 120 H (75-100) mg/dL Calcium 7.5 L 7.8 L (8.4-10.2) mg/dL - Imaging and Cardiology EKG: image reviewed Echo: report reviewed (EF 55-60%, mild to moderate LVH, mild ) - Telemetry EKG Rhythm: Sinus Rhythm - EKG Sinus rhythms and dysrhythmias: sinus rhythm Repolarization changes or abnormalities: nonspecific abnormality, ST segment, and/or T wave
--- NOTE | 2017-01-22 14:50 | Magnetic Resonance Report ---
MRI OF THE BRAIN WITHOUT CONTRAST: HISTORY: CVA PROCEDURE: Multiplanar, multisequence MR imaging of the brain without IV contrast was performed. FINDINGS: Mild diffuse volume loss and mild nonspecific chronic white matter changes are stable since 11/03/16. The remaining brain parenchyma has normal signal on all sequences. No evidence for acute ischemia, hemorrhage or mass. No chronic infarct or extra-axial fluid collection. The midline structures are central. The basal cisterns are patent. Normal ventricular size. The orbital cavities and sella turcica demonstrate no abnormality. The visualized paranasal sinuses and mastoid air cells are well aerated. IMPRESSION: Mild volume loss and chronic white matter changes. No acute process noted.
--- NOTE | 2017-01-22 17:14 | Progress Note ---
Assessment and Plan /Acute respiratory failure - Self extubated today - intubated in the ER following admission - pulmonary following - cont nebulizer breathing treatment, supplemental oxygen to keep oxygen saturation greater than 92% /CVA VS Complex seizure - head CT with NAF; carotid studies show <50% stenosis bilaterally - cont keppra iv, as needed ativan - MRI brain obtained today, results pending pending - neurology consulted - cont aspirin, statin with NG tube /SIRS - pt had tachycardia, tachypnea, elevated lactic acid following admission - could be reactive - will cover with Abx empirically until sepsis rulled out - Blood culture negative, sputum culture growing mixed respiratory joni, UA negative - We will await for final culture report /Hypertension, malignant on admission - monitor BP carefully - metoprolol iv as needed if SBP >160 ARTURO/ATN - monitor renal function, Cr trended down 1.4 today - iv fluid, free h20 with TF - if cont to decline will consult renal /Diabetes type 2 - SSI, monitor BG q6h /Elevated troponin - negative x 2 with minimal elevation of 3rd set; ECG with NAF; suspect secondary to seizure activity - cardiology following, Ef 55% on Echo /CAD s/p CABG - HIRSCH to LAD, saphenous graft to anterolateral obtuse margin (10/2012) - cont aspirin, statin /s/p AVR with bioprosthesis (10/2012) - no acute issue now, cardiology following /Morbid obesity - nutrition counselling when medically stable /Dvt Px - lovenox Brief History: The pt is an 86 YO male with a past medical history significant for severe aortic stenosis, s/p aortic valve replacement (bioprosthesic valve) and CAD s/p CABG x 2 (HIRSCH to LAD, saphenous graft to anterolateral obtuse margin) in 10/2012 at [place], AMI, hypertension, diabetes, mild COPD, HLP, morbid obesity brought to the ER by caregiver with possible stroke like symptom. Following arrival to ED, TPA was not given because there was concern for complex seizure. Pt was then witnessed to a have tonic-clonic seizure in the emergency room, with sonorous respiration, patient was then intubated in the emergency room. Patient was admitted to the intensive care unit, critical care is following the patient. Current Meds: Generic Name Dose Route Start Last Admin Trade Name Freq PRN Reason Stop Dose Admin Acetaminophen 650 mg 01/19/17 02:27 Tylenol PO Q4H PRN Pain, Mild (1-3) Acetaminophen 650 mg 01/19/17 02:27 01/21/17 02:23 Tylenol ND 650 mg Q4H PRN Administration Pain, Mild (1-3) Lipase/Protease/Amylase 1 each 01/19/17 11:34 Pancreferoz Carrera 10,500 Unit FEEDTUBE PRN PRN For Clogged Feeding Tube Aspirin 325 mg 01/19/17 10:00 01/21/17 10:38 Aspirin PO 325 mg QDAY EARNEST Administration Bisacodyl 10 mg 01/19/17 02:27 Dulcolax ND QDAY PRN Constipation Dextrose 50 ml 01/19/17 05:04 D50w (25gm) Syringe IV PRN PRN Hypoglycemia Enoxaparin Sodium 40 mg 01/19/17 10:00 01/20/17 09:54 Lovenox SUB-Q 40 mg QDAY@1000 EARNEST Administration Hydralazine HCl 5 mg 01/19/17 02:19 01/19/17 03:02 Apresoline IV 5 mg Q6HR PRN Administration Hypertension Hydrophilic Ointment 1 applic 01/19/17 01:38 Vaseline Lip Therapy TP Q2HR PRN Dry Lips Midazolam HCl 100 mg/ Sodium 100 mls @ 2 mls/hr 01/19/17 02:00 01/19/17 04:36 Chloride IV 3 mg/hr TITR EARNEST 3 mls/hr Protocol Titration 2 MG/HR Levetiracetam 500 mg/ Dextrose 105 mls @ 400 mls/hr 01/19/17 11:00 01/21/17 10:37 IV 400 mls/hr Q12HR EARNEST Administration Fentanyl 2,000 mcg/ Sodium 100 mls @ 6.4 mls/hr 01/19/17 17:00 01/21/17 06:49 Chloride IV 1 mcg/kg/hr TITR EARNEST 6.4 mls/hr Protocol Administration 1 MCG/KG/HR Levofloxacin/Dextrose 750 mg in 150 mls @ 100 mls/hr 01/19/17 20:00 01/20/17 20:51 Levaquin 750mg/150ml IV 100 mls/hr Q24H EARNEST Administration Protocol Sodium Chloride 1,000 mls @ 100 mls/hr 01/20/17 06:25 01/20/17 06:25 Nacl 0.9% 1000 Ml IV 100 mls/hr DIRECT EARNEST Administration Insulin Aspart 0 units 01/19/17 07:30 01/21/17 08:19 Novolog SUB-Q Not Given ACHS COUNT INCLUDES THE [facility] Protocol Lorazepam 1 mg 01/19/17 02:27 Ativan IV Q4H PRN Seizures Metoprolol Tartrate 5 mg 01/20/17 16:00 01/21/17 10:37 Lopressor IV 5 mg Q8H EARNEST Administration Multi-Ingred Cream/Lotion/Oil/Oint 1 applic 01/19/17 01:38 Artificial Tears Ophth Oint OU Q4HR PRN Dry Eye(s) Ondansetron HCl 4 mg 01/19/17 02:27 Zofran IV Q8H PRN N/V unrelieved by Reglan Simple Syrup 15 ml 01/19/17 11:34 Simple Syrup FEEDTUBE PRN PRN Hypoglycemia Simple Syrup 30 ml 01/19/17 11:34 Simple Syrup FEEDTUBE PRN PRN Hypoglycemia Simvastatin 20 mg 01/19/17 22:00 01/20/17 22:24 Zocor PO 20 mg QHS EARNEST Administration Sodium Bicarbonate 325 mg 01/19/17 11:34 Sodium Bicarbonate FEEDTUBE PRN PRN For Clogged Feeding Tube Sodium Chloride 1 ml 01/19/17 02:00 Nacl 0.9% 500 Ml IV DIRECT EARNEST Sodium Chloride 10 ml 01/19/17 02:27 Sodium Chloride Flush Syringe 10 Ml IV PRN PRN LINE FLUSH Subjective Date of service: 01/22/17 Principal diagnosis: Complex seizures, Acute respiratory failure on mechanical ventilatory suppo Interval history: Patient seen and examined. he self extubated himself, now on ventimask Came back from MRI, given ativan prior to MRI, now sedated No family phone number listed on the chart Objective - Exam Narrative Exam: GENERAL: well-developed obese -[place] male lying on bed on mechanical ventilation. HEENT: Normocephalic. Atraumatic. No conjunctival congestion or icterus. Patient has dry mucous membranes. on breathing mask, getting tube feeding with NG tube NECK: Trachea midline. CHEST/LUNGS: Clear to auscultated bilaterally, on mechanical ventilation. No wheezes crackles or rhonchi. HEART/CARDIOVASCULAR: S1 and S2 positive. ABDOMEN: Abdomen is soft, nontender. Patient has normal bowel sounds. SKIN: There is no rash. Warm and dry. NEURO: Sedated, does not follow command MUSkulosKELETAL: No joint effusion or tenderness. EXTRIMITY: No edema, no cyanosis or clubbing. PSYCH: Unable to assess. - Constitutional Vitals: Vital Signs - 12hr 01/22/17 01/22/17 01/22/17 05:31 06:01 06:31 Pulse Rate 87 95 H 103 H Respiratory 0 L 12 14 Rate Blood Pressure 102/57 175/86 175/86 O2 Sat by Pulse 98 100 99 Oximetry 01/22/17 01/22/17 01/22/17 07:00 07:30 08:00 Pulse Rate 99 H 100 H 94 H Respiratory 24 0 L 19 Rate Blood Pressure 153/81 148/75 137/72 O2 Sat by Pulse 97 95 95 Oximetry 01/22/17 01/22/17 01/22/17 08:30 08:43 08:59 Pulse Rate 96 H 100 H 99 H Respiratory 16 Rate Blood Pressure 135/69 135/69 135/69 O2 Sat by Pulse 95 95 Oximetry 01/22/17 01/22/17 01/22/17 09:00 09:30 10:00 Pulse Rate 94 H 86 87 Respiratory 9 L 7 L 7 L Rate Blood Pressure 151/75 151/78 150/78 O2 Sat by Pulse 92 Oximetry 01/22/17 01/22/17 01/22/17 10:30 10:36 11:00 Pulse Rate 99 H Respiratory 24 Rate Blood Pressure 172/93 177/92 O2 Sat by Pulse 99 99 98 Oximetry 01/22/17 01/22/17 01/22/17 11:30 12:00 12:30 Pulse Rate Respiratory Rate Blood Pressure 170/85 169/85 O2 Sat by Pulse 97 96 97 Oximetry 01/22/17 01/22/17 01/22/17 13:00 13:30 14:30 Pulse Rate Respiratory 27 H 33 H Rate Blood Pressure 142/74 145/76 139/83 O2 Sat by Pulse 97 99 90 Oximetry - Labs CBC & Chem 7: 01/23/17 15:07 01/23/17 15:07 Labs: Abnormal lab results 01/22/17 01/22/17 01/22/17 Range/Units 08:47 09:24 09:24 MCV 95 H (84-94) fl Plt Count 102 L (140-440) K/mm3 Chloride 109.5 H (98-107) mmol/L Carbon Dioxide 20 L (22-30) mmol/L Glucose 120 H (75-100) mg/dL POC Glucose 112 H (70-105) Calcium 7.8 L (8.4-10.2) mg/dL
[2017-01-22] MEDS ORDERED: PROVENTIL IH PRN (18:18)
[2017-01-22] MEDS ORDERED: ROBINUL PO STA (18:18)
[2017-01-22] MEDS: ATIVAN IV PRN ×2 (19:00→23:00)
[2017-01-22] MEDS ORDERED: TRANSDERM-SCOP TD SCH (19:00)
[2017-01-22] MEDS: LEVAQUIN 750MG/150ML 750 MG/150 ML BAG IV SCH (20:50)
[2017-01-22] MEDS: ZOCOR PO SCH (22:00)
--- NOTE | 2017-01-22 22:33 | XRay Report ---
FINAL REPORT EXAM: XR ABDOMEN 1V AP HISTORY: tube placment TECHNIQUE: Abdomen supine AP PRIORS: None. FINDINGS: There is an NG tube present. Distal end overlies right lower lung in the distribution right lower lobe bronchus Gastric distention noted. No additional acute findings identified in the visualized portion of the abdomen or chest. IMPRESSION: Mild position of the NG tube in right lower lobe bronchus. Repositioning recommended Gastric distention
--- NOTE | 2017-01-23 00:03 | XRay Report ---
FINAL REPORT EXAM: XR ABDOMEN 1V AP HISTORY: tube placement dobbhoff TECHNIQUE: Supine abdomen PRIORS: Comparison with today's earlier exam FINDINGS: Dobhoff tube is been repositioned. Distal tip now overlies the fundus of the stomach in satisfactory position. Stomach is partially decompressed. No additional acute change identified. IMPRESSION: Reposition Dobhoff tube now in satisfactory position. There is been some decompression of the stomach
[2017-01-23] MEDS ORDERED: REGLAN ONE (00:42)
[2017-01-23] MEDS: LOPRESSOR IV SCH ×2 (00:55→10:02)
[2017-01-23] MEDS ORDERED: REGLAN IV ONE (03:47)
[2017-01-23] MEDS: NACL 0.9% 1000 ML 1,000 ML IV SCH (04:40)
--- NOTE | 2017-01-23 08:57 | Progress Note ---
Assessment and Plan Seizure d/o vs. CVA - head CT with NAF; carotid studies show <50% stenosis bilaterally Acute respiratory failure - is/p extubated nstemi type 2 CAD s/p CABG- HIRSCH to LAD, saphenous graft to anterolateral obtuse margin (2012) s/p AVR with bioprosthesis (10/2012) Accelerated HTN HLP DM Morbid obesity rec; patient self extubated on a Ventimask has normal function echocardiogram blood pressure is elevated we initiated beta marquita therapy and hydralazine and we'll continue to monitor blood pressure Subjective Date of service: 01/23/17 Principal diagnosis: Complex seizures, Acute respiratory failure on mechanical ventilatory suppo Interval history: pt self extubated yesterday and pt on vm mask, lethargic Objective Vital Signs Pulse Resp BP Pulse Ox 01/23/17 06:00 96 H 19 180/95 100 01/23/17 05:30 101 H 16 180/95 99 01/23/17 05:00 102 H 25 H 180/95 99 01/23/17 04:50 95 01/23/17 04:30 108 H 28 H 180/95 89 01/23/17 04:00 97 H 22 180/95 91 01/23/17 03:30 88 27 H 180/95 99 01/23/17 03:05 88 20 98 01/23/17 03:00 90 15 180/95 95 01/23/17 02:30 84 24 175/92 94 01/23/17 02:00 79 20 171/92 99 01/23/17 01:30 78 21 159/92 98 01/23/17 01:00 77 19 160/89 98 01/23/17 00:55 87 161/88 01/23/17 00:30 83 14 161/88 98 01/23/17 00:00 85 24 163/90 98 01/22/17 23:30 84 20 162/87 98 01/22/17 23:03 86 24 156/95 100 01/22/17 23:00 27 H 166/98 99 01/22/17 22:34 86 22 156/95 100 01/22/17 22:30 86 22 156/95 100 01/22/17 22:03 88 22 147/93 99 01/22/17 22:00 90 22 147/93 99 01/22/17 21:30 89 24 160/89 99 01/22/17 21:00 88 17 154/91 99 01/22/17 20:30 89 19 146/89 100 01/22/17 20:00 29 H 151/94 99 01/22/17 19:30 92 H 24 138/83 98 01/22/17 19:00 27 H 145/84 100 01/22/17 18:30 91 H 29 H 161/82 99 01/22/17 18:00 91 H 26 H 159/87 98 01/22/17 17:30 94 H 25 H 153/86 01/22/17 17:00 98 H 21 143/80 97 01/22/17 16:30 89 17 123/67 96 01/22/17 16:00 152/85 98 01/22/17 15:30 87 20 152/85 99 01/22/17 15:00 89 26 H 151/85 98 01/22/17 14:30 139/83 90 01/22/17 13:30 33 H 145/76 99 01/22/17 13:00 27 H 142/74 97 01/22/17 12:30 169/85 97 01/22/17 12:00 170/85 96 01/22/17 11:30 97 01/22/17 11:00 177/92 98 01/22/17 10:36 99 01/22/17 10:30 99 H 24 172/93 99 01/22/17 10:00 87 7 L 150/78 01/22/17 09:30 86 7 L 151/78 92 01/22/17 09:00 94 H 9 L 151/75 01/22/17 08:59 99 H 135/69 - Physical Examination General: Other (lethargic) HEENT: Positive: PERRL, Normocephaly Neck: Positive: neck supple, trachea midline Cardiac: Positive: Reg Rate and Rhythm Lungs: Positive: clear to auscultation Neuro: Positive: Other (lethargic) Abdomen: Positive: Unremarkable Skin: Negative: Rash, Wound Musculoskeletal: No Fluid Collection Extremities: Absent: edema - Labs and Meds CBC 01/22/17 Range/Units 09:24 WBC 7.3 (4.5-11.0) K/mm3 RBC 4.29 (3.65-5.03) M/mm3 Hgb 13.5 (11.8-15.2) gm/dl Hct 40.9 (35.5-45.6) % Plt Count 102 L (140-440) K/mm3 Comprehensive Metabolic Panel 01/22/17 Range/Units 09:24 Sodium 142 (137-145) mmol/L Potassium 3.8 (3.6-5.0) mmol/L Chloride 109.5 H (98-107) mmol/L Carbon Dioxide 20 L (22-30) mmol/L BUN 18 (9-20) mg/dL Creatinine 1.4 (0.8-1.5) mg/dL Glucose 120 H (75-100) mg/dL Calcium 7.8 L (8.4-10.2) mg/dL - Imaging and Cardiology EKG: image reviewed Echo: report reviewed (EF 55-60%, mild to moderate LVH, mild ) - EKG Sinus rhythms and dysrhythmias: sinus rhythm Repolarization changes or abnormalities: nonspecific abnormality, ST segment, and/or T wave - Allied health notes Allied health notes reviewed: RT
[2017-01-23] MEDS: NOVOLOG SUB-Q SCH ×2 (09:19→12:20)
[2017-01-23 09:28] LABS: ISTAT Base Excess -7; ISTAT HCO3 20.1; ISTAT PCO2 42.2 (35-45); ISTAT PH 7.286 (7.35-7.45); ISTAT PO2 89 (80-105); ISTAT SO2 96; ISTAT TCO2 21
[2017-01-23] MEDS ORDERED: APRESOLINE PO SCH (09:30)
[2017-01-23] MEDS: ASPIRIN PO SCH (09:30)
[2017-01-23] MEDS: LOVENOX SUB-Q SCH ×2 (09:31→22:39)
--- NOTE | 2017-01-23 09:51 | XRay Report ---
AP CHEST: HISTORY: Followup respiratory failure Heart size remains within normal limits. The lungs are generally clear. There is minor discoid atelectasis or scarring in the right upper lobe. No pleural effusion or pneumothorax. IMPRESSION: No acute cardiopulmonary process.
--- NOTE | 2017-01-23 09:52 | XRay Report ---
SUPINE KUB at 1641 hrs.: History: Feeding tube placement. Findings: The feeding tube is essentially unchanged in position since earlier today at 1631 hrs. and terminates in the distal esophagus. The remainder of the examination is unchanged. IMPRESSION: The feeding tube terminates in the distal esophagus.
--- NOTE | 2017-01-23 09:53 | XRay Report ---
SUPINE KUB at 1631 hrs.: History: Feeding tube placement. A feeding tube has been inserted which terminates just beyond the GE junction. Advancement by at least 10 cm is recommended. The stomach appears dilated with gas. The remaining visualized bowel loops are normal caliber. IMPRESSION: Feeding tube terminates at or just beyond the GE junction, advancement is recommended.
[2017-01-23] MEDS ORDERED: LOPRESSOR PO SCH (10:00)
[2017-01-23] MEDS: PEPCID IV SCH (10:26)
[2017-01-23] MEDS: KEPPRA 500 MG in NACL 0.9% 100 ML IV SCH (12:12)
--- NOTE | 2017-01-23 15:38 | Progress Note ---
Assessment and Plan Acute Hypoxemic Respiratory Failure on NIV Inadvertent extubation Seizures Morbid Obesity Acute Encephalopathy SIRS ARTURO NSTEMI s/p AVR with bioprothetic Valve (Had extensive discussion with his son; he does not think the family / patient will want intubation / resuscitation but will talk to them first; in meantime he wants all other aggressive measures done) - Resume continuous BIPAP support - repeat ABG stat - stop robinul but continue scopolamine (to reduce any anticholinergic delirium component) - continue supplemental oxygen to keep sats > 94% - continue enteral nutrition (tube feeds going at 45mls/hr) - schedule bronchodilators - continue empiric Keppra and follow EEG / neurology recommendations - seen by cardiology and recommendations reviewed - (ASA, statins and B-blockers ) - continue empiric AB's and follow cultures (NGTD) - follow I's and O's / electrolytes and correct as necessary - continue SSI for glycemic control ....will re-evaluate in am and prn ....observe overnight in ICU status as he is high risk for acute decompensation / acute seizures with respiratory decompensation, back on continuous BIPAP and still a full CODE .....30' CCT without overlap Subjective Date of service: 01/23/17 Principal diagnosis: Complex seizures, Acute respiratory failure on mechanical ventilatory suppo Interval history: Patient is being seen today for: Acute Hypoxemic Respiratory Failure with persistent SOB despite BIPAP therapy and Sepsis Syndrome; Complex Seizures; Acute Encephalopathy Seen and examined at bedside; 24hour events reviewed; nursing and respiratory care staff consulted; no adverse overnight events reported to me; remains SOB and with labored breathing; lethargic; oropharyngeal secretions better on scopolamine; no N/V/F/C; metabolic acidosis is worsening and he is unable to compensate resp cardenas Objective Vital Signs - 12hr 01/23/17 01/23/17 01/23/17 04:00 04:30 04:50 Pulse Rate 97 H 108 H Respiratory 22 28 H Rate Blood Pressure 180/95 180/95 O2 Sat by Pulse 91 89 95 Oximetry 01/23/17 01/23/17 01/23/17 05:00 05:30 06:00 Pulse Rate 102 H 101 H 96 H Respiratory 25 H 16 19 Rate Blood Pressure 180/95 180/95 180/95 O2 Sat by Pulse 99 99 100 Oximetry 10/11/0201/23/17 01/23/17 09:21 10:02 10:25 Pulse Rate 87 87 Respiratory Rate Blood Pressure 165/98 165/98 O2 Sat by Pulse 99 Oximetry 01/23/17 10:26 Pulse Rate 87 Respiratory Rate Blood Pressure 165/98 O2 Sat by Pulse Oximetry Constitutional: lethargic, appears uncomfortable Eyes: non-icteric, other (PERRL, EOMI) ENT: oropharynx dry Neck: supple, no lymphadenopathy, no JVD, other (no thyromegaly) Effort: mildly labored Ascultation: Bilateral: diminished breath sounds, rales (scant in bases), other (referred upper airway sounds) Percussion: Bilateral: not dull Cardiovascular: regular rate and rhythm (S1,S2, systolic murmur), other (No rubs or murmurs) Gastrointestinal: normoactive bowel sounds, non-tender, non-distended (obese), other (no HSM) Integumentary: other (stasis dermatitis bilaterally) Extremities: no cyanosis, no edema, pulses normal, no ischemia or petechiae Neurologic: pupils equal and round, other (lethargic; poor insight) Psychiatric: other (flat affect) CBC and BMP: 01/22/17 09:24 01/22/17 09:24 ABG, PT/INR, D-dimer: ABG POC ABG pH 7.286 (7.35-7.45) L 01/23/17 09:22 POC ABG pCO2 42.2 (35-45) 01/23/17 09:22 POC ABG pO2 89 (80-105) 01/23/17 09:22 POC ABG HCO3 20.1 01/23/17 09:22 POC ABG Total CO2 21 01/23/17 09:22 POC ABG O2 Sat 96 01/23/17 09:22 PT/INR, D-dimer PT 13.4 Sec. (12.2-14.9) 01/18/17 23:10 INR 0.97 (0.87-1.13) 01/18/17 23:10 Abnormal lab findings: Abnormal Labs 01/19/17 01/19/17 01/19/17 03:45 05:46 07:49 RBC Hgb Hct MCV Plt Count [place] % (Auto) [place] # POC ABG pH 7.295 L POC ABG pCO2 46.4 H POC ABG pO2 231 H Sodium Chloride Carbon Dioxide BUN Creatinine Glucose POC Glucose 113 H Calcium Total Creatine Kinase Troponin T 0.046 H D HDL Cholesterol 64 H 01/19/17 01/20/17 01/20/17 23:39 03:47 03:47 RBC 5.11 H Hgb 16.1 H Hct 48.6 H MCV 95 H Plt Count 110 L [place] % (Auto) 14.6 H [place] # 1.3 H POC ABG pH POC ABG pCO2 POC ABG pO2 Sodium 136 L Chloride Carbon Dioxide 20 L BUN Creatinine 2.0 H D Glucose POC Glucose 122 H Calcium 8.1 L Total Creatine Kinase Troponin T HDL Cholesterol 01/20/17 01/20/17 01/20/17 05:18 14:59 22:09 RBC Hgb Hct MCV Plt Count [place] % (Auto) [place] # POC ABG pH POC ABG pCO2 30.4 L POC ABG pO2 Sodium Chloride Carbon Dioxide BUN Creatinine Glucose POC Glucose 144 H Calcium Total Creatine Kinase 257 H Troponin T HDL Cholesterol 01/21/17 01/21/17 01/21/17 05:54 14:01 14:01 RBC Hgb Hct MCV 95 H Plt Count 106 L [place] % (Auto) [place] # POC ABG pH POC ABG pCO2 29.0 L POC ABG pO2 74 L Sodium Chloride Carbon Dioxide 18 L BUN 22 H Creatinine Glucose POC Glucose Calcium 7.5 L Total Creatine Kinase Troponin T HDL Cholesterol 01/22/17 01/22/17 01/22/17 08:47 09:24 09:24 RBC Hgb Hct MCV 95 H Plt Count 102 L [place] % (Auto) [place] # POC ABG pH POC ABG pCO2 POC ABG pO2 Sodium Chloride 109.5 H Carbon Dioxide 20 L BUN Creatinine Glucose 120 H POC Glucose 112 H Calcium 7.8 L Total Creatine Kinase Troponin T HDL Cholesterol 01/22/17 01/23/17 01/23/17 17:34 09:22 12:22 RBC Hgb Hct MCV Plt Count [place] % (Auto) [place] # POC ABG pH 7.286 L POC ABG pCO2 POC ABG pO2 Sodium Chloride Carbon Dioxide BUN Creatinine Glucose POC Glucose 110 H 127 H Calcium Total Creatine Kinase Troponin T HDL Cholesterol Chest x-ray: image reviewed Allied health notes reviewed: RT
[2017-01-23 15:59] LABS: Anion Gap 18 mmol/L; BUN/Creatinine Ratio 15; Blood Urea Nitrogen 15 mg/dL (9-20); Calcium 7.5 mg/dL (8.4-10.2); Carbon Dioxide 19 mmol/L (22-30); Chloride 109.7 mmol/L (98-107); Glucose 106 mg/dL (75-100); Potassium 5.7 mmol/L (3.6-5.0); Sodium 141 mmol/L (137-145)
[2017-01-23 16:00] LABS: ABG Base Excess -3.5 mmol/L (-2.0-3.0); ABG HCO3 22.8 mmol/L (20.0-26.0); ABG Oxygen Saturation 97.9 % (95.0-99.0); ABG PCO2 45.5 mm Hg; ABG PH 7.317 pH Units (7.350-7.450); ABG PO2 115.3 mm Hg (80.0-90.0)
[2017-01-23 16:13] LABS: Hemoglobin 18.4 gm/dl (11.8-15.2); Mean Corpuscular HGB Conc 33 % (32-34); Mean Corpuscular Hemoglobin 31 pg (28-32); Mean Corpuscular Volume 94 fl (84-94); Red Blood Count 5.98 M/mm3 (3.65-5.03); Red Cell Distribution Width 13.1 % (13.2-15.2); White Blood Count 9.1 K/mm3 (4.5-11.0)
[2017-01-23 16:34] LABS: Platelet Count 79 K/mm3 (140-440)
[2017-01-23 16:52] LABS: Basophils % (Manual) 0 % (0.0-1.8); Blastocytes % (Manual) 0 %; Eosinophils % (Manual) 0 % (0.0-4.3); Ovalocytes Few; Platelet Estimate Consistent w Auto
[2017-01-23 16:53] LABS: Diff Status Complete
--- NOTE | 2017-01-23 16:58 | Progress Note ---
Assessment and Plan /Acute respiratory failure - Self extubated on 01/22/17 - intubated in the ER following admission - pulmonary following - cont nebulizer breathing treatment, supplemental oxygen to keep oxygen saturation greater than 92% with BiPAP /Complex seizure, CVA ruled out - head CT with NAF; carotid studies show <50% stenosis bilaterally - cont keppra iv, as needed ativan - MRI brain obtained showed no acute CVA - neurology consulted - cont plavix, statin with Dobbhoff tube /SIRS - pt had tachycardia, tachypnea, elevated lactic acid following admission - could be reactive - will cover with Abx empirically until sepsis rulled out - Blood culture negative, sputum culture growing mixed respiratory joni, UA negative - We will await for final culture report /Hypertension, malignant on admission - monitor BP carefully - metoprolol iv as needed if SBP >160 - will resume coreg, plavix and statin ARTURO/ATN - monitor renal function, Cr trended down to normal today - iv fluid, free h20 with TF - if cont to decline will consult renal /Diabetes type 2 - SSI, monitor BG q6h /Elevated troponin - negative x 2 with minimal elevation of 3rd set; ECG with NAF; suspect secondary to seizure activity - cardiology following, Ef 55% on Echo /CAD s/p CABG - HIRSCH to LAD, saphenous graft to anterolateral obtuse margin (10/2012) - cont aspirin, statin /s/p AVR with bioprosthesis (10/2012) - no acute issue now, cardiology following /Morbid obesity - nutrition counselling when medically stable /Dvt Px - lovenox Brief History: The pt is an 86 YO male with a past medical history significant for severe aortic stenosis, s/p aortic valve replacement (bioprosthesic valve) and CAD s/p CABG x 2 (HIRSCH to LAD, saphenous graft to anterolateral obtuse margin) in 10/2012 at [facility], AM[facility], hypertension, diabetes, mild COPD, HLP, morbid obesity brought to the ER by caregiver with possible stroke like symptom. Following arrival to ED, TPA was not given because there was concern for complex seizure. Pt was then witnessed to a have tonic-clonic seizure in the emergency room, with sonorous respiration, patient was then intubated in the emergency room. Patient was admitted to the intensive care unit, critical care is following the patient. Current Meds: Generic Name Dose Route Start Last Admin Trade Name Freq PRN Reason Stop Dose Admin Acetaminophen 650 mg 01/19/17 02:27 Tylenol PO Q4H PRN Pain, Mild (1-3) Acetaminophen 650 mg 01/19/17 02:27 01/21/17 02:23 Tylenol OR 650 mg Q4H PRN Administration Pain, Mild (1-3) Lipase/Protease/Amylase 1 each 01/19/17 11:34 Pancreaze 10,500 Unit FEEDTUBE PRN PRN For Clogged Feeding Tube Aspirin 325 mg 01/19/17 10:00 01/21/17 10:38 Aspirin PO 325 mg QDAY EARNEST Administration Bisacodyl 10 mg 01/19/17 02:27 Dulcolax OR QDAY PRN Constipation Dextrose 50 ml 01/19/17 05:04 D50w (25gm) Syringe IV PRN PRN Hypoglycemia Enoxaparin Sodium 40 mg 01/19/17 10:00 01/20/17 09:54 Lovenox SUB-Q 40 mg QDAY@1000 EARNEST Administration Hydralazine HCl 5 mg 01/19/17 02:19 01/19/17 03:02 Apresoline IV 5 mg Q6HR PRN Administration Hypertension Hydrophilic Ointment 1 applic 01/19/17 01:38 Vaseline Lip Therapy TP Q2HR PRN Dry Lips Midazolam HCl 100 mg/ Sodium 100 mls @ 2 mls/hr 01/19/17 02:00 01/19/17 04:36 Chloride IV 3 mg/hr TITR EARNEST 3 mls/hr Protocol Titration 2 MG/HR Levetiracetam 500 mg/ Dextrose 105 mls @ 400 mls/hr 01/19/17 11:00 01/21/17 10:37 IV 400 mls/hr Q12HR EARNEST Administration Fentanyl 2,000 mcg/ Sodium 100 mls @ 6.4 mls/hr 01/19/17 17:00 01/21/17 06:49 Chloride IV 1 mcg/kg/hr TITR EARNEST 6.4 mls/hr Protocol Administration 1 MCG/KG/HR Levofloxacin/Dextrose 750 mg in 150 mls @ 100 mls/hr 01/19/17 20:00 01/20/17 20:51 Levaquin 750mg/150ml IV 100 mls/hr Q24H EARNEST Administration Protocol Sodium Chloride 1,000 mls @ 100 mls/hr 01/20/17 06:25 01/20/17 06:25 Nacl 0.9% 1000 Ml IV 100 mls/hr DIRECT EARNEST Administration Insulin Aspart 0 units 01/19/17 07:30 01/21/17 08:19 Novolog SUB-Q Not Given ACHS EARNEST Protocol Lorazepam 1 mg 01/19/17 02:27 Ativan IV Q4H PRN Seizures Metoprolol Tartrate 5 mg 01/20/17 16:00 01/21/17 10:37 Lopressor IV 5 mg Q8H EARNEST Administration Multi-Ingred Cream/Lotion/Oil/Oint 1 applic 01/19/17 01:38 Artificial Tears Ophth Oint OU Q4HR PRN Dry Eye(s) Ondansetron HCl 4 mg 01/19/17 02:27 Zofran IV Q8H PRN N/V unrelieved by Reglan Simple Syrup 15 ml 01/19/17 11:34 Simple Syrup FEEDTUBE PRN PRN Hypoglycemia Simple Syrup 30 ml 01/19/17 11:34 Simple Syrup FEEDTUBE PRN PRN Hypoglycemia Simvastatin 20 mg 01/19/17 22:00 01/20/17 22:24 Zocor PO 20 mg QHS EARNEST Administration Sodium Bicarbonate 325 mg 01/19/17 11:34 Sodium Bicarbonate FEEDTUBE PRN PRN For Clogged Feeding Tube Sodium Chloride 1 ml 01/19/17 02:00 Nacl 0.9% 500 Ml IV DIRECT EARNEST Sodium Chloride 10 ml 01/19/17 02:27 Sodium Chloride Flush Syringe 10 Ml IV PRN PRN LINE FLUSH Subjective Date of service: 01/23/17 Principal diagnosis: Complex seizures, Acute respiratory failure on mechanical ventilatory suppo Interval history: Patient seen and examined. he self extubated himself on 01/22/17, now on BiPAP Discussed with patient's son at bedside Patient's son wanted to transfer the patient to [facility], but he is willing to keep the patient here until transfer could be arranged Objective - Exam Narrative Exam: GENERAL: well-developed obese -[place] male lying on bed on mechanical ventilation. HEENT: Normocephalic. Atraumatic. No conjunctival congestion or icterus. Patient has dry mucous membranes. on BiPAP, getting tube feeding with dobhoff NECK: Trachea midline. CHEST/LUNGS: Clear to auscultated bilaterally, on BiPAP. No wheezes crackles or rhonchi. HEART/CARDIOVASCULAR: S1 and S2 positive. ABDOMEN: Abdomen is soft, nontender. Patient has normal bowel sounds. SKIN: There is no rash. Warm and dry. NEURO: Sedated, does not follow command MUSkulosKELETAL: No joint effusion or tenderness. EXTRIMITY: No edema, no cyanosis or clubbing. PSYCH: Unable to assess. - Constitutional Vitals: Vital Signs - 12hr 01/23/17 01/23/17 01/23/17 05:00 05:30 06:00 Pulse Rate 102 H 101 H 96 H Respiratory 25 H 16 19 Rate Blood Pressure 180/95 180/95 180/95 O2 Sat by Pulse 99 99 100 Oximetry 01/23/17 01/23/17 01/23/17 09:21 10:02 10:25 Pulse Rate 87 87 Respiratory Rate Blood Pressure 165/98 165/98 O2 Sat by Pulse 99 Oximetry 01/23/17 01/23/17 10:26 16:15 Pulse Rate 87 82 Respiratory 20 Rate Blood Pressure 165/98 O2 Sat by Pulse 98 Oximetry - Labs CBC & Chem 7: 01/23/17 15:07 01/23/17 15:07 Labs: Abnormal lab results 01/22/17 01/23/17 01/23/17 Range/Units 17:34 09:22 12:22 RBC (3.65-5.03) M/mm3 Hgb (11.8-15.2) gm/dl Hct (35.5-45.6) % RDW (13.2-15.2) % Plt Count (140-440) K/mm3 Seg Neuts % (Manual) (40.0-70.0) % Lymphocytes % (Manual) (13.4-35.0) % Monocytes % (Manual) (0.0-7.3) % Nucleated RBC % (0.0-0.9) % Lymphocytes # (Manual) (1.2-5.4) K/mm3 POC ABG pH 7.286 L (7.35-7.45) ABG pH (7.350-7.450) pH Units ABG pO2 (80.0-90.0) mm Hg ABG Base Excess (-2.0-3.0) mmol/L Potassium (3.6-5.0) mmol/L Chloride (98-107) mmol/L Carbon Dioxide (22-30) mmol/L Glucose (75-100) mg/dL POC Glucose 110 H 127 H (70-105) Calcium (8.4-10.2) mg/dL C-Reactive Protein (0.00-1.30) mg/dL 01/23/17 01/23/17 01/23/17 Range/Units 15:07 15:07 15:56 RBC 5.98 H (3.65-5.03) M/mm3 Hgb 18.4 H D (11.8-15.2) gm/dl Hct 56.0 H D (35.5-45.6) % RDW 13.1 L (13.2-15.2) % Plt Count 79 L (140-440) K/mm3 Seg Neuts % (Manual) 80.0 H (40.0-70.0) % Lymphocytes % (Manual) 8.0 L (13.4-35.0) % Monocytes % (Manual) 9.0 H (0.0-7.3) % Nucleated RBC % 1.0 H (0.0-0.9) % Lymphocytes # (Manual) 0.7 L (1.2-5.4) K/mm3 POC ABG pH (7.35-7.45) ABG pH 7.317 L (7.350-7.450) pH Units ABG pO2 115.3 H (80.0-90.0) mm Hg ABG Base Excess -3.5 L (-2.0-3.0) mmol/L Potassium 5.7 H D (3.6-5.0) mmol/L Chloride 109.7 H (98-107) mmol/L Carbon Dioxide 19 L (22-30) mmol/L Glucose 106 H (75-100) mg/dL POC Glucose (70-105) Calcium 7.5 L (8.4-10.2) mg/dL C-Reactive Protein (0.00-1.30) mg/dL 01/23/17 Range/Units 16:12 RBC (3.65-5.03) M/mm3 Hgb (11.8-15.2) gm/dl Hct (35.5-45.6) % RDW (13.2-15.2) % Plt Count (140-440) K/mm3 Seg Neuts % (Manual) (40.0-70.0) % Lymphocytes % (Manual) (13.4-35.0) % Monocytes % (Manual) (0.0-7.3) % Nucleated RBC % (0.0-0.9) % Lymphocytes # (Manual) (1.2-5.4) K/mm3 POC ABG pH (7.35-7.45) ABG pH (7.350-7.450) pH Units ABG pO2 (80.0-90.0) mm Hg ABG Base Excess (-2.0-3.0) mmol/L Potassium (3.6-5.0) mmol/L Chloride (98-107) mmol/L Carbon Dioxide (22-30) mmol/L Glucose (75-100) mg/dL POC Glucose (70-105) Calcium (8.4-10.2) mg/dL C-Reactive Protein 7.20 H (0.00-1.30) mg/dL
[2017-01-23] MEDS ORDERED: PANCREAZE DR 10,500 UNIT FEEDTUBE PRN (17:15)
[2017-01-23] MEDS ORDERED: SIMPLE SYRUP FEEDTUBE PRN ×2 (17:15)
[2017-01-23] MEDS ORDERED: SODIUM BICARBONATE FEEDTUBE PRN (17:15)
[2017-01-23] MEDS: PLAVIX PO SCH (17:45)
[2017-01-23] MEDS: APRESOLINE IV PRN (17:45)
[2017-01-23] MEDS: D5/0.45NS 1,000 ML IV SCH (17:46)
[2017-01-23] MEDS ORDERED: BRIMONIDINE TART OS SCH (20:00)
[2017-01-23] MEDS ORDERED: BRINZOLAMIDE OS SCH (20:00)
[2017-01-23] MEDS ORDERED: NON-FORMULARY (Bimatoprost [Lumigan 0.01%] 1 DROP) OU SCH (22:00)
[2017-01-23] MEDS: COREG PO SCH (22:39)
[2017-01-23] MEDS: ZOCOR PO SCH (22:39)
[2017-01-23] MEDS ORDERED: SODIUM BICARBONATE IV ONE (23:21)
[2017-01-23] MEDS ORDERED: D50W (25GM) Syringe IV ONE (23:21)
[2017-01-23] MEDS ORDERED: KIONEX PO PRN (23:21)
[2017-01-24] MEDS ORDERED: KIONEX PO ONE (00:18)
[2017-01-24] MEDS: KEPPRA 1,000 MG in NACL 0.9% 100 ML IV SCH ×2 (00:41→13:58)
[2017-01-24] MEDS: PROTONIX IV SCH ×2 (00:42→11:01)
[2017-01-24] MEDS: DUONEB *Not for PRN Use IH SCH ×4 (02:16→19:54)
[2017-01-24 06:01] LABS: Basophils % (Auto) 0.7 % (0.0-1.8); Eosinophils % (Auto) 0.8 % (0.0-4.3); Hematocrit 41.8 % (35.5-45.6); Mean Corpuscular HGB Conc 34 % (32-34); Mean Corpuscular Hemoglobin 31 pg (28-32); Mean Corpuscular Volume 93 fl (84-94); Platelet Count 110 K/mm3 (140-440); Red Blood Count 4.47 M/mm3 (3.65-5.03); Red Cell Distribution Width 13.5 % (13.2-15.2); White Blood Count 8.4 K/mm3 (4.5-11.0)
[2017-01-24 06:28] LABS: Alanine Aminotransferase 12 units/L (7-56); Albumin 2.8 g/dL (3.9-5); Albumin/Globulin Ratio 0.8 %; Alkaline Phosphatase 37 units/L (35-129); Anion Gap 15 mmol/L; BUN/Creatinine Ratio 15; Blood Urea Nitrogen 15 mg/dL (9-20); Calcium 7.9 mg/dL (8.4-10.2); Carbon Dioxide 24 mmol/L (22-30); Chloride 108.2 mmol/L (98-107); Glucose 119 mg/dL (75-100); Potassium 4.1 mmol/L (3.6-5.0); Sodium 143 mmol/L (137-145); Total Protein 6.3 g/dL (6.3-8.2)
[2017-01-24] MEDS: PILOCARPINE 1% OU SCH ×3 (08:00→20:18)
[2017-01-24] MEDS: APRESOLINE IV PRN (09:48)
[2017-01-24] MEDS: PLAVIX PO SCH (09:50)
[2017-01-24] MEDS: COREG PO SCH ×2 (09:50→23:12)
[2017-01-24] MEDS: D5/0.45NS 1,000 ML IV SCH (10:07)
[2017-01-24] MEDS ORDERED: SIMPLE SYRUP FEEDTUBE PRN ×2 (10:53)
[2017-01-24] MEDS ORDERED: PANCREAZE DR 10,500 UNIT FEEDTUBE PRN (10:53)
[2017-01-24] MEDS ORDERED: SODIUM BICARBONATE FEEDTUBE PRN (10:53)
[2017-01-24] MEDS ORDERED: PERCOCET 5/325 PO PRN (10:56)
[2017-01-24] MEDS ORDERED: ZOFRAN IV PRN (10:56)
--- NOTE | 2017-01-24 11:00 | Progress Note ---
Assessment and Plan Acute Hypoxemic Respiratory Failure on NIV Inadvertent extubation Seizures Morbid Obesity Acute Encephalopathy SIRS ARTURO NSTEMI s/p AVR with bioprothetic Valve (Had extensive discussion with his son; he does not think the family / patient will want intubation / resuscitation but will talk to them first; in meantime he wants all other aggressive measures done) (per daughter not too far from baseline) - Change BIPAP to scheduled qhs - repeat ABG prn at this point - stop scopolamine as secretions better controlled (to reduce any anticholinergic delirium component) - continue supplemental oxygen to keep sats > 94% - continue enteral nutrition - change bronchodilators to prn - continue empiric Keppra and follow EEG / neurology recommendations - seen by cardiology and recommendations reviewed - (ASA, statins and B-blockers ) - continue empiric AB's and follow cultures (NGTD) - follow I's and O's / electrolytes and correct as necessary - continue SSI for glycemic control ....will re-evaluate in am and prn ....OK to transfer to telemetry at this point Subjective Date of service: 01/24/17 Principal diagnosis: Complex seizures, Acute Resp Failure on MVS; Acute Encephalopathy Interval history: Patient is seen today for: Acute Hypoxemic Respiratory Failure and Acute encephalopathy Seen and examined at bedside; 24hour events reviewed; nursing and respiratory care staff consulted; no adverse overnight events reported to me; off BIPAP but still mildly labored breathing; more alert; daughter in room; No N/V/F/C; on 40 % aerosol face mask; moves all extremities responds appropriately and no repeat seizures Objective Vital Signs - 12hr 01/23/17 01/23/17 01/23/17 23:10 23:20 23:30 Temperature Pulse Rate 87 82 84 Pulse Rate [ Anterior Bilateral Throughout] Pulse Rate [ Apical] Respiratory 15 13 15 Rate Respiratory Rate [Anterior Bilateral Throughout] Blood Pressure 167/87 167/87 174/81 O2 Sat by Pulse 100 100 99 Oximetry 01/23/17 01/23/17 01/23/17 23:40 23:50 23:52 Temperature Pulse Rate 85 87 86 Pulse Rate [ Anterior Bilateral Throughout] Pulse Rate [ Apical] Respiratory 17 24 23 Rate Respiratory Rate [Anterior Bilateral Throughout] Blood Pressure 174/81 174/81 167/87 O2 Sat by Pulse 98 99 100 Oximetry 01/24/17 01/24/17 01/24/17 00:00 00:10 00:20 Temperature 98.8 F Pulse Rate 86 87 85 Pulse Rate [ Anterior Bilateral Throughout] Pulse Rate [ Apical] Respiratory 22 22 16 Rate Respiratory Rate [Anterior Bilateral Throughout] Blood Pressure 175/94 175/94 175/94 O2 Sat by Pulse 100 99 100 Oximetry 01/24/17 01/24/17 01/24/17 00:30 00:40 00:50 Temperature Pulse Rate 85 90 91 H Pulse Rate [ Anterior Bilateral Throughout] Pulse Rate [ Apical] Respiratory 19 20 15 Rate Respiratory Rate [Anterior Bilateral Throughout] Blood Pressure 163/91 163/91 163/91 O2 Sat by Pulse 100 99 99 Oximetry 01/24/17 01/24/17 01/24/17 00:51 01:00 01:10 Temperature Pulse Rate 93 H 93 H Pulse Rate [ Anterior Bilateral Throughout] Pulse Rate [ 74 Apical] Respiratory 17 20 18 Rate Respiratory Rate [Anterior Bilateral Throughout] Blood Pressure 168/92 168/92 O2 Sat by Pulse 98 100 99 Oximetry 01/24/17 01/24/17 01/24/17 01:20 01:30 01:40 Temperature Pulse Rate 93 H 90 90 Pulse Rate [ Anterior Bilateral Throughout] Pulse Rate [ Apical] Respiratory 20 19 Rate Respiratory Rate [Anterior Bilateral Throughout] Blood Pressure 168/92 137/69 137/69 O2 Sat by Pulse 99 98 96 Oximetry 01/24/17 01/24/17 01/24/17 01:50 02:00 02:10 Temperature Pulse Rate 93 H 89 86 Pulse Rate [ Anterior Bilateral Throughout] Pulse Rate [ Apical] Respiratory 22 19 20 Rate Respiratory Rate [Anterior Bilateral Throughout] Blood Pressure 137/69 147/77 147/77 O2 Sat by Pulse 94 97 97 Oximetry 01/24/17 01/24/17 01/24/17 02:16 02:20 02:25 Temperature Pulse Rate 87 Pulse Rate [ 86 85 Anterior Bilateral Throughout] Pulse Rate [ Apical] Respiratory 22 Rate Respiratory 21 21 Rate [Anterior Bilateral Throughout] Blood Pressure 147/77 O2 Sat by Pulse 96 Oximetry 01/24/17 01/24/17 01/24/17 02:30 02:40 02:50 Temperature Pulse Rate 82 90 83 Pulse Rate [ Anterior Bilateral Throughout] Pulse Rate [ Apical] Respiratory 20 17 18 Rate Respiratory Rate [Anterior Bilateral Throughout] Blood Pressure 139/81 139/81 139/81 O2 Sat by Pulse 100 98 97 Oximetry 01/24/17 01/24/17 01/24/17 03:00 03:10 03:20 Temperature Pulse Rate 80 83 81 Pulse Rate [ Anterior Bilateral Throughout] Pulse Rate [ Apical] Respiratory 20 20 16 Rate Respiratory Rate [Anterior Bilateral Throughout] Blood Pressure 143/77 143/77 143/77 O2 Sat by Pulse 97 94 98 Oximetry 01/24/17 01/24/17 01/24/17 03:30 03:40 03:50 Temperature Pulse Rate 75 77 Pulse Rate [ Anterior Bilateral Throughout] Pulse Rate [ Apical] Respiratory 20 15 Rate Respiratory Rate [Anterior Bilateral Throughout] Blood Pressure 146/82 146/82 146/82 O2 Sat by Pulse 98 97 98 Oximetry 01/24/17 01/24/17 01/24/17 03:57 04:00 04:04 Temperature 99.6 F Pulse Rate 76 78 Pulse Rate [ Anterior Bilateral Throughout] Pulse Rate [ Apical] Respiratory 22 22 Rate Respiratory Rate [Anterior Bilateral Throughout] Blood Pressure 132/84 147/82 O2 Sat by Pulse 97 97 Oximetry 01/24/17 01/24/17 01/24/17 04:10 04:20 04:30 Temperature Pulse Rate 78 77 79 Pulse Rate [ Anterior Bilateral Throughout] Pulse Rate [ Apical] Respiratory 15 20 21 Rate Respiratory Rate [Anterior Bilateral Throughout] Blood Pressure 146/82 146/82 144/87 O2 Sat by Pulse 99 99 98 Oximetry 01/24/17 01/24/17 01/24/17 04:40 04:50 04:51 Temperature Pulse Rate 79 79 Pulse Rate [ Anterior Bilateral Throughout] Pulse Rate [ 82 Apical] Respiratory 20 20 18 Rate Respiratory Rate [Anterior Bilateral Throughout] Blood Pressure 144/87 144/87 O2 Sat by Pulse 98 98 99 Oximetry 01/24/17 01/24/17 01/24/17 05:00 05:10 05:20 Temperature Pulse Rate 80 79 77 Pulse Rate [ Anterior Bilateral Throughout] Pulse Rate [ Apical] Respiratory 20 19 16 Rate Respiratory Rate [Anterior Bilateral Throughout] Blood Pressure 137/77 137/77 137/77 O2 Sat by Pulse 98 96 98 Oximetry 01/24/17 01/24/17 01/24/17 05:30 05:40 05:50 Temperature Pulse Rate 79 77 81 Pulse Rate [ Anterior Bilateral Throughout] Pulse Rate [ Apical] Respiratory 13 14 13 Rate Respiratory Rate [Anterior Bilateral Throughout] Blood Pressure 137/77 163/92 137/77 O2 Sat by Pulse 98 99 99 Oximetry 01/24/17 01/24/17 01/24/17 06:00 06:10 07:39 Temperature Pulse Rate 79 81 Pulse Rate [ 81 Anterior Bilateral Throughout] Pulse Rate [ Apical] Respiratory 15 20 Rate Respiratory 20 Rate [Anterior Bilateral Throughout] Blood Pressure 165/92 165/92 O2 Sat by Pulse 99 97 Oximetry 01/24/17 01/24/17 01/24/17 07:40 08:00 09:30 Temperature 98.7 F Pulse Rate 81 Pulse Rate [ Anterior Bilateral Throughout] Pulse Rate [ Apical] Respiratory 20 Rate Respiratory Rate [Anterior Bilateral Throughout] Blood Pressure 145/78 O2 Sat by Pulse 99 100 Oximetry 01/24/17 01/24/17 09:48 09:50 Temperature Pulse Rate 85 84 Pulse Rate [ Anterior Bilateral Throughout] Pulse Rate [ Apical] Respiratory Rate Respiratory Rate [Anterior Bilateral Throughout] Blood Pressure 177/92 177/92 O2 Sat by Pulse Oximetry Constitutional: appears uncomfortable, other (somnolent but per daughter not far from baseline) Eyes: non-icteric, other (PERRL, EOMI) ENT: oropharynx moist Neck: supple, no lymphadenopathy, no JVD, other (no thyromegaly) Effort: mildly labored Ascultation: Bilateral: diminished breath sounds, rales (scant in bases) Percussion: Bilateral: not dull Cardiovascular: regular rate and rhythm (S1,S2, systolic murmur), other (No rubs or murmurs) Gastrointestinal: normoactive bowel sounds, non-tender, non-distended (obese), other (no HSM) Integumentary: other (stasis dermatitis bilaterally) Extremities: no cyanosis, no edema, pulses normal, no ischemia or petechiae Neurologic: non-focal exam, pupils equal and round, motor strength normal and, other (improved insight) Psychiatric: other (flat affect) CBC and BMP: 01/24/17 05:45 01/24/17 05:45 ABG, PT/INR, D-dimer: ABG POC ABG pH 7.286 (7.35-7.45) L 01/23/17 09:22 ABG pH 7.317 pH Units (7.350-7.450) L 01/23/17 15:56 POC ABG pCO2 42.2 (35-45) 01/23/17 09:22 ABG pCO2 45.5 mm Hg 01/23/17 15:56 POC ABG pO2 89 (80-105) 01/23/17 09:22 ABG pO2 115.3 mm Hg (80.0-90.0) H 01/23/17 15:56 POC ABG HCO3 20.1 01/23/17 09:22 POC ABG Total CO2 21 01/23/17 09:22 POC ABG O2 Sat 96 01/23/17 09:22 ABG O2 Saturation 97.9 % (95.0-99.0) 01/23/17 15:56 PT/INR, D-dimer PT 13.4 Sec. (12.2-14.9) 01/18/17 23:10 INR 0.97 (0.87-1.13) 01/18/17 23:10 Abnormal lab findings: Abnormal Labs 01/19/17 01/19/17 01/19/17 03:45 05:46 07:49 RBC Hgb Hct MCV RDW Plt Count [place] % (Auto) [place] # Seg Neutrophils % Seg Neuts % (Manual) Lymphocytes % (Manual) Monocytes % (Manual) Nucleated RBC % Lymphocytes # (Manual) POC ABG pH 7.295 L ABG pH POC ABG pCO2 46.4 H POC ABG pO2 231 H ABG pO2 ABG Base Excess Sodium Potassium Chloride Carbon Dioxide BUN Creatinine Glucose POC Glucose 113 H Calcium Total Creatine Kinase Troponin T 0.046 H D C-Reactive Protein Albumin HDL Cholesterol 64 H 01/19/17 01/20/17 01/20/17 23:39 03:47 03:47 RBC 5.11 H Hgb 16.1 H Hct 48.6 H MCV 95 H RDW Plt Count 110 L [place] % (Auto) 14.6 H [place] # 1.3 H Seg Neutrophils % Seg Neuts % (Manual) Lymphocytes % (Manual) Monocytes % (Manual) Nucleated RBC % Lymphocytes # (Manual) POC ABG pH ABG pH POC ABG pCO2 POC ABG pO2 ABG pO2 ABG Base Excess Sodium 136 L Potassium Chloride Carbon Dioxide 20 L BUN Creatinine 2.0 H D Glucose POC Glucose 122 H Calcium 8.1 L Total Creatine Kinase Troponin T C-Reactive Protein Albumin HDL Cholesterol 01/20/17 01/20/17 01/20/17 05:18 14:59 22:09 RBC Hgb Hct MCV RDW Plt Count [place] % (Auto) [place] # Seg Neutrophils % Seg Neuts % (Manual) Lymphocytes % (Manual) Monocytes % (Manual) Nucleated RBC % Lymphocytes # (Manual) POC ABG pH ABG pH POC ABG pCO2 30.4 L POC ABG pO2 ABG pO2 ABG Base Excess Sodium Potassium Chloride Carbon Dioxide BUN Creatinine Glucose POC Glucose 144 H Calcium Total Creatine Kinase 257 H Troponin T C-Reactive Protein Albumin HDL Cholesterol 01/21/17 01/21/17 01/21/17 05:54 14:01 14:01 RBC Hgb Hct MCV 95 H RDW Plt Count 106 L [place] % (Auto) [place] # Seg Neutrophils % Seg Neuts % (Manual) Lymphocytes % (Manual) Monocytes % (Manual) Nucleated RBC % Lymphocytes # (Manual) POC ABG pH ABG pH POC ABG pCO2 29.0 L POC ABG pO2 74 L ABG pO2 ABG Base Excess Sodium Potassium Chloride Carbon Dioxide 18 L BUN 22 H Creatinine Glucose POC Glucose Calcium 7.5 L Total Creatine Kinase Troponin T C-Reactive Protein Albumin HDL Cholesterol 01/22/17 01/22/17 01/22/17 08:47 09:24 09:24 RBC Hgb Hct MCV 95 H RDW Plt Count 102 L [place] % (Auto) [place] # Seg Neutrophils % Seg Neuts % (Manual) Lymphocytes % (Manual) Monocytes % (Manual) Nucleated RBC % Lymphocytes # (Manual) POC ABG pH ABG pH POC ABG pCO2 POC ABG pO2 ABG pO2 ABG Base Excess Sodium Potassium Chloride 109.5 H Carbon Dioxide 20 L BUN Creatinine Glucose 120 H POC Glucose 112 H Calcium 7.8 L Total Creatine Kinase Troponin T C-Reactive Protein Albumin HDL Cholesterol 01/22/17 01/23/17 01/23/17 17:34 09:22 12:22 RBC Hgb Hct MCV RDW Plt Count [place] % (Auto) [place] # Seg Neutrophils % Seg Neuts % (Manual) Lymphocytes % (Manual) Monocytes % (Manual) Nucleated RBC % Lymphocytes # (Manual) POC ABG pH 7.286 L ABG pH POC ABG pCO2 POC ABG pO2 ABG pO2 ABG Base Excess Sodium Potassium Chloride Carbon Dioxide BUN Creatinine Glucose POC Glucose 110 H 127 H Calcium Total Creatine Kinase Troponin T C-Reactive Protein Albumin HDL Cholesterol 01/23/17 01/23/1717 15:07 15:07 15:56 RBC 5.98 H Hgb 18.4 H D Hct 56.0 H D MCV RDW 13.1 L Plt Count 79 L [place] % (Auto) [place] # Seg Neutrophils % Seg Neuts % (Manual) 80.0 H Lymphocytes % (Manual) 8.0 L Monocytes % (Manual) 9.0 H Nucleated RBC % 1.0 H Lymphocytes # (Manual) 0.7 L POC ABG pH ABG pH 7.317 L POC ABG pCO2 POC ABG pO2 ABG pO2 115.3 H ABG Base Excess -3.5 L Sodium Potassium 5.7 H D Chloride 109.7 H Carbon Dioxide 19 L BUN Creatinine Glucose 106 H POC Glucose Calcium 7.5 L Total Creatine Kinase Troponin T C-Reactive Protein Albumin HDL Cholesterol 01/23/17 01/23/17 01/24/17 16:12 23:46 05:37 RBC Hgb Hct MCV RDW Plt Count [place] % (Auto) [place] # Seg Neutrophils % Seg Neuts % (Manual) Lymphocytes % (Manual) Monocytes % (Manual) Nucleated RBC % Lymphocytes # (Manual) POC ABG pH ABG pH POC ABG pCO2 POC ABG pO2 ABG pO2 ABG Base Excess Sodium Potassium Chloride Carbon Dioxide BUN Creatinine Glucose POC Glucose 109 H 118 H Calcium Total Creatine Kinase Troponin T C-Reactive Protein 7.20 H Albumin HDL Cholesterol 01/24/17 01/24/17 05:45 05:45 RBC Hgb Hct MCV RDW Plt Count 110 L [place] % (Auto) 11.0 H [place] # 0.9 H Seg Neutrophils % 73.0 H Seg Neuts % (Manual) Lymphocytes % (Manual) Monocytes % (Manual) Nucleated RBC % Lymphocytes # (Manual) POC ABG pH ABG pH POC ABG pCO2 POC ABG pO2 ABG pO2 ABG Base Excess Sodium Potassium Chloride 108.2 H Carbon Dioxide BUN Creatinine Glucose 119 H POC Glucose Calcium 7.9 L Total Creatine Kinase Troponin T C-Reactive Protein Albumin 2.8 L HDL Cholesterol Chest x-ray: image reviewed Allied health notes reviewed: RT
[2017-01-24] MEDS ORDERED: LOPRESSOR IV PRN (12:41)
[2017-01-24] MEDS: DULCOLAX PR SCH (15:05)
--- NOTE | 2017-01-24 15:38 | XRay Report ---
FINAL REPORT EXAM: XR ABDOMEN 1V AP HISTORY: ABD PAIN TECHNIQUE: KUB view(s) of abdomen. PRIORS: 22 January 2017. FINDINGS: Thin caliber enteric tube again noted, with tip projected at EG junction level and may be advanced. Considerable gastric distention increased from comparison. Nonspecific bowel gas pattern without other features suggestive of mechanical obstruction. No apparent pneumoperitoneum. No abnormal calcifications. Osseous structures grossly unremarkable. IMPRESSION: 1. Enteric tube position as reported. 2. Nonspecific bowel gas pattern, which may represent gastroparesis or pylorospasm and adynamic ileus. Followup may be warranted.
--- NOTE | 2017-01-24 17:06 | Progress Note ---
Assessment and Plan / Abdominal pain - tolerating TF - will obtain abdominal xr /Acute eccephalopathy - likely postictal from seizure, also cannot r/o metabolic cause - improved /Acute respiratory failure - Self extubated on 01/22/17 - intubated in the ER following admission - pulmonary following - transitioned to nebulizer breathing treatment, supplemental oxygen to keep oxygen saturation greater than 92% with BiPAP - now off BiPAP, will transfer to telemetry /Complex seizure, CVA ruled out - head CT with NAF; carotid studies show <50% stenosis bilaterally - cont keppra iv, as needed ativan - MRI brain obtained showed no acute CVA - neurology consulted - conted on plavix, statin with Dobbhoff tube /SIRS - pt had tachycardia, tachypnea, elevated lactic acid following admission - could be reactive - will cover with Abx empirically until sepsis rulled out - Blood culture negative, sputum culture growing mixed respiratory joni, UA negative - We will await for final culture report /Hypertension, malignant on admission - monitor BP carefully - metoprolol iv as needed if SBP >160 - will cont coreg, plavix and statin ARTURO/ATN - monitor renal function, Cr trended down to normal - iv fluid, free h20 with TF - if cont to decline will consult renal] /hyperkalemia - resolved now, cont to monitor /Diabetes type 2 - SSI, monitor BG q6h /Elevated troponin - negative x 2 with minimal elevation of 3rd set; ECG with NAF; suspect secondary to seizure activity - cardiology following, Ef 55% on Echo /CAD s/p CABG - HIRSCH to LAD, saphenous graft to anterolateral obtuse margin (10/2012) - cont aspirin, statin /s/p AVR with bioprosthesis (10/2012) - no acute issue now, cardiology following /Morbid obesity - nutrition counselling when medically stable /Dvt Px - lovenox Brief History: The pt is an 86 YO male with a past medical history significant for severe aortic stenosis, s/p aortic valve replacement (bioprosthesic valve) and CAD s/p CABG x 2 (HIRSCH to LAD, saphenous graft to anterolateral obtuse margin) in 10/2012 at [place], AMI, hypertension, diabetes, mild COPD, HLP, morbid obesity brought to the ER by caregiver with possible stroke like symptom. Following arrival to ED, TPA was not given because there was concern for complex seizure. Pt was then witnessed to a have tonic-clonic seizure in the emergency room, with sonorous respiration, patient was then intubated in the emergency room. Patient was admitted to the intensive care unit, critical care is following the patient. Current Meds: Generic Name Dose Route Start Last Admin Trade Name Freq PRN Reason Stop Dose Admin Albuterol 2.5 mg 01/24/17 17:11 Proventil IH Q4HRT PRN Shortness Of Breath Albuterol/Ipratropium 1 ampul 01/24/17 02:00 01/25/17 08:02 Duoneb *Not For Prn Use* IH 1 ampul Q6HRT EARNEST Administration Lipase/Protease/Amylase 1 each 01/23/17 17:15 Talat Carrera 10,500 Unit FEEDTUBE PRN PRN For Clogged Feeding Tube Lipase/Protease/Amylase 1 each 01/24/17 10:53 Talat Carrera 10,500 Unit FEEDTUBE PRN PRN For Clogged Feeding Tube Bisacodyl 10 mg 01/24/17 15:00 01/25/17 11:34 Dulcolax AK Not Given QDAY EARNEST Carvedilol 6.25 mg 01/23/17 22:00 01/25/17 11:30 Coreg PO 6.25 mg BID EARNEST Administration Clopidogrel Bisulfate 75 mg 01/23/17 18:00 01/25/17 11:33 Plavix PO 75 mg QDAY EARNEST Administration Enoxaparin Sodium 40 mg 01/23/17 22:00 01/24/17 23:12 Lovenox SUB-Q 40 mg QDAY@2200 EARNEST Administration Dextrose/Sodium Chloride 1,000 mls @ 75 mls/hr 01/23/17 18:00 01/25/17 05:36 D5/0.45ns IV 75 mls/hr DIRECT EARNEST Administration Levetiracetam 1,000 mg/ Sodium 110 mls @ 400 mls/hr 01/24/17 00:00 01/25/17 01:51 Chloride IV 400 mls/hr Q12H EARNEST Administration Latanoprost 1 drops 01/23/17 18:00 01/24/17 18:25 Xalatan 0.005% OU 1 drops QPM EARNEST Administration Metoprolol Tartrate 5 mg 01/24/17 12:41 Lopressor IV Q6HR PRN Tachyarrhythmias Miscellaneous Medication 1 drops 01/23/17 20:00 01/24/17 20:18 Pilocarpine 1% (Nf) OU Not Given TID EARNEST Ondansetron HCl 4 mg 01/24/17 10:56 01/24/17 11:11 Zofran IV 4 mg Q4H PRN Administration Nausea And Vomiting Oxycodone/Acetaminophen 1 tab 01/24/17 10:56 01/24/17 11:11 Percocet 5/325 PO 1 tab Q4H PRN Administration Pain, Moderate (4-6) Pantoprazole Sodium 40 mg 01/23/17 23:24 01/25/17 11:31 Protonix IV 40 mg QDAY EARNEST Administration Simple Syrup 15 ml 01/23/17 17:15 Simple Syrup FEEDTUBE PRN PRN Hypoglycemia Simple Syrup 30 ml 01/23/17 17:15 Simple Syrup FEEDTUBE PRN PRN Hypoglycemia Simple Syrup 15 ml 01/24/17 10:53 Simple Syrup FEEDTUBE PRN PRN Hypoglycemia Simple Syrup 30 ml 01/24/17 10:53 Simple Syrup FEEDTUBE PRN PRN Hypoglycemia Simvastatin 40 mg 01/23/17 22:00 01/24/17 23:12 Zocor PO 40 mg QHS EARNEST Administration Sodium Bicarbonate 325 mg 01/23/17 17:15 Sodium Bicarbonate FEEDTUBE PRN PRN For Clogged Feeding Tube Sodium Bicarbonate 325 mg 01/24/17 10:53 Sodium Bicarbonate FEEDTUBE PRN PRN For Clogged Feeding Tube Sodium Polystyrene Sulfonate 15 gm 01/23/17 23:21 01/24/17 00:41 Kionex PO 15 gm Q6H PRN Administration Hyperkalemia Microbiology 01/19/17 20:38 Peripheral/Venous Blood Culture - Final NO GROWTH AFTER 5 DAYS 01/19/17 20:38 Peripheral/Venous Blood Culture - Final NO GROWTH AFTER 5 DAYS 01/19/17 03:45 Sputum - Endotracheal Wash Sputum Culture - Final Subjective Date of service: 01/24/17 Principal diagnosis: Complex seizures, Acute Resp Failure on MVS; Acute Encephalopathy Interval history: Patient seen and examined. pt on nasal mask today, off Bipap Discussed with patient's son at bedside pt c/o abdominal pain, but tolerating TF Objective - Exam Narrative Exam: GENERAL: well-developed obese -[place]ic male lying on bed HEENT: Normocephalic. Atraumatic. No conjunctival congestion or icterus. Patient has dry mucous membranes. on BiPAP, getting tube feeding with dobhoff NECK: Trachea midline. CHEST/LUNGS: Clear to auscultated bilaterally, No wheezes crackles or rhonchi. HEART/CARDIOVASCULAR: S1 and S2 positive. ABDOMEN: Abdomen is soft, nontender. Patient has normal bowel sounds. SKIN: There is no rash. Warm and dry. NEURO: follow minor command MUSkulosKELETAL: No joint effusion or tenderness. EXTRIMITY: No edema, no cyanosis or clubbing. PSYCH: no agitation. - Constitutional Vitals: Vital Signs - 12hr 01/24/17 01/24/17 01/24/17 05:10 05:20 05:30 Temperature Pulse Rate 79 77 79 Pulse Rate [ Anterior Bilateral Throughout] Respiratory 19 16 13 Rate Respiratory Rate [Anterior Bilateral Throughout] Blood Pressure 137/77 137/77 137/77 O2 Sat by Pulse 96 98 98 Oximetry 01/24/17 01/24/17 01/24/17 05:40 05:50 06:00 Temperature Pulse Rate 77 81 79 Pulse Rate [ Anterior Bilateral Throughout] Respiratory 14 13 15 Rate Respiratory Rate [Anterior Bilateral Throughout] Blood Pressure 163/92 137/77 165/92 O2 Sat by Pulse 99 99 99 Oximetry 01/24/17 01/24/17 01/24/17 06:10 06:20 06:30 Temperature Pulse Rate 81 79 79 Pulse Rate [ Anterior Bilateral Throughout] Respiratory 20 20 20 Rate Respiratory Rate [Anterior Bilateral Throughout] Blood Pressure 165/92 165/92 167/89 O2 Sat by Pulse 97 98 98 Oximetry 01/24/17 01/24/17 01/24/17 06:40 06:50 07:00 Temperature Pulse Rate 81 78 78 Pulse Rate [ Anterior Bilateral Throughout] Respiratory 20 20 23 Rate Respiratory Rate [Anterior Bilateral Throughout] Blood Pressure 167/89 165/92 182/88 O2 Sat by Pulse 97 98 99 Oximetry 01/24/17 01/24/17 01/24/17 07:10 07:20 07:30 Temperature Pulse Rate 79 77 80 Pulse Rate [ Anterior Bilateral Throughout] Respiratory 21 22 20 Rate Respiratory Rate [Anterior Bilateral Throughout] Blood Pressure 182/88 182/88 145/78 O2 Sat by Pulse 100 100 99 Oximetry 01/24/17 01/24/17 01/24/17 07:39 07:40 07:50 Temperature Pulse Rate 78 79 Pulse Rate [ 81 82 Anterior Bilateral Throughout] Respiratory 20 20 Rate Respiratory 20 20 Rate [Anterior Bilateral Throughout] Blood Pressure 145/78 145/78 O2 Sat by Pulse 99 100 Oximetry 01/24/17 01/24/17 01/24/17 08:00 08:10 08:20 Temperature 98.7 F Pulse Rate 79 78 80 Pulse Rate [ Anterior Bilateral Throughout] Respiratory 17 17 12 Rate Respiratory Rate [Anterior Bilateral Throughout] Blood Pressure 150/85 150/85 150/85 O2 Sat by Pulse 99 99 99 Oximetry 01/24/17 01/24/17 01/24/17 08:30 08:40 08:50 Temperature Pulse Rate 76 76 78 Pulse Rate [ Anterior Bilateral Throughout] Respiratory 13 13 11 L Rate Respiratory Rate [Anterior Bilateral Throughout] Blood Pressure 143/83 143/83 143/83 O2 Sat by Pulse 99 99 100 Oximetry 01/24/17 01/24/17 01/24/17 09:00 09:10 09:20 Temperature Pulse Rate 74 80 78 Pulse Rate [ Anterior Bilateral Throughout] Respiratory 16 14 21 Rate Respiratory Rate [Anterior Bilateral Throughout] Blood Pressure 143/83 163/123 163/123 O2 Sat by Pulse 99 Oximetry 01/24/17 01/24/17 01/24/17 09:30 09:40 09:48 Temperature Pulse Rate 79 81 85 Pulse Rate [ Anterior Bilateral Throughout] Respiratory 19 21 Rate Respiratory Rate [Anterior Bilateral Throughout] Blood Pressure 163/123 177/92 177/92 O2 Sat by Pulse 100 100 Oximetry 01/24/17 01/24/17 01/24/17 09:50 10:00 10:10 Temperature Pulse Rate 83 87 90 Pulse Rate [ Anterior Bilateral Throughout] Respiratory 24 23 23 Rate Respiratory Rate [Anterior Bilateral Throughout] Blood Pressure 177/92 151/78 151/78 O2 Sat by Pulse 100 100 Oximetry 01/24/17 01/24/17 01/24/17 10:20 10:30 10:40 Temperature Pulse Rate 93 H 94 H 98 H Pulse Rate [ Anterior Bilateral Throughout] Respiratory 24 24 17 Rate Respiratory Rate [Anterior Bilateral Throughout] Blood Pressure 151/78 141/73 141/73 O2 Sat by Pulse Oximetry 01/24/17 01/24/17 01/24/17 10:50 11:00 11:10 Temperature Pulse Rate 100 H 100 H 105 H Pulse Rate [ Anterior Bilateral Throughout] Respiratory 12 21 24 Rate Respiratory Rate [Anterior Bilateral Throughout] Blood Pressure 141/73 132/75 132/75 O2 Sat by Pulse 99 99 99 Oximetry 01/24/17 01/24/17 01/24/17 11:20 11:30 11:40 Temperature Pulse Rate 102 H 111 H 112 H Pulse Rate [ Anterior Bilateral Throughout] Respiratory 26 H 24 26 H Rate Respiratory Rate [Anterior Bilateral Throughout] Blood Pressure 132/75 133/69 133/69 O2 Sat by Pulse 98 98 98 Oximetry 01/24/17 01/24/17 01/24/17 11:50 11:58 12:00 Temperature 98.7 F Pulse Rate 109 H 99 H Pulse Rate [ Anterior Bilateral Throughout] Respiratory 23 22 Rate Respiratory Rate [Anterior Bilateral Throughout] Blood Pressure 133/69 131/65 O2 Sat by Pulse 97 98 Oximetry - Labs CBC & Chem 7: 01/24/17 05:45 01/24/17 05:45 Labs: Abnormal lab results 01/23/17 01/24/17 01/24/17 Range/Units 23:46 05:37 05:45 Plt Count 110 L (140-440) K/mm3 P[place] % (Auto) 11.0 H (0.0-7.3) % Pinal # 0.9 H (0.0-0.8) K/mm3 Seg Neutrophils % 73.0 H (40.0-70.0) % Chloride (98-107) mmol/L Glucose (75-100) mg/dL POC Glucose 109 H 118 H (70-105) Calcium (8.4-10.2) mg/dL Albumin (3.9-5) g/dL 01/24/17 Range/Units 05:45 Plt Count (140-440) K/mm3 P[place] % (Auto) (0.0-7.3) % Pinal # (0.0-0.8) K/mm3 Seg Neutrophils % (40.0-70.0) % Chloride 108.2 H (98-107) mmol/L Glucose 119 H (75-100) mg/dL POC Glucose (70-105) Calcium 7.9 L (8.4-10.2) mg/dL Albumin 2.8 L (3.9-5) g/dL
[2017-01-24] MEDS ORDERED: PROVENTIL IH PRN (17:11)
[2017-01-24] MEDS: XALATAN 0.005% OU SCH ×2 (18:05→18:25)
[2017-01-24] MEDS: LOVENOX SUB-Q SCH (23:12)
[2017-01-24] MEDS: ZOCOR PO SCH (23:12)
[2017-01-25] MEDS: KEPPRA 1,000 MG in NACL 0.9% 100 ML IV SCH ×2 (01:51→12:29)
[2017-01-25] MEDS: DUONEB *Not for PRN Use IH SCH ×4 (01:59→19:49)
[2017-01-25] MEDS: D5/0.45NS 1,000 ML IV SCH (05:36)
[2017-01-25] MEDS: COREG PO SCH ×2 (11:30→23:24)
[2017-01-25] MEDS: PROTONIX IV SCH (11:31)
[2017-01-25] MEDS: PLAVIX PO SCH (11:33)
[2017-01-25] MEDS: DULCOLAX PR SCH (11:34)
--- NOTE | 2017-01-25 13:22 | Consultation ---
History of Present Illness - Reason for Consult Consult date: 01/25/17 seizure - History of Present Illness these seizures have been witnessed previously and spoke with carol this seizure was not ppt'ed by elba known event plan to check EEG and look into dosing of meds exam shows he is alert and seizure free at this point in time Thanks Past History Past Medical History: CAD, COPD, diabetes, hypertension, hyperlipidemia, other ( ) Past Surgical History: valve replacement (aortic), CABG Medications and Allergies Allergies Allergy/AdvReac Type Severity Reaction Status Date / Time No Known Allergies Allergy Verified 01/18/17 23:21 Home Medications Medication Instructions Recorded Confirmed Last Taken Type Carvedilol [Coreg] 6.25 mg PO BID 11/03/16 01/19/17 1 Day Ago History Clopidogrel [Plavix] 75 mg PO QDAY 11/03/16 01/19/17 1 Day Ago History Simvastatin [Zocor TAB] 40 mg PO QHS 11/03/16 01/19/17 1 Day Ago History Bimatoprost [Lumigan 0.01%] 1 drop OU QHS 01/19/17 01/19/17 Unknown History Brinzolamide/Brimonidine Tart 8 ml OS TID 01/19/17 01/19/17 Unknown History [Simbrinza 1%-0.2% Eye Drops] Glimepiride [Amaryl] 1 mg PO QAM 01/19/17 01/19/17 Unknown History Pilocarpine 1% (Nf) [Isopto 1 drops OU TID 01/19/17 01/19/17 Unknown History Carpine (Nf)] Active Meds: Active Medications Albuterol (Proventil) 2.5 mg IH Q4HRT PRN PRN Reason: Shortness Of Breath Albuterol/Ipratropium (Duoneb *Not For Prn Use*) 1 ampul IH Q6HRT EARNEST Last Admin: 01/25/17 08:02 Dose: 1 ampul Lipase/Protease/Amylase (Talat Carrera 10,500 Unit) 1 each FEEDTUBE PRN PRN PRN Reason: For Clogged Feeding Tube Lipase/Protease/Amylase (Talat Carrera 10,500 Unit) 1 each FEEDTUBE PRN PRN PRN Reason: For Clogged Feeding Tube Bisacodyl (Dulcolax) 10 mg MO QDAY [facility] Last Admin: 01/25/17 11:34 Dose: Not Given Carvedilol (Coreg) 6.25 mg PO BID [facility] Last Admin: 01/25/17 11:30 Dose: 6.25 mg Clopidogrel Bisulfate (Plavix) 75 mg PO QDAY [facility] Last Admin: 01/25/17 11:33 Dose: 75 mg Enoxaparin Sodium (Lovenox) 40 mg SUB-Q QDAY@2200 [facility] Last Admin: 01/24/17 23:12 Dose: 40 mg Dextrose/Sodium Chloride (D5/0.45ns) 1,000 mls @ 75 mls/hr IV DIRECT [facility] Last Admin: 01/25/17 05:36 Dose: 75 mls/hr Levetiracetam 1,000 mg/ Sodium (Chloride) 110 mls @ 400 mls/hr IV Q12H [facility] Last Admin: 01/25/17 01:51 Dose: 400 mls/hr Latanoprost (Xalatan 0.005%) 1 drops OU QPM [facility] Last Admin: 01/24/17 18:25 Dose: 1 drops Metoprolol Tartrate (Lopressor) 5 mg IV Q6HR PRN PRN Reason: Tachyarrhythmias Miscellaneous Medication (Pilocarpine 1% (Nf)) 1 drops OU TID [facility] Last Admin: 01/24/17 20:18 Dose: Not Given Ondansetron HCl (Zofran) 4 mg IV Q4H PRN PRN Reason: Nausea And Vomiting Last Admin: 01/24/17 11:11 Dose: 4 mg Oxycodone/Acetaminophen (Percocet 5/325) 1 tab PO Q4H PRN PRN Reason: Pain, Moderate (4-6) Last Admin: 01/24/17 11:11 Dose: 1 tab Pantoprazole Sodium (Protonix) 40 mg IV QDAY [facility] Last Admin: 01/25/17 11:31 Dose: 40 mg Simple Syrup (Simple Syrup) 15 ml FEEDTUBE PRN PRN PRN Reason: Hypoglycemia Simple Syrup (Simple Syrup) 30 ml FEEDTUBE PRN PRN PRN Reason: Hypoglycemia Simple Syrup (Simple Syrup) 15 ml FEEDTUBE PRN PRN PRN Reason: Hypoglycemia Simple Syrup (Simple Syrup) 30 ml FEEDTUBE PRN PRN PRN Reason: Hypoglycemia Simvastatin (Zocor) 40 mg PO QHS EARNEST Last Admin: 01/24/17 23:12 Dose: 40 mg Sodium Bicarbonate (Sodium Bicarbonate) 325 mg FEEDTUBE PRN PRN PRN Reason: For Clogged Feeding Tube Sodium Bicarbonate (Sodium Bicarbonate) 325 mg FEEDTUBE PRN PRN PRN Reason: For Clogged Feeding Tube Sodium Polystyrene Sulfonate (Kionex) 15 gm PO Q6H PRN PRN Reason: Hyperkalemia Last Admin: 01/24/17 00:41 Dose: 15 gm Exam - Constitutional Vitals: Temp Pulse Resp BP Pulse Ox 98.1 F 98 H 20 159/87 100 01/25/17 04:55 01/25/17 11:30 01/25/17 08:20 01/25/17 11:30 01/25/17 08:08 Results - Labs CBC & Chem 7: 01/24/17 05:45 01/24/17 05:45 Labs: Abnormal lab results 01/24/17 01/24/17 01/24/17 Range/Units 11:49 17:45 23:29 POC Glucose 170 H 141 H 154 H (70-105)
--- NOTE | 2017-01-25 13:35 | XRay Report ---
ABDOMEN RADIOGRAPHS INDICATION: Possible ileus. COMPARISON: Yesterday. FINDINGS: Frontal abdominal radiographs, 12:30 PM, 01/25/2017 again demonstrate moderate gaseous gastric distention. Upper abdomen, including the dobbhoff tube tip previously in the proximal stomach now not imaged, as also the lung bases. Nonobstructive remainder bowel gas/colonic pattern. Stable bones, including mild, age-appropriate degenerative changes. CONCLUSION: Possible gastric outlet obstruction radiographically, as described. Please correlate. Thank you for the opportunity to participate in this patient's care.
[2017-01-25] MEDS: PILOCARPINE 1% OU SCH ×2 (15:29→19:56)
--- NOTE | 2017-01-25 17:03 | Consultation ---
History of Present Illness Consult date: 01/25/17 Reason for consult: other (distended stomach, ?obstruction) Requesting physician: ULI RUVALCABA - History of present illness History of present illness: 86-year-old male with a past medical history of severe aortic stenosis, s/p aortic valve replacement (bioprosthesic valve), CAD s/p CABG x 2 (HIRSCH to LAD, saphenous graft to anterolateral obtuse margin) in 10/2012 at [place], HTN, DM, COPD emergency room caregiver for evaluation of possible stroke. The patient is an extremely poor historian and all of the history is obtained from the chart. According to the chart, when the patient arrived to the emergency room he was witnessed seizure and was intubated for respiratory distress. The patient was maintained in the ICU where he self extubated. He has been on BiPAP downgraded telemetry. The patient had a Dobbhoff tube and was tolerating tube feeds without difficulty. He had a bowel movement today. A swallowing evaluation was performed today which the patient passed. The patient removed with a Dobbhoff at 10 AM today. The patient has been followed with abdominal x- rays which showed a distended stomach. Despite this he has been tolerating tube feeds. X-ray today also showed a distended stomach and therefore surgery consultation. He has no complaints. Past History Past Medical History: CAD, COPD, diabetes, hypertension, hyperlipidemia, other ( ) Past Surgical History: valve replacement (aortic), CABG Medications and Allergies Allergies Allergy/AdvReac Type Severity Reaction Status Date / Time No Known Allergies Allergy Verified 01/18/17 23:21 Home Medications Medication Instructions Recorded Confirmed Last Taken Type Carvedilol [Coreg] 6.25 mg PO BID 11/03/16 01/19/17 1 Day Ago History Clopidogrel [Plavix] 75 mg PO QDAY 11/03/16 01/19/17 1 Day Ago History Simvastatin [Zocor TAB] 40 mg PO QHS 11/03/16 01/19/17 1 Day Ago History Bimatoprost [Lumigan 0.01%] 1 drop OU QHS 01/19/17 01/19/17 Unknown History Brinzolamide/Brimonidine Tart 8 ml OS TID 01/19/17 01/19/17 Unknown History [Simbrinza 1%-0.2% Eye Drops] Glimepiride [Amaryl] 1 mg PO QAM 01/19/17 01/19/17 Unknown History Pilocarpine 1% (Nf) [Isopto 1 drops OU TID 01/19/17 01/19/17 Unknown History Carpine (Nf)] Active Meds: Active Medications Albuterol (Proventil) 2.5 mg IH Q4HRT PRN PRN Reason: Shortness Of Breath Albuterol/Ipratropium (Duoneb *Not For Prn Use*) 1 ampul IH Q6HRT [facility] Last Admin: 01/25/17 13:38 Dose: 1 ampul Lipase/Protease/Amylase (Pancreaze 10,500 Unit) 1 each FEEDTUBE PRN PRN PRN Reason: For Clogged Feeding Tube Lipase/Protease/Amylase (Pancreaze Dr 10,500 Unit) 1 each FEEDTUBE PRN PRN PRN Reason: For Clogged Feeding Tube Bisacodyl (Dulcolax) 10 mg MI QDAY [facility] Last Admin: 01/25/17 11:34 Dose: Not Given Carvedilol (Coreg) 6.25 mg PO BID [facility] Last Admin: 01/25/17 11:30 Dose: 6.25 mg Clopidogrel Bisulfate (Plavix) 75 mg PO QDAY [facility] Last Admin: 01/25/17 11:33 Dose: 75 mg Enoxaparin Sodium (Lovenox) 40 mg SUB-Q QDAY@2200 [facility] Last Admin: 01/24/17 23:12 Dose: 40 mg Dextrose/Sodium Chloride (D5/0.45ns) 1,000 mls @ 75 mls/hr IV DIRECT [facility] Last Admin: 01/25/17 05:36 Dose: 75 mls/hr Levetiracetam 1,000 mg/ Sodium (Chloride) 110 mls @ 400 mls/hr IV Q12H [facility] Last Admin: 01/25/17 12:29 Dose: 400 mls/hr Latanoprost (Xalatan 0.005%) 1 drops OU QPM [facility] Last Admin: 01/24/17 18:25 Dose: 1 drops Metoprolol Tartrate (Lopressor) 5 mg IV Q6HR PRN PRN Reason: Tachyarrhythmias Miscellaneous Medication (Pilocarpine 1% (Nf)) 1 drops OU TID [facility] Last Admin: 01/25/17 15:29 Dose: Not Given Ondansetron HCl (Zofran) 4 mg IV Q4H PRN PRN Reason: Nausea And Vomiting Last Admin: 01/24/17 11:11 Dose: 4 mg Oxycodone/Acetaminophen (Percocet 5/325) 1 tab PO Q4H PRN PRN Reason: Pain, Moderate (4-6) Last Admin: 01/24/17 11:11 Dose: 1 tab Pantoprazole Sodium (Protonix) 40 mg IV QDAY [facility] Last Admin: 01/25/17 11:31 Dose: 40 mg Simple Syrup (Simple Syrup) 15 ml FEEDTUBE PRN PRN PRN Reason: Hypoglycemia Simple Syrup (Simple Syrup) 30 ml FEEDTUBE PRN PRN PRN Reason: Hypoglycemia Simple Syrup (Simple Syrup) 15 ml FEEDTUBE PRN PRN PRN Reason: Hypoglycemia Simple Syrup (Simple Syrup) 30 ml FEEDTUBE PRN PRN PRN Reason: Hypoglycemia Simvastatin (Zocor) 40 mg PO QHS [facility] Last Admin: 01/24/17 23:12 Dose: 40 mg Sodium Bicarbonate (Sodium Bicarbonate) 325 mg FEEDTUBE PRN PRN PRN Reason: For Clogged Feeding Tube Sodium Bicarbonate (Sodium Bicarbonate) 325 mg FEEDTUBE PRN PRN PRN Reason: For Clogged Feeding Tube Sodium Polystyrene Sulfonate (Kionex) 15 gm PO Q6H PRN PRN Reason: Hyperkalemia Last Admin: 01/24/17 00:41 Dose: 15 gm Review of Systems All systems: negative (see hpi) Exam Vital Signs BP Pulse Ox 182/99 98 01/18/17 23:53 01/18/17 23:53 Narrative exam: General: arousable, responds to commands with yes/no answers. Opens eyes to verbal command CV: S1, S2+ Resp: NO audible wheezes Abd: soft, distended, NT, + bowel sounds in all four quadrants Ext: LUE edema, b/l UE soft restraints Results - Labs 01/24/17 05:45 01/24/17 05:45 Abnormal lab results 01/24/17 01/24/17 01/24/17 Range/Units 11:49 17:45 23:29 POC Glucose 170 H 141 H 154 H (70-105) - Imaging Abdominal x-ray: report reviewed, image reviewed (large distended stomach. air and stool in colon) Assessment and Plan 86 y/o M with distended stomach on abd xray, recently on TF via dobhoff, acute respiratory failure now on BIPAP, seizure 1. NGT placed at bedside with immediate return of 400 cc of tube feeds, will continue on low continuous suction and monitor output 2. NPO 3. IVF 4. continue restraints as patient has pulled out dobhoff tube and IVs during this hospital admission 5. will obtain obstruction series in am, if not improved may need CT A/P 6. continue supportive care 7. d/w nursing and Dr. Ruvalcaba. 8. repeat labs in am
[2017-01-25] MEDS ORDERED: D5/0.45NS 1,000 ML IV SCH (18:00)
--- NOTE | 2017-01-25 18:44 | Progress Note ---
Assessment and Plan Patient sleeping at this time. Opening eyes on stimulation. Not following any commands.No acute respiratory distress. On 3 litres O2.O2 saturation 99%. - Patient Problems (1) Acute respiratory failure with hypoxia Current Visit: Yes Status: Acute Plan to address problem: Patient extubated and is on nasal canula 3 litres. O2 saturation 99%. Albuterol/atrovent aerosol treatments q 6 hours. DVT and GI Prophylaxis. (2) Acute renal failure (ARF) Current Visit: Yes Status: Acute Qualifiers: Acute renal failure type: A Plan to address problem: Management as per nephrology. (3) Altered mental status Current Visit: Yes Status: Acute Qualifiers: Altered mental status type: transient alteration of awareness Coma depth: C Coma timing: C Qualified Code(s): R40.4 - Transient alteration of awareness Plan to address problem: Management as per primary care and neurology. (4) Seizure-like activity Current Visit: Yes Status: Acute Plan to address problem: Management as per primary care and neurology. Subjective Date of service: 01/25/17 Principal diagnosis: Complex seizures, Acute Resp Failure on MVS; Acute Encephalopathy Interval history: Patient sleeping at this time. Opening eyes on stimulation. Not following any commands.No acute respiratory distress. On 3 litres O2.O2 saturation 99%. Objective Vital Signs - 12hr 01/25/17 01/25/17 01/25/17 08:08 08:20 09:12 Temperature 99.0 F Pulse Rate 84 Pulse Rate [ 102 H 98 H Anterior Bilateral Throughout] Respiratory 20 Rate Respiratory 20 20 Rate [Anterior Bilateral Throughout] Blood Pressure 152/94 O2 Sat by Pulse 100 99 Oximetry 01/25/17 01/25/17 01/25/17 11:30 12:47 13:38 Temperature 97.8 F Pulse Rate 98 H 85 Pulse Rate [ 85 Anterior Bilateral Throughout] Respiratory 20 Rate Respiratory 18 Rate [Anterior Bilateral Throughout] Blood Pressure 159/87 134/82 O2 Sat by Pulse 99 Oximetry 01/25/17 01/25/17 13:48 16:08 Temperature 99.9 F H Pulse Rate 88 Pulse Rate [ 84 Anterior Bilateral Throughout] Respiratory 18 Rate Respiratory 20 Rate [Anterior Bilateral Throughout] Blood Pressure 136/72 O2 Sat by Pulse 100 Oximetry Constitutional: no acute distress, asleep Eyes: non-icteric, other (PERRL, EOMI) ENT: oropharynx moist Neck: supple, no lymphadenopathy, no JVD, other (no thyromegaly) Effort: mildly labored Ascultation: Bilateral: diminished breath sounds, rales (scant in bases), other (referred upper airway sounds) Percussion: Bilateral: not dull Cardiovascular: regular rate and rhythm (S1,S2, systolic murmur), other (No rubs or murmurs) Gastrointestinal: normoactive bowel sounds, non-tender, non-distended (obese), other (no HSM) Integumentary: other (stasis dermatitis bilaterally) Extremities: no cyanosis, no edema, pulses normal, no ischemia or petechiae Neurologic: non-focal exam, pupils equal and round, motor strength normal and, unable to assess, other (improved insight) Psychiatric: other (unable to asses . Patient sleepy and not oriented.) CBC and BMP: 01/24/17 05:45 01/24/17 05:45 ABG, PT/INR, D-dimer: ABG POC ABG pH 7.286 (7.35-7.45) L 01/23/17 09:22 ABG pH 7.317 pH Units (7.350-7.450) L 01/23/17 15:56 POC ABG pCO2 42.2 (35-45) 01/23/17 09:22 ABG pCO2 45.5 mm Hg 01/23/17 15:56 POC ABG pO2 89 (80-105) 01/23/17 09:22 ABG pO2 115.3 mm Hg (80.0-90.0) H 01/23/17 15:56 POC ABG HCO3 20.1 01/23/17 09:22 POC ABG Total CO2 21 01/23/17 09:22 POC ABG O2 Sat 96 01/23/17 09:22 ABG O2 Saturation 97.9 % (95.0-99.0) 01/23/17 15:56 PT/INR, D-dimer PT 13.4 Sec. (12.2-14.9) 01/18/17 23:10 INR 0.97 (0.87-1.13) 01/18/17 23:10 Abnormal lab findings: Abnormal Labs 01/19/17 01/19/17 01/19/17 03:45 05:46 07:49 RBC Hgb Hct MCV RDW Plt Count Graves % (Auto) Graves # Seg Neutrophils % Seg Neuts % (Manual) Lymphocytes % (Manual) Monocytes % (Manual) Nucleated RBC % Lymphocytes # (Manual) POC ABG pH 7.295 L ABG pH POC ABG pCO2 46.4 H POC ABG pO2 231 H ABG pO2 ABG Base Excess Sodium Potassium Chloride Carbon Dioxide BUN Creatinine Glucose POC Glucose 113 H Calcium Total Creatine Kinase Troponin T 0.046 H D C-Reactive Protein Albumin HDL Cholesterol 64 H 01/19/17 01/20/17 01/20/17 23:39 03:47 03:47 RBC 5.11 H Hgb 16.1 H Hct 48.6 H MCV 95 H RDW Plt Count 110 L Graves % (Auto) 14.6 H Graves # 1.3 H Seg Neutrophils % Seg Neuts % (Manual) Lymphocytes % (Manual) Monocytes % (Manual) Nucleated RBC % Lymphocytes # (Manual) POC ABG pH ABG pH POC ABG pCO2 POC ABG pO2 ABG pO2 ABG Base Excess Sodium 136 L Potassium Chloride Carbon Dioxide 20 L BUN Creatinine 2.0 H D Glucose POC Glucose 122 H Calcium 8.1 L Total Creatine Kinase Troponin T C-Reactive Protein Albumin HDL Cholesterol 01/20/17 01/20/17 01/20/17 05:18 14:59 22:09 RBC Hgb Hct MCV RDW Plt Count Graves % (Auto) Graves # Seg Neutrophils % Seg Neuts % (Manual) Lymphocytes % (Manual) Monocytes % (Manual) Nucleated RBC % Lymphocytes # (Manual) POC ABG pH ABG pH POC ABG pCO2 30.4 L POC ABG pO2 ABG pO2 ABG Base Excess Sodium Potassium Chloride Carbon Dioxide BUN Creatinine Glucose POC Glucose 144 H Calcium Total Creatine Kinase 257 H Troponin T C-Reactive Protein Albumin HDL Cholesterol 01/21/17 01/21/17 01/21/17 05:54 14:01 14:01 RBC Hgb Hct MCV 95 H RDW Plt Count 106 L Graves % (Auto) Graves # Seg Neutrophils % Seg Neuts % (Manual) Lymphocytes % (Manual) Monocytes % (Manual) Nucleated RBC % Lymphocytes # (Manual) POC ABG pH ABG pH POC ABG pCO2 29.0 L POC ABG pO2 74 L ABG pO2 ABG Base Excess Sodium Potassium Chloride Carbon Dioxide 18 L BUN 22 H Creatinine Glucose POC Glucose Calcium 7.5 L Total Creatine Kinase Troponin T C-Reactive Protein Albumin HDL Cholesterol 01/22/17 01/22/17 01/22/17 08:47 09:24 09:24 RBC Hgb Hct MCV 95 H RDW Plt Count 102 L Graves % (Auto) Graves # Seg Neutrophils % Seg Neuts % (Manual) Lymphocytes % (Manual) Monocytes % (Manual) Nucleated RBC % Lymphocytes # (Manual) POC ABG pH ABG pH POC ABG pCO2 POC ABG pO2 ABG pO2 ABG Base Excess Sodium Potassium Chloride 109.5 H Carbon Dioxide 20 L BUN Creatinine Glucose 120 H POC Glucose 112 H Calcium 7.8 L Total Creatine Kinase Troponin T C-Reactive Protein Albumin HDL Cholesterol 01/22/17 01/23/17 01/23/17 17:34 09:22 12:22 RBC Hgb Hct MCV RDW Plt Count [place] % (Auto) Graves # Seg Neutrophils % Seg Neuts % (Manual) Lymphocytes % (Manual) Monocytes % (Manual) Nucleated RBC % Lymphocytes # (Manual) POC ABG pH 7.286 L ABG pH POC ABG pCO2 POC ABG pO2 ABG pO2 ABG Base Excess Sodium Potassium Chloride Carbon Dioxide BUN Creatinine Glucose POC Glucose 110 H 127 H Calcium Total Creatine Kinase Troponin T C-Reactive Protein Albumin HDL Cholesterol 01/23/17 01/23/17 01/23/17 15:07 15:07 15:56 RBC 5.98 H Hgb 18.4 H D Hct 56.0 H D MCV RDW 13.1 L Plt Count 79 L Graves % (Auto) Graves # Seg Neutrophils % Seg Neuts % (Manual) 80.0 H Lymphocytes % (Manual) 8.0 L Monocytes % (Manual) 9.0 H Nucleated RBC % 1.0 H Lymphocytes # (Manual) 0.7 L POC ABG pH ABG pH 7.317 L POC ABG pCO2 POC ABG pO2 ABG pO2 115.3 H ABG Base Excess -3.5 L Sodium Potassium 5.7 H D Chloride 109.7 H Carbon Dioxide 19 L BUN Creatinine Glucose 106 H POC Glucose Calcium 7.5 L Total Creatine Kinase Troponin T C-Reactive Protein Albumin HDL Cholesterol 01/23/17 01/23/17 01/24/17 16:12 23:46 05:37 RBC Hgb Hct MCV RDW Plt Count [place] % (Auto) Graves # Seg Neutrophils % Seg Neuts % (Manual) Lymphocytes % (Manual) Monocytes % (Manual) Nucleated RBC % Lymphocytes # (Manual) POC ABG pH ABG pH POC ABG pCO2 POC ABG pO2 ABG pO2 ABG Base Excess Sodium Potassium Chloride Carbon Dioxide BUN Creatinine Glucose POC Glucose 109 H 118 H Calcium Total Creatine Kinase Troponin T C-Reactive Protein 7.20 H Albumin HDL Cholesterol 01/24/17 01/24/17 01/24/17 05:45 05:45 11:49 RBC Hgb Hct MCV RDW Plt Count 110 L Graves % (Auto) 11.0 H Graves # 0.9 H Seg Neutrophils % 73.0 H Seg Neuts % (Manual) Lymphocytes % (Manual) Monocytes % (Manual) Nucleated RBC % Lymphocytes # (Manual) POC ABG pH ABG pH POC ABG pCO2 POC ABG pO2 ABG pO2 ABG Base Excess Sodium Potassium Chloride 108.2 H Carbon Dioxide BUN Creatinine Glucose 119 H POC Glucose 170 H Calcium 7.9 L Total Creatine Kinase Troponin T C-Reactive Protein Albumin 2.8 L HDL Cholesterol 01/24/17 01/24/17 17:45 23:29 RBC Hgb Hct MCV RDW Plt Count [place] % (Auto) Graves # Seg Neutrophils % Seg Neuts % (Manual) Lymphocytes % (Manual) Monocytes % (Manual) Nucleated RBC % Lymphocytes # (Manual) POC ABG pH ABG pH POC ABG pCO2 POC ABG pO2 ABG pO2 ABG Base Excess Sodium Potassium Chloride Carbon Dioxide BUN Creatinine Glucose POC Glucose 141 H 154 H Calcium Total Creatine Kinase Troponin T C-Reactive Protein Albumin HDL Cholesterol Chest x-ray: report reviewed (No acute cardiopulmonary process.), image reviewed Allied health notes reviewed: RT
--- NOTE | 2017-01-25 19:34 | Progress Note ---
Assessment and Plan / Abdominal pain - Abdominal xry showed possible gastric outlet obstruction - consulted GS, getting placed on NG suction - Keep NPO - will obtain abdominal series tomorrow /Acute eccephalopathy - likely postictal from seizure, also cannot r/o metabolic cause - improved /Acute respiratory failure - Self extubated on 01/22/17 - intubated in the ER following admission - pulmonary following - transitioned to nebulizer breathing treatment, supplemental oxygen to keep oxygen saturation greater than 92% with BiPAP - now off BiPAP, maintaining O2 sat with N/C /Complex seizure, CVA ruled out - head CT with NAF; carotid studies show <50% stenosis bilaterally - cont keppra iv, as needed ativan - MRI brain obtained showed no acute CVA - neurology consulted /SIRS - pt had tachycardia, tachypnea, elevated lactic acid following admission - could be reactive - will cover with Abx empirically for now - Blood culture negative, sputum culture growing mixed respiratory joni, UA negative - We will await for final culture report /Hypertension, malignant on admission - monitor BP carefully - metoprolol iv as needed if SBP >160 - resume coreg, plavix and statin when tolerates po ARTURO/ATN - monitor renal function, Cr trended down to normal - iv fluid, free h20 with TF - if cont to decline will consult renal /hyperkalemia - resolved now, cont to monitor /Diabetes type 2 - SSI, monitor BG q6h /Elevated troponin - negative x 2 with minimal elevation of 3rd set; ECG with NAF; suspect secondary to seizure activity - cardiology following, Ef 55% on Echo /CAD s/p CABG - HIRSCH to LAD, saphenous graft to anterolateral obtuse margin (10/2012) - cont aspirin, statin when can tolerates po /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 Following arrival to ED, TPA was not given because there was concern for complex seizure. Pt was then witnessed to a have tonic-clonic seizure in the emergency room, with sonorous respiration, patient was then intubated in the emergency room. Patient was admitted to the intensive care unit, critical care is following the patient. He self extubated on 01/617. Now developed abdominal distension, XRY showed posible gastric outlet obstruction. Current Meds: Generic Name Dose Route Start Last Admin Trade Name Freq PRN Reason Stop Dose Admin Albuterol 2.5 mg 01/24/17 17:11 Proventil IH Q4HRT PRN Shortness Of Breath Albuterol/Ipratropium 1 ampul 01/24/17 02:00 01/25/17 19:49 Duoneb *Not For Prn Use* IH 1 ampul Q6HRT [facility] Administration Lipase/Protease/Amylase 1 each 01/23/17 17:15 Talat Carrera 10,500 Unit FEEDTUBE PRN PRN For Clogged Feeding Tube Lipase/Protease/Amylase 1 each 01/24/17 10:53 Talat Carrera 10,500 Unit FEEDTUBE PRN PRN For Clogged Feeding Tube Bisacodyl 10 mg 01/24/17 15:00 01/25/17 11:34 Dulcolax SD Not Given QDAY E[facility] Clopidogrel Bisulfate 75 mg 01/23/17 18:00 01/25/17 11:33 Plavix PO 75 mg QDAY [facility] Administration Enoxaparin Sodium 40 mg 01/23/17 22:00 01/25/17 23:23 Lovenox SUB-Q 40 mg QDAY@2200 [facility] Administration Dextrose/Sodium Chloride 1,000 mls @ 75 mls/hr 01/23/17 18:00 01/25/17 05:36 D5/0.45ns IV 75 mls/hr DIRECT [facility] Administration Levetiracetam 1,000 mg/ Sodium 110 mls @ 400 mls/hr 01/24/17 00:00 01/26/17 00:02 Chloride IV 400 mls/hr Q12H [facility] Administration Dextrose/Sodium Chloride 1,000 mls @ 75 mls/hr 01/25/17 18:00 D5/0.45ns IV DIRECT [facility] Latanoprost 1 drops 01/23/17 18:00 01/25/17 23:24 Xalatan 0.005% OU 1 drops QPM [facility] Administration Metoprolol Tartrate 5 mg 01/24/17 12:41 Lopressor IV Q6HR PRN Tachyarrhythmias Miscellaneous Medication 1 drops 01/23/17 20:00 01/25/17 19:56 Pilocarpine 1% (Nf) OU Not Given TID [facility] Ondansetron HCl 4 mg 01/24/17 10:56 01/24/17 11:11 Zofran IV 4 mg Q4H PRN Administration Nausea And Vomiting Oxycodone/Acetaminophen 1 tab 01/24/17 10:56 01/24/17 11:11 Percocet 5/325 PO 1 tab Q4H PRN Administration Pain, Moderate (4-6) Pantoprazole Sodium 40 mg 01/23/17 23:24 01/25/17 11:31 Protonix IV 40 mg QDAY [facility] Administration Simple Syrup 15 ml 01/23/17 17:15 Simple Syrup FEEDTUBE PRN PRN Hypoglycemia Simple Syrup 30 ml 01/23/17 17:15 Simple Syrup FEEDTUBE PRN PRN Hypoglycemia Simple Syrup 15 ml 01/24/17 10:53 Simple Syrup FEEDTUBE PRN PRN Hypoglycemia Simple Syrup 30 ml 01/24/17 10:53 Simple Syrup FEEDTUBE PRN PRN Hypoglycemia Simvastatin 40 mg 01/23/17 22:00 01/25/17 23:24 Zocor PO Not Given QHS [facility] Sodium Bicarbonate 325 mg 01/23/17 17:15 Sodium Bicarbonate FEEDTUBE PRN PRN For Clogged Feeding Tube Sodium Bicarbonate 325 mg 01/24/17 10:53 Sodium Bicarbonate FEEDTUBE PRN PRN For Clogged Feeding Tube Sodium Polystyrene Sulfonate 15 gm 01/23/17 23:21 01/24/17 00:41 Kionex PO 15 gm Q6H PRN Administration Hyperkalemia Microbiology 01/19/17 20:38 Peripheral/Venous Blood Culture - Final NO GROWTH AFTER 5 DAYS 01/19/17 20:38 Peripheral/Venous Blood Culture - Final NO GROWTH AFTER 5 DAYS 01/19/17 03:45 Sputum - Endotracheal Wash Sputum Culture - Final Subjective Date of service: 01/25/17 Principal diagnosis: Complex seizures, Acute Resp Failure on MVS; Acute Encephalopathy Interval history: Patient seen and examined. Pt was tolerating TF, had BM today took off his dobhoff today morning Abdominal XRY showed possible gastric outlet obstruction Objective - Exam Narrative Exam: GENERAL: well-developed obese -[place] male lying on bed HEENT: Normocephalic. Atraumatic. No conjunctival congestion or icterus. Patient has dry mucous membranes. On n/c NECK: Trachea midline. CHEST/LUNGS: Clear to auscultated bilaterally, No wheezes crackles or rhonchi. HEART/CARDIOVASCULAR: S1 and S2 positive. ABDOMEN: Abdomen is soft, nontender. Patient has normal bowel sounds. SKIN: There is no rash. Warm and dry. NEURO: follow minor command MUSkulosKELETAL: No joint effusion or tenderness. EXTRIMITY: No edema, no cyanosis or clubbing. PSYCH: no agitation. - Constitutional Vitals: Vital Signs - 12hr 01/25/17 01/25/17 01/25/17 08:08 08:20 09:12 Temperature 99.0 F Pulse Rate 84 Pulse Rate [ 102 H 98 H Anterior Bilateral Throughout] Respiratory 20 Rate Respiratory 20 20 Rate [Anterior Bilateral Throughout] Blood Pressure 152/94 O2 Sat by Pulse 100 99 Oximetry 01/25/17 01/25/17 01/25/17 10:00 11:30 12:47 Temperature 97.8 F Pulse Rate 98 H 85 Pulse Rate [ Anterior Bilateral Throughout] Respiratory 20 Rate Respiratory Rate [Anterior Bilateral Throughout] Blood Pressure 159/87 134/82 O2 Sat by Pulse 96 99 Oximetry 01/25/17 01/25/17 01/25/17 13:38 13:48 16:08 Temperature 99.9 F H Pulse Rate 88 Pulse Rate [ 85 84 Anterior Bilateral Throughout] Respiratory 18 Rate Respiratory 18 20 Rate [Anterior Bilateral Throughout] Blood Pressure 136/72 O2 Sat by Pulse 100 Oximetry 01/25/17 18:54 Temperature Pulse Rate 94 H Pulse Rate [ Anterior Bilateral Throughout] Respiratory Rate Respiratory Rate [Anterior Bilateral Throughout] Blood Pressure O2 Sat by Pulse Oximetry - Labs CBC & Chem 7: 01/24/17 05:45 01/24/17 05:45 Labs: Abnormal lab results 01/24/17 Range/Units 23:29 POC Glucose 154 H (70-105)
[2017-01-25] MEDS: LOVENOX SUB-Q SCH (23:23)
[2017-01-25] MEDS: XALATAN 0.005% OU SCH (23:24)
[2017-01-25] MEDS: ZOCOR PO SCH (23:24)
[2017-01-26] MEDS: KEPPRA 1,000 MG in NACL 0.9% 100 ML IV SCH ×2 (00:02→12:04)
[2017-01-26] MEDS: DUONEB *Not for PRN Use IH SCH ×4 (02:02→20:46)
[2017-01-26] MEDS: PILOCARPINE 1% OU SCH ×3 (08:32→21:00)
[2017-01-26] MEDS: DULCOLAX PR SCH (10:00)
[2017-01-26 10:48] LABS: Basophils % (Auto) 0.6 % (0.0-1.8); Eosinophils % (Auto) 2.7 % (0.0-4.3); Hematocrit 41.8 % (35.5-45.6); Hemoglobin 13.6 gm/dl (11.8-15.2); Mean Corpuscular HGB Conc 33 % (32-34); Mean Corpuscular Hemoglobin 31 pg (28-32); Mean Corpuscular Volume 94 fl (84-94); Platelet Count 129 K/mm3 (140-440); Red Blood Count 4.45 M/mm3 (3.65-5.03); Red Cell Distribution Width 13.1 % (13.2-15.2); White Blood Count 7.1 K/mm3 (4.5-11.0)
[2017-01-26 11:01] LABS: Anion Gap 15 mmol/L; BUN/Creatinine Ratio 16; Blood Urea Nitrogen 14 mg/dL (9-20); Calcium 7.6 mg/dL (8.4-10.2); Carbon Dioxide 27 mmol/L (22-30); Glucose 97 mg/dL (75-100); Potassium 3.3 mmol/L (3.6-5.0); Sodium 142 mmol/L (137-145)
[2017-01-26] MEDS: D5/0.45NS 1,000 ML IV SCH (11:52)
[2017-01-26] MEDS: PROTONIX IV SCH (12:05)
[2017-01-26] MEDS: PLAVIX PO SCH (12:06)
--- NOTE | 2017-01-26 13:34 | Consultation ---
History of Present Illness - Reason for Consult Consult date: 01/26/17 TIA - History of Present Illness went over the MRI and shows seried of severe white matter changes could be basis of TIA plan w/u Past History Past Medical History: CAD, COPD, diabetes, hypertension, hyperlipidemia, other ( ) Past Surgical History: valve replacement (aortic), CABG Medications and Allergies Allergies Allergy/AdvReac Type Severity Reaction Status Date / Time No Known Allergies Allergy Verified 01/18/17 23:21 Home Medications Medication Instructions Recorded Confirmed Last Taken Type Carvedilol [Coreg] 6.25 mg PO BID 11/03/16 01/19/17 1 Day Ago History Clopidogrel [Plavix] 75 mg PO QDAY 11/03/16 01/19/17 1 Day Ago History Simvastatin [Zocor TAB] 40 mg PO QHS 11/03/16 01/19/17 1 Day Ago History Bimatoprost [Lumigan 0.01%] 1 drop OU QHS 01/19/17 01/19/17 Unknown History Brinzolamide/Brimonidine Tart 8 ml OS TID 01/19/17 01/19/17 Unknown History [Simbrinza 1%-0.2% Eye Drops] Glimepiride [Amaryl] 1 mg PO QAM 01/19/17 01/19/17 Unknown History Pilocarpine 1% (Nf) [Isopto 1 drops OU TID 01/19/17 01/19/17 Unknown History Carpine (Nf)] Active Meds: Active Medications Albuterol (Proventil) 2.5 mg IH Q4HRT PRN PRN Reason: Shortness Of Breath Albuterol/Ipratropium (Duoneb *Not For Prn Use*) 1 ampul IH Q6HRT [facility] Last Admin: 01/26/17 13:30 Dose: 1 ampul Lipase/Protease/Amylase (Pancreferoz Carrera 10,500 Unit) 1 each FEEDTUBE PRN PRN PRN Reason: For Clogged Feeding Tube Lipase/Protease/Amylase (Pancreferoz Carrera 10,500 Unit) 1 each FEEDTUBE PRN PRN PRN Reason: For Clogged Feeding Tube Bisacodyl (Dulcolax) 10 mg GA QDAY [facility] Last Admin: 01/25/17 11:34 Dose: Not Given Clopidogrel Bisulfate (Plavix) 75 mg PO QDAY [facility] Last Admin: 01/26/17 12:06 Dose: Not Given Enoxaparin Sodium (Lovenox) 40 mg SUB-Q QDAY@2200 [facility] Last Admin: 01/25/17 23:23 Dose: 40 mg Dextrose/Sodium Chloride (D5/0.45ns) 1,000 mls @ 75 mls/hr IV DIRECT [facility] Last Admin: 01/26/17 11:52 Dose: 75 mls/hr Levetiracetam 1,000 mg/ Sodium (Chloride) 110 mls @ 400 mls/hr IV Q12H [facility] Last Admin: 01/26/17 12:04 Dose: 400 mls/hr Dextrose/Sodium Chloride (D5/0.45ns) 1,000 mls @ 75 mls/hr IV DIRECT [facility] Latanoprost (Xalatan 0.005%) 1 drops OU QPM [facility] Last Admin: 01/25/17 23:24 Dose: 1 drops Metoprolol Tartrate (Lopressor) 5 mg IV Q6HR PRN PRN Reason: Tachyarrhythmias Miscellaneous Medication (Pilocarpine 1% (Nf)) 1 drops OU TID [facility] Last Admin: 01/26/17 08:32 Dose: Not Given Ondansetron HCl (Zofran) 4 mg IV Q4H PRN PRN Reason: Nausea And Vomiting Last Admin: 01/24/17 11:11 Dose: 4 mg Oxycodone/Acetaminophen (Percocet 5/325) 1 tab PO Q4H PRN PRN Reason: Pain, Moderate (4-6) Last Admin: 01/24/17 11:11 Dose: 1 tab Pantoprazole Sodium (Protonix) 40 mg IV QDAY [facility] Last Admin: 01/26/17 12:05 Dose: 40 mg Simple Syrup (Simple Syrup) 15 ml FEEDTUBE PRN PRN PRN Reason: Hypoglycemia Simple Syrup (Simple Syrup) 30 ml FEEDTUBE PRN PRN PRN Reason: Hypoglycemia Simple Syrup (Simple Syrup) 15 ml FEEDTUBE PRN PRN PRN Reason: Hypoglycemia Simple Syrup (Simple Syrup) 30 ml FEEDTUBE PRN PRN PRN Reason: Hypoglycemia Simvastatin (Zocor) 40 mg PO QHS [facility] Last Admin: 01/25/17 23:24 Dose: Not Given Sodium Bicarbonate (Sodium Bicarbonate) 325 mg FEEDTUBE PRN PRN PRN Reason: For Clogged Feeding Tube Sodium Bicarbonate (Sodium Bicarbonate) 325 mg FEEDTUBE PRN PRN PRN Reason: For Clogged Feeding Tube Sodium Polystyrene Sulfonate (Kionex) 15 gm PO Q6H PRN PRN Reason: Hyperkalemia Last Admin: 01/24/17 00:41 Dose: 15 gm Exam - Constitutional Vitals: Temp Pulse Resp BP Pulse Ox 98.4 F 79 16 136/80 99 01/26/17 12:42 01/26/17 12:42 01/26/17 12:42 01/26/17 12:42 01/26/17 12:42 Results - Labs CBC & Chem 7: 01/26/17 10:32 01/26/17 10:32 Labs: Abnormal lab results 01/25/17 01/26/17 01/26/17 Range/Units 12:54 10:32 10:32 RDW 13.1 L (13.2-15.2) % Plt Count 129 L (140-440) K/mm3 [place] % (Auto) 14.7 H (0.0-7.3) % [place] # 1.1 H (0.0-0.8) K/mm3 Potassium 3.3 L (3.6-5.0) mmol/L POC Glucose 106 H (70-105) Calcium 7.6 L (8.4-10.2) mg/dL
--- NOTE | 2017-01-26 13:45 | XRay Report ---
Abdominal series: Compared to 01/25/17. History: NG tube gastric bubble. Findings: There is no NG tube identified. Stomach deflated by approximately 50%. Moderate amount of air noted in colon with minimal air in small bowel. No interval change. No definite consolidation of the lung parenchyma. Impression: Impression: Partially deflated stomach. No interval change in colon.
[2017-01-26] MEDS ORDERED: REGLAN IV ONE (13:47)
--- NOTE | 2017-01-26 13:51 | Progress Note ---
Assessment and Plan 86 y/o M with distended stomach on abd xray ?ileus, recently on TF via dobhoff, acute respiratory failure now on BIPAP, seizure 1. obstruction series today shows deflated stomach by 50%. +air and stool in colon and some air in small bowel. 2. reglan x1 dose now 3. may start a trial of clears and advance diet per dieticians recommendations if he tolerates 4. continue aspiration precautions 5. IVF 6. continue current meds 7. if patient does not tolerate oral diet, recommend replacement of NGT and CT scan A/P with PO contrast 8. D/W Dr. Hill Please note, I will be away 01/27/17 - 01/31/17. Dr. Dykes will be covering. Please call with any questions. Subjective Date of service: 01/26/17 Narrative: Pt seen and examined at bedside. NGT placed yesterday with 500 cc of tube feed output only. Minimal output overnight. Patient pulled out NGT this am. He has no complaints. He states he feels hungry. No f/c, CP, SOB, n/v. He has been having bowel movements, last one was today. Objective Vital Signs - 12hr 01/26/17 01/26/17 01/26/17 03:52 07:19 07:30 Temperature 98.6 F Pulse Rate 80 Pulse Rate [ 79 86 Anterior Bilateral Throughout] Pulse Rate [ From Monitor] Respiratory 20 Rate Respiratory 18 18 Rate [Anterior Bilateral Throughout] Blood Pressure 172/84 Blood Pressure [Left] O2 Sat by Pulse 98 98 Oximetry 01/26/17 01/26/17 01/26/17 07:35 10:00 12:42 Temperature 99.0 F 98.4 F Pulse Rate 78 79 Pulse Rate [ Anterior Bilateral Throughout] Pulse Rate [ 78 From Monitor] Respiratory 16 16 16 Rate Respiratory Rate [Anterior Bilateral Throughout] Blood Pressure 136/80 Blood Pressure 146/69 [Left] O2 Sat by Pulse 100 100 99 Oximetry - General physical appearance Narrative Exam: Gen: Awake and alert. confused but answers questions. CV: S1, S2+ Resp: no audible wheezes Abd: soft, distended, NT. + bowel sounds in all 4 quadrants. Not tympanitic to percussion. Ext: + edema LUE - Labs 01/26/17 10:32 01/26/17 10:32 Diabetes panel 01/26/17 Range/Units 10:32 Sodium 142 (137-145) mmol/L Potassium 3.3 L (3.6-5.0) mmol/L Chloride 103.0 (98-107) mmol/L Carbon Dioxide 27 (22-30) mmol/L BUN 14 (9-20) mg/dL Creatinine 0.9 (0.8-1.5) mg/dL Glucose 97 (75-100) mg/dL Calcium 7.6 L (8.4-10.2) mg/dL Calcium panel 01/26/17 Range/Units 10:32 Calcium 7.6 L (8.4-10.2) mg/dL Pituitary panel 01/26/17 Range/Units 10:32 Sodium 142 (137-145) mmol/L Potassium 3.3 L (3.6-5.0) mmol/L Chloride 103.0 (98-107) mmol/L Carbon Dioxide 27 (22-30) mmol/L BUN 14 (9-20) mg/dL Creatinine 0.9 (0.8-1.5) mg/dL Glucose 97 (75-100) mg/dL Calcium 7.6 L (8.4-10.2) mg/dL Adrenal panel 01/26/17 Range/Units 10:32 Sodium 142 (137-145) mmol/L Potassium 3.3 L (3.6-5.0) mmol/L Chloride 103.0 (98-107) mmol/L Carbon Dioxide 27 (22-30) mmol/L BUN 14 (9-20) mg/dL Creatinine 0.9 (0.8-1.5) mg/dL Glucose 97 (75-100) mg/dL Calcium 7.6 L (8.4-10.2) mg/dL
--- NOTE | 2017-01-26 13:56 | Progress Note ---
Assessment and Plan Assessment and plan: Patient admitted on 01/19/2017, this is my first day with patient Patient is a 86-year-old man who lives at home with history of hypertension, type 2 diabetes mellitus, coronary artery disease status post CABG, glaucoma, COPD, dyslipidemia and bioprosthetic aVR who presented with altered mental status/strokelike symptoms; he was found to have seizure activity requiring intubation in the emergency department upon admission on 01/19/2017 and self extubated on 01/22/2017. Pt pulled out ngt 01/25/17 also. -Acute encephalopathy: Treat underlying condition,restraints renewed. -Acute hypoxic respiratory failure: Continue oxygen via nasal cannula, nebs -Status epilepticus, present on admission: Seizure medication/keppra -No NSTEMI -Abdominal distension, stil npo, unlikely gastric outlet obstruction d/w Gen. Surgeon, Dr. Mayfield: hima kruse, pt had BM -ARF due to ATN, poa, resolved -SIRS poa -Malignant hypertension, poa, resolved -DVT prophylaxis: sq lovenox History Interval history: Patient seen and examined, follow up confusion which is still present Hospitalist Physical - Physical exam Narrative exam: GEN: WDWN, NAD, AWAKE, ALERT, ORIENTATED x 1 HEENT: NCAT, EOMI, PERRL, OP Clear NECK: supple, no adenopathy, no thyromegaly, no JVD CVS/HEART: RRR, NORMAL S1S2, NO JVD, pulses present bilaterally CHEST/LUNGS: CTA B, Symmetrical chest expansion, good air entry bilaterally GI/Abdomen: soft, NTND, good bowel sounds, no guarding or rebound /Bladder: no suprapubic tenderness, no CVA or paraspinal tenderness EXT/Skin: no c/c/e, no significant edema or obvious rash MSK: FROM x 4 Neuro: CN 2-12 grossly intact, doesn't follow all commands Psych: calm but confused - Constitutional Vitals: Temp Pulse Resp BP Pulse Ox 98.4 F 79 16 136/80 99 01/26/17 12:42 01/26/17 12:42 01/26/17 12:42 01/26/17 12:42 01/26/17 12:42 General appearance: Present: no acute distress, obese. Absent: other Results - Labs CBC & Chem 7: 01/26/17 10:32 01/26/17 10:32 Labs: Laboratory Last Values WBC 7.1 K/mm3 (4.5-11.0) 01/26/17 10:32 RBC 4.45 M/mm3 (3.65-5.03) 01/26/17 10:32 Hgb 13.6 gm/dl (11.8-15.2) 01/26/17 10:32 Hct 41.8 % (35.5-45.6) 01/26/17 10:32 MCV 94 fl (84-94) 01/26/17 10:32 MCH 31 pg (28-32) 01/26/17 10:32 MCHC 33 % (32-34) 01/26/17 10:32 RDW 13.1 % (13.2-15.2) L 01/26/17 10:32 Plt Count 129 K/mm3 (140-440) L 01/26/17 10:32 Lymph % (Auto) 23.8 % (13.4-35.0) 01/26/17 10:32 Young % (Auto) 14.7 % (0.0-7.3) H 01/26/17 10:32 Eos % (Auto) 2.7 % (0.0-4.3) 01/26/17 10:32 Baso % (Auto) 0.6 % (0.0-1.8) 01/26/17 10:32 Lymph # 1.7 K/mm3 (1.2-5.4) 01/26/17 10:32 Young # 1.1 K/mm3 (0.0-0.8) H 01/26/17 10:32 Eos # 0.2 K/mm3 (0.0-0.4) 01/26/17 10:32 Baso # 0.0 K/mm3 (0.0-0.1) 01/26/17 10:32 Add Manual Diff Complete 01/23/17 15:07 Total Counted 100 01/23/17 15:07 Seg Neutrophils % 58.2 % (40.0-70.0) 01/26/17 10:32 Seg Neuts % (Manual) 80.0 % (40.0-70.0) H 01/23/17 15:07 Band Neutrophils % 3.0 % 01/23/17 15:07 Lymphocytes % (Manual) 8.0 % (13.4-35.0) L 01/23/17 15:07 Reactive Lymphs % (Man) 0 % 01/23/17 15:07 Monocytes % (Manual) 9.0 % (0.0-7.3) H 01/23/17 15:07 Eosinophils % (Manual) 0 % (0.0-4.3) 01/23/17 15:07 Basophils % (Manual) 0 % (0.0-1.8) 01/23/17 15:07 Metamyelocytes % 0 % 01/23/17 15:07 Myelocytes % 0 % 01/23/17 15:07 Promyelocytes % 0 % 01/23/17 15:07 Blast Cells % 0 % 01/23/17 15:07 Nucleated RBC % 1.0 % (0.0-0.9) H 01/23/17 15:07 Seg Neutrophils # 4.2 K/mm3 (1.8-7.7) 01/26/17 10:32 Seg Neutrophils # Man 7.3 K/mm3 (1.8-7.7) 01/23/17 15:07 Band Neutrophils # 0.3 K/mm3 01/23/17 15:07 Lymphocytes # (Manual) 0.7 K/mm3 (1.2-5.4) L 01/23/17 15:07 Abs React Lymphs (Man) 0.0 K/mm3 01/23/17 15:07 Monocytes # (Manual) 0.8 K/mm3 (0.0-0.8) 01/23/17 15:07 Eosinophils # (Manual) 0.0 K/mm3 (0.0-0.4) 01/23/17 15:07 Basophils # (Manual) 0.0 K/mm3 (0.0-0.1) 01/23/17 15:07 Metamyelocytes # 0.0 K/mm3 01/23/17 15:07 Myelocytes # 0.0 K/mm3 01/23/17 15:07 Promyelocytes # 0.0 K/mm3 01/23/17 15:07 Blast Cells # 0.0 K/mm3 01/23/17 15:07 WBC Morphology Not Reportable 01/23/17 15:07 Hypersegmented Neuts Not Reportable 01/23/17 15:07 Hyposegmented Neuts Not Reportable 01/23/17 15:07 Hypogranular Neuts Not Reportable 01/23/17 15:07 Smudge Cells Not Reportable 01/23/17 15:07 Toxic Granulation Not Reportable 01/23/17 15:07 Toxic Vacuolation Not Reportable 01/23/17 15:07 Dohle Bodies Not Reportable 01/23/17 15:07 Pelger-Huet Anomaly Not Reportable 01/23/17 15:07 Marii Rods Not Reportable 01/23/17 15:07 Platelet Estimate Consistent w auto 01/23/17 15:07 Clumped Platelets Not Reportable 01/23/17 15:07 Plt Clumps, EDTA Not Reportable 01/23/17 15:07 Large Platelets Not Reportable 01/23/17 15:07 Giant Platelets Not Reportable 01/23/17 15:07 Platelet Satelliting Not Reportable 01/23/17 15:07 Plt Morphology Comment Not Reportable 01/23/17 15:07 RBC Morphology Not Reportable 01/23/17 15:07 Dimorphic RBCs Not Reportable 01/23/17 15:07 Polychromasia Not Reportable 01/23/17 15:07 Hypochromasia Not Reportable 01/23/17 15:07 Poikilocytosis Not Reportable 01/23/17 15:07 Anisocytosis Not Reportable 01/23/17 15:07 Microcytosis Not Reportable 01/23/17 15:07 Macrocytosis Not Reportable 01/23/17 15:07 Spherocytes Not Reportable 01/23/17 15:07 Pappenheimer Bodies Not Reportable 01/23/17 15:07 Sickle Cells Not Reportable 01/23/17 15:07 Target Cells Not Reportable 01/23/17 15:07 Tear Drop Cells Not Reportable 01/23/17 15:07 Ovalocytes Few 01/23/17 15:07 Helmet Cells Not Reportable 01/23/17 15:07 Ca-Burleigh Bodies Not Reportable 01/23/17 15:07 G[place]on Rings Not Reportable 01/23/17 15:07 Benoit Cells Not Reportable 01/23/17 15:07 Bite Cells Not Reportable 01/23/17 15:07 Crenated Cell Not Reportable 01/23/17 15:07 Elliptocytes Not Reportable 01/23/17 15:07 Acanthocytes (Spur) Not Reportable 01/23/17 15:07 Rouleaux Not Reportable 01/23/17 15:07 Hemoglobin C Crystals Not Reportable 01/23/17 15:07 Schistocytes Not Reportable 01/23/17 15:07 Malaria parasites Not Reportable 01/23/17 15:07 Terrell Bodies Not Reportable 01/23/17 15:07 Hem Pathologist Commnt No 01/23/17 15:07 PT 13.4 Sec. (12.2-14.9) 01/18/17 23:10 INR 0.97 (0.87-1.13) 01/18/17 23:10 APTT 27.4 Sec. (24.2-36.6) 01/18/17 23:10 Thrombin Time 17.5 Sec. (15.1-19.6) 01/18/17 23:10 POC ABG pH 7.286 (7.35-7.45) L 01/23/17 09:22 ABG pH 7.317 pH Units (7.350-7.450) L 01/23/17 15:56 POC ABG pCO2 42.2 (35-45) 01/23/17 09:22 ABG pCO2 45.5 mm Hg 01/23/17 15:56 POC ABG pO2 89 (80-105) 01/23/17 09:22 ABG pO2 115.3 mm Hg (80.0-90.0) H 01/23/17 15:56 POC ABG HCO3 20.1 01/23/17 09:22 ABG HCO3 22.8 mmol/L (20.0-26.0) 01/23/17 15:56 POC ABG Total CO2 21 01/23/17 09:22 POC ABG O2 Sat 96 01/23/17 09:22 ABG O2 Saturation 97.9 % (95.0-99.0) 01/23/17 15:56 ABG O2 Content 19.7 (0.0-44) 01/23/17 15:56 POC ABG Base Excess -7 01/23/17 09:22 ABG Base Excess -3.5 mmol/L (-2.0-3.0) L 01/23/17 15:56 ABG Hemoglobin 14.5 gm/dl (14.0-18.0) 01/23/17 15:56 ABG Carboxyhemoglobin 1.2 % (0.0-5.0) 01/23/17 15:56 ABG Methemoglobin 0.6 % (0.0-1.5) 01/23/17 15:56 Oxyhemoglobin 96.2 % (95.0-99.0) 01/23/17 15:56 FiO2 35 % 01/23/17 15:56 Sodium 142 mmol/L (137-145) 01/26/17 10:32 Potassium 3.3 mmol/L (3.6-5.0) L 01/26/17 10:32 Chloride 103.0 mmol/L (98-107) 01/26/17 10:32 Carbon Dioxide 27 mmol/L (22-30) 01/26/17 10:32 Anion Gap 15 mmol/L 01/26/17 10:32 BUN 14 mg/dL (9-20) 01/26/17 10:32 Creatinine 0.9 mg/dL (0.8-1.5) 01/26/17 10:32 Estimated GFR > 60 ml/min 01/26/17 10:32 BUN/Creatinine Ratio 16 % 01/26/17 10:32 Glucose 97 mg/dL (75-100) 01/26/17 10:32 POC Glucose 97 (70-105) 01/26/17 11:40 Lactic Acid 0.80 mmol/L (0.7-2.0) 01/23/17 16:12 Calcium 7.6 mg/dL (8.4-10.2) L 01/26/17 10:32 Total Bilirubin 0.30 mg/dL (0.1-1.2) 01/24/17 05:45 AST 21 units/L (5-40) 01/24/17 05:45 ALT 12 units/L (7-56) 01/24/17 05:45 Alkaline Phosphatase 37 units/L (35-129) 01/24/17 05:45 Total Creatine Kinase 257 units/L (55-170) H 01/20/17 14:59 CK-MB (CK-2) 1.6 ng/mL (0.0-4.0) 01/20/17 14:59 CK-MB (CK-2) Rel Index 0.6 (0-4) 01/20/17 14:59 Troponin T 0.013 ng/mL (0.00-0.029) 01/20/17 14:59 C-Reactive Protein 7.20 mg/dL (0.00-1.30) H 01/23/17 16:12 Total Protein 6.3 g/dL (6.3-8.2) 01/24/17 05:45 Albumin 2.8 g/dL (3.9-5) L 01/24/17 05:45 Albumin/Globulin Ratio 0.8 % 01/24/17 05:45 Triglycerides 60 mg/dL (2-149) 01/19/17 05:46 Cholesterol 144 mg/dL (50-199) 01/19/17 05:46 LDL Cholesterol Direct 68 mg/dL (50-130) 01/19/17 05:46 HDL Cholesterol 64 mg/dL (40-59) H 01/19/17 05:46 Cholesterol/HDL Ratio 2.25 % 01/19/17 05:46 Urine Color Straw (Yellow) 01/19/17 04:39 Urine Turbidity Clear (Clear) 01/19/17 04:39 Urine pH 7.0 (5.0-7.0) 01/19/17 04:39 Ur Specific Bowman 1.009 (1.003-1.030) 01/19/17 04:39 Urine Protein >500 mg/dL (Negative) 01/19/17 04:39 Urine Glucose (UA) 50 mg/dL (Negative) 01/19/17 04:39 Urine Ketones Neg mg/dL (Negative) 01/19/17 04:39 Urine Blood Sm (Negative) 01/19/17 04:39 Urine Nitrite Neg (Negative) 01/19/17 04:39 Urine Bilirubin Neg (Negative) 01/19/17 04:39 Urine Urobilinogen < 2.0 mg/dL (<2.0) 01/19/17 04:39 Ur Leukocyte Esterase Neg (Negative) 01/19/17 04:39 Urine WBC (Auto) 1.0 /HPF (0.0-6.0) 01/19/17 04:39 Urine RBC (Auto) 7.0 /HPF (0.0-6.0) 01/19/17 04:39 Urine Mucus Few /HPF 01/19/17 04:39 Urine Opiates Screen Presumptive negative 01/19/17 04:39 Urine Methadone Screen Presumptive negative 01/19/17 04:39 Ur Barbiturates Screen Presumptive negative 01/19/17 04:39 Ur Phencyclidine Scrn Presumptive negative 01/19/17 04:39 Ur Amphetamines Screen Presumptive negative 01/19/17 04:39 U Benzodiazepines Scrn Presumptive negative 01/19/17 04:39 Urine Cocaine Screen Presumptive negative 01/19/17 04:39 U Marijuana (THC) Screen Presumptive negative 01/19/17 04:39 Drugs of Abuse Note Disclamer 01/19/17 04:39 Plasma/Serum Alcohol < 0.01 gm% (0-0.07) 01/18/17 23:10 Blood Type B POSITIVE 01/18/17 23:10 Antibody Screen Negative 01/18/17 23:10
[2017-01-26] MEDS: XALATAN 0.005% OU SCH (18:32)
--- NOTE | 2017-01-26 19:27 | Progress Note ---
Assessment and Plan Patients condition same.Patient sleeping at this time. Opening eyes on stimulation. Not following any commands.No acute respiratory distress. On 3 litres O2.O2 saturation 98%. - Patient Problems (1) Acute respiratory failure with hypoxia Current Visit: Yes Status: Acute Plan to address problem: Patient extubated and is on nasal canula 3 litres. O2 saturation 98%. Albuterol/atrovent aerosol treatments q 6 hours. DVT and GI Prophylaxis. (2) Acute renal failure (ARF) Current Visit: Yes Status: Acute Qualifiers: Acute renal failure type: A Plan to address problem: Management as per nephrology. (3) Altered mental status Current Visit: Yes Status: Acute Qualifiers: Altered mental status type: transient alteration of awareness Coma depth: C Coma timing: C Qualified Code(s): R40.4 - Transient alteration of awareness Plan to address problem: Management as per primary care and neurology. (4) Seizure-like activity Current Visit: Yes Status: Acute Plan to address problem: Management as per primary care and neurology. Subjective Date of service: 01/26/17 Principal diagnosis: Complex seizures, Acute Resp Failure on MVS; Acute Encephalopathy Interval history: Patients condition same.Patient sleeping at this time. Opening eyes on stimulation. Not following any commands.No acute respiratory distress. On 3 litres O2.O2 saturation 98%. Objective Vital Signs - 12hr 01/26/17 01/26/17 01/26/17 07:30 07:35 10:00 Temperature 99.0 F Pulse Rate 78 80 Pulse Rate [ 86 Anterior Bilateral Throughout] Pulse Rate [ 78 From Monitor] Respiratory 16 16 Rate Respiratory 18 Rate [Anterior Bilateral Throughout] Blood Pressure Blood Pressure 146/69 [Left] O2 Sat by Pulse 100 100 Oximetry 01/26/17 01/26/17 01/26/17 12:42 13:30 13:40 Temperature 98.4 F Pulse Rate 79 Pulse Rate [ 82 88 Anterior Bilateral Throughout] Pulse Rate [ From Monitor] Respiratory 16 Rate Respiratory 18 18 Rate [Anterior Bilateral Throughout] Blood Pressure 136/80 Blood Pressure [Left] O2 Sat by Pulse 99 Oximetry Constitutional: no acute distress, asleep Eyes: non-icteric, other (PERRL, EOMI) ENT: oropharynx moist Neck: supple, no lymphadenopathy, no JVD, other (no thyromegaly) Effort: mildly labored Ascultation: Bilateral: diminished breath sounds, rales Percussion: Bilateral: not dull Cardiovascular: regular rate and rhythm (S1,S2, systolic murmur), other (No rubs or murmurs) Gastrointestinal: normoactive bowel sounds, non-tender, non-distended (obese), other (no HSM) Integumentary: other (stasis dermatitis bilaterally) Extremities: no cyanosis, no edema, pulses normal, no ischemia or petechiae Neurologic: non-focal exam, pupils equal and round, motor strength normal and, unable to assess, other (improved insight) Psychiatric: other (unable to asses . Patient sleepy and not oriented.) CBC and BMP: 01/26/17 10:32 01/26/17 10:32 ABG, PT/INR, D-dimer: ABG POC ABG pH 7.286 (7.35-7.45) L 01/23/17 09:22 ABG pH 7.317 pH Units (7.350-7.450) L 01/23/17 15:56 POC ABG pCO2 42.2 (35-45) 01/23/17 09:22 ABG pCO2 45.5 mm Hg 01/23/17 15:56 POC ABG pO2 89 (80-105) 01/23/17 09:22 ABG pO2 115.3 mm Hg (80.0-90.0) H 01/23/17 15:56 POC ABG HCO3 20.1 01/23/17 09:22 POC ABG Total CO2 21 01/23/17 09:22 POC ABG O2 Sat 96 01/23/17 09:22 ABG O2 Saturation 97.9 % (95.0-99.0) 01/23/17 15:56 PT/INR, D-dimer PT 13.4 Sec. (12.2-14.9) 01/18/17 23:10 INR 0.97 (0.87-1.13) 01/18/17 23:10 Abnormal lab findings: Abnormal Labs 01/19/17 01/19/17 01/19/17 03:45 05:46 07:49 RBC Hgb Hct MCV RDW Plt Count Price % (Auto) Price # Seg Neutrophils % Seg Neuts % (Manual) Lymphocytes % (Manual) Monocytes % (Manual) Nucleated RBC % Lymphocytes # (Manual) POC ABG pH 7.295 L ABG pH POC ABG pCO2 46.4 H POC ABG pO2 231 H ABG pO2 ABG Base Excess Sodium Potassium Chloride Carbon Dioxide BUN Creatinine Glucose POC Glucose 113 H Calcium Total Creatine Kinase Troponin T 0.046 H D C-Reactive Protein Albumin HDL Cholesterol 64 H 01/19/17 01/20/17 01/20/17 23:39 03:47 03:47 RBC 5.11 H Hgb 16.1 H Hct 48.6 H MCV 95 H RDW Plt Count 110 L Price % (Auto) 14.6 H Price # 1.3 H Seg Neutrophils % Seg Neuts % (Manual) Lymphocytes % (Manual) Monocytes % (Manual) Nucleated RBC % Lymphocytes # (Manual) POC ABG pH ABG pH POC ABG pCO2 POC ABG pO2 ABG pO2 ABG Base Excess Sodium 136 L Potassium Chloride Carbon Dioxide 20 L BUN Creatinine 2.0 H D Glucose POC Glucose 122 H Calcium 8.1 L Total Creatine Kinase Troponin T C-Reactive Protein Albumin HDL Cholesterol 01/20/17 01/20/17 01/20/17 05:18 14:59 22:09 RBC Hgb Hct MCV RDW Plt Count Price % (Auto) Price # Seg Neutrophils % Seg Neuts % (Manual) Lymphocytes % (Manual) Monocytes % (Manual) Nucleated RBC % Lymphocytes # (Manual) POC ABG pH ABG pH POC ABG pCO2 30.4 L POC ABG pO2 ABG pO2 ABG Base Excess Sodium Potassium Chloride Carbon Dioxide BUN Creatinine Glucose POC Glucose 144 H Calcium Total Creatine Kinase 257 H Troponin T C-Reactive Protein Albumin HDL Cholesterol 01/21/17 01/21/17 01/21/17 05:54 14:01 14:01 RBC Hgb Hct MCV 95 H RDW Plt Count 106 L Price % (Auto) Price # Seg Neutrophils % Seg Neuts % (Manual) Lymphocytes % (Manual) Monocytes % (Manual) Nucleated RBC % Lymphocytes # (Manual) POC ABG pH ABG pH POC ABG pCO2 29.0 L POC ABG pO2 74 L ABG pO2 ABG Base Excess Sodium Potassium Chloride Carbon Dioxide 18 L BUN 22 H Creatinine Glucose POC Glucose Calcium 7.5 L Total Creatine Kinase Troponin T C-Reactive Protein Albumin HDL Cholesterol 01/22/17 01/22/17 01/22/17 08:47 09:24 09:24 RBC Hgb Hct MCV 95 H RDW Plt Count 102 L Price % (Auto) Price # Seg Neutrophils % Seg Neuts % (Manual) Lymphocytes % (Manual) Monocytes % (Manual) Nucleated RBC % Lymphocytes # (Manual) POC ABG pH ABG pH POC ABG pCO2 POC ABG pO2 ABG pO2 ABG Base Excess Sodium Potassium Chloride 109.5 H Carbon Dioxide 20 L BUN Creatinine Glucose 120 H POC Glucose 112 H Calcium 7.8 L Total Creatine Kinase Troponin T C-Reactive Protein Albumin HDL Cholesterol 01/22/17 01/23/17 01/23/17 17:34 09:22 12:22 RBC Hgb Hct MCV RDW Plt Count Price % (Auto) Price # Seg Neutrophils % Seg Neuts % (Manual) Lymphocytes % (Manual) Monocytes % (Manual) Nucleated RBC % Lymphocytes # (Manual) POC ABG pH 7.286 L ABG pH POC ABG pCO2 POC ABG pO2 ABG pO2 ABG Base Excess Sodium Potassium Chloride Carbon Dioxide BUN Creatinine Glucose POC Glucose 110 H 127 H Calcium Total Creatine Kinase Troponin T C-Reactive Protein Albumin HDL Cholesterol 01/23/17 01/23/17 01/23/17 15:07 15:07 15:56 RBC 5.98 H Hgb 18.4 H D Hct 56.0 H D MCV RDW 13.1 L Plt Count 79 L Price % (Auto) Price # Seg Neutrophils % Seg Neuts % (Manual) 80.0 H Lymphocytes % (Manual) 8.0 L Monocytes % (Manual) 9.0 H Nucleated RBC % 1.0 H Lymphocytes # (Manual) 0.7 L POC ABG pH ABG pH 7.317 L POC ABG pCO2 POC ABG pO2 ABG pO2 115.3 H ABG Base Excess -3.5 L Sodium Potassium 5.7 H D Chloride 109.7 H Carbon Dioxide 19 L BUN Creatinine Glucose 106 H POC Glucose Calcium 7.5 L Total Creatine Kinase Troponin T C-Reactive Protein Albumin HDL Cholesterol 01/23/17 01/23/17 01/24/17 16:12 23:46 05:37 RBC Hgb Hct MCV RDW Plt Count Price % (Auto) Price # Seg Neutrophils % Seg Neuts % (Manual) Lymphocytes % (Manual) Monocytes % (Manual) Nucleated RBC % Lymphocytes # (Manual) POC ABG pH ABG pH POC ABG pCO2 POC ABG pO2 ABG pO2 ABG Base Excess Sodium Potassium Chloride Carbon Dioxide BUN Creatinine Glucose POC Glucose 109 H 118 H Calcium Total Creatine Kinase Troponin T C-Reactive Protein 7.20 H Albumin HDL Cholesterol 01/24/17 01/24/17 01/24/17 05:45 05:45 11:49 RBC Hgb Hct MCV RDW Plt Count 110 L Price % (Auto) 11.0 H Price # 0.9 H Seg Neutrophils % 73.0 H Seg Neuts % (Manual) Lymphocytes % (Manual) Monocytes % (Manual) Nucleated RBC % Lymphocytes # (Manual) POC ABG pH ABG pH POC ABG pCO2 POC ABG pO2 ABG pO2 ABG Base Excess Sodium Potassium Chloride 108.2 H Carbon Dioxide BUN Creatinine Glucose 119 H POC Glucose 170 H Calcium 7.9 L Total Creatine Kinase Troponin T C-Reactive Protein Albumin 2.8 L HDL Cholesterol 01/24/17 01/24/17 01/25/17 17:45 23:29 12:54 RBC Hgb Hct MCV RDW Plt Count Price % (Auto) Price # Seg Neutrophils % Seg Neuts % (Manual) Lymphocytes % (Manual) Monocytes % (Manual) Nucleated RBC % Lymphocytes # (Manual) POC ABG pH ABG pH POC ABG pCO2 POC ABG pO2 ABG pO2 ABG Base Excess Sodium Potassium Chloride Carbon Dioxide BUN Creatinine Glucose POC Glucose 141 H 154 H 106 H Calcium Total Creatine Kinase Troponin T C-Reactive Protein Albumin HDL Cholesterol 01/26/17 01/26/17 10:32 10:32 RBC Hgb Hct MCV RDW 13.1 L Plt Count 129 L Price % (Auto) 14.7 H Price # 1.1 H Seg Neutrophils % Seg Neuts % (Manual) Lymphocytes % (Manual) Monocytes % (Manual) Nucleated RBC % Lymphocytes # (Manual) POC ABG pH ABG pH POC ABG pCO2 POC ABG pO2 ABG pO2 ABG Base Excess Sodium Potassium 3.3 L Chloride Carbon Dioxide BUN Creatinine Glucose POC Glucose Calcium 7.6 L Total Creatine Kinase Troponin T C-Reactive Protein Albumin HDL Cholesterol Allied health notes reviewed: RT
[2017-01-26] MEDS: ZOCOR PO SCH (22:48)
[2017-01-26] MEDS: LOVENOX SUB-Q SCH (22:48)
[2017-01-27] MEDS: KEPPRA 1,000 MG in NACL 0.9% 100 ML IV SCH (01:00)
[2017-01-27] MEDS: DUONEB *Not for PRN Use IH SCH ×4 (01:31→21:05)
[2017-01-27] MEDS: PILOCARPINE 1% OU SCH ×2 (08:00→14:30)
[2017-01-27] MEDS: DULCOLAX PR SCH (11:00)
[2017-01-27] MEDS: PROTONIX PO SCH (11:00)
[2017-01-27] MEDS: PLAVIX PO SCH (11:00)
--- NOTE | 2017-01-27 14:25 | Progress Note ---
Assessment and Plan Assessment and plan: Patient admitted on 01/19/2017, my first day with patient 01/25/17 Patient is a 86-year-old man who lives at home with history of hypertension, type 2 diabetes mellitus, coronary artery disease status post CABG, glaucoma, COPD, dyslipidemia and bioprosthetic aVR who presented with altered mental status/strokelike symptoms; he was found to have seizure activity requiring intubation in the emergency department upon admission on 01/19/2017 and self extubated on 01/22/2017. Pt pulled out ngt 01/25/17 also. No stroke per MRI brain. -Acute encephalopathy: Treat underlying condition,restraints renewed. -Acute hypoxic respiratory failure: Continue oxygen via nasal cannula, nebs -Status epilepticus, present on admission: Seizure medication/keppra -No NSTEMI -Abdominal distension, stil npo, unlikely gastric outlet obstruction d/w Gen. Surgeon, Dr. Mayfield: start clears, pt had BM -ARF due to ATN, poa, resolved -SIRS poa -Malignant hypertension, poa, resolved -DVT prophylaxis: sq lovenox 01/26/17: D/W Daughter July. Patient has 3 kids: 2 sons and daughter, July (youngest). pt is . No power of estate attorney. 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 Mental status baseline is that Patient walks to bathroom w/ walker, dress himself, feeds himself. He does get confused with his surrounding because he is blind. He has a good routine at home with the caregiver, Mr. Wagoner, who is employed by the [employer] 01/27/17: AMS resolving, remove restaints, feed him, remove escobedo, and stop telemetry. If he tolerates a diet/oral keppra then discharge in am History Interval history: Patient was seen and examined. Follow-up on current diagnosis/which has improved. Overnight uneventful. Patient denies any chest pain, shortness breath, nausea/vomiting or severe headaches. Imaging, nursing note, chart, labs and old chart reviewed. Discussed with patient. Hospitalist Physical - Physical exam Narrative exam: GEN: WDWN, NAD, AWAKE, ALERT, ORIENTATED x 2, missed location HEENT: NCAT, EOMI, PERRL, OP Clear NECK: supple, no adenopathy, no thyromegaly, no JVD CVS/HEART: RRR, NORMAL S1S2, NO JVD, pulses present bilaterally CHEST/LUNGS: CTA B, Symmetrical chest expansion, good air entry bilaterally GI/Abdomen: soft, NTND, good bowel sounds, no guarding or rebound /Bladder: no suprapubic tenderness, no CVA or paraspinal tenderness EXT/Skin: no c/c/e, no significant edema or obvious rash MSK: FROM x 4 Neuro: CN 2-12 grossly intact, doesn't follow all commands Psych: calm but confused - Constitutional Vitals: Temp Pulse Resp BP Pulse Ox 98.8 F 86 20 147/66 97 01/27/17 07:55 01/27/17 07:55 01/27/17 07:55 01/27/17 07:55 01/27/17 07:55 General appearance: Present: no acute distress, obese. Absent: other Results - Labs CBC & Chem 7: 01/26/17 10:32 01/26/17 10:32 Labs: Laboratory Last Values WBC 7.1 K/mm3 (4.5-11.0) 01/26/17 10:32 RBC 4.45 M/mm3 (3.65-5.03) 01/26/17 10:32 Hgb 13.6 gm/dl (11.8-15.2) 01/26/17 10:32 Hct 41.8 % (35.5-45.6) 01/26/17 10:32 MCV 94 fl (84-94) 01/26/17 10:32 MCH 31 pg (28-32) 01/26/17 10:32 MCHC 33 % (32-34) 01/26/17 10:32 RDW 13.1 % (13.2-15.2) L 01/26/17 10:32 Plt Count 129 K/mm3 (140-440) L 01/26/17 10:32 Lymph % (Auto) 23.8 % (13.4-35.0) 01/26/17 10:32 [place] % (Auto) 14.7 % (0.0-7.3) H 01/26/17 10:32 Eos % (Auto) 2.7 % (0.0-4.3) 01/26/17 10:32 Baso % (Auto) 0.6 % (0.0-1.8) 01/26/17 10:32 Lymph # 1.7 K/mm3 (1.2-5.4) 01/26/17 10:32 [place] # 1.1 K/mm3 (0.0-0.8) H 01/26/17 10:32 Eos # 0.2 K/mm3 (0.0-0.4) 01/26/17 10:32 Baso # 0.0 K/mm3 (0.0-0.1) 01/26/17 10:32 Add Manual Diff Complete 01/23/17 15:07 Total Counted 100 01/23/17 15:07 Seg Neutrophils % 58.2 % (40.0-70.0) 01/26/17 10:32 Seg Neuts % (Manual) 80.0 % (40.0-70.0) H 01/23/17 15:07 Band Neutrophils % 3.0 % 01/23/17 15:07 Lymphocytes % (Manual) 8.0 % (13.4-35.0) L 01/23/17 15:07 Reactive Lymphs % (Man) 0 % 01/23/17 15:07 Monocytes % (Manual) 9.0 % (0.0-7.3) H 01/23/17 15:07 Eosinophils % (Manual) 0 % (0.0-4.3) 01/23/17 15:07 Basophils % (Manual) 0 % (0.0-1.8) 01/23/17 15:07 Metamyelocytes % 0 % 01/23/17 15:07 Myelocytes % 0 % 01/23/17 15:07 Promyelocytes % 0 % 01/23/17 15:07 Blast Cells % 0 % 01/23/17 15:07 Nucleated RBC % 1.0 % (0.0-0.9) H 01/23/17 15:07 Seg Neutrophils # 4.2 K/mm3 (1.8-7.7) 01/26/17 10:32 Seg Neutrophils # Man 7.3 K/mm3 (1.8-7.7) 01/23/17 15:07 Band Neutrophils # 0.3 K/mm3 01/23/17 15:07 Lymphocytes # (Manual) 0.7 K/mm3 (1.2-5.4) L 01/23/17 15:07 Abs React Lymphs (Man) 0.0 K/mm3 01/23/17 15:07 Monocytes # (Manual) 0.8 K/mm3 (0.0-0.8) 01/23/17 15:07 Eosinophils # (Manual) 0.0 K/mm3 (0.0-0.4) 01/23/17 15:07 Basophils # (Manual) 0.0 K/mm3 (0.0-0.1) 01/23/17 15:07 Metamyelocytes # 0.0 K/mm3 01/23/17 15:07 Myelocytes # 0.0 K/mm3 01/23/17 15:07 Promyelocytes # 0.0 K/mm3 01/23/17 15:07 Blast Cells # 0.0 K/mm3 01/23/17 15:07 WBC Morphology Not Reportable 01/23/17 15:07 Hypersegmented Neuts Not Reportable 01/23/17 15:07 Hyposegmented Neuts Not Reportable 01/23/17 15:07 Hypogranular Neuts Not Reportable 01/23/17 15:07 Smudge Cells Not Reportable 01/23/17 15:07 Toxic Granulation Not Reportable 01/23/17 15:07 Toxic Vacuolation Not Reportable 01/23/17 15:07 Dohle Bodies Not Reportable 01/23/17 15:07 Pelger-Huet Anomaly Not Reportable 01/23/17 15:07 Marii Rods Not Reportable 01/23/17 15:07 Platelet Estimate Consistent w auto 01/23/17 15:07 Clumped Platelets Not Reportable 01/23/17 15:07 Plt Clumps, EDTA Not Reportable 01/23/17 15:07 Large Platelets Not Reportable 01/23/17 15:07 Giant Platelets Not Reportable 01/23/17 15:07 Platelet Satelliting Not Reportable 01/23/17 15:07 Plt Morphology Comment Not Reportable 01/23/17 15:07 RBC Morphology Not Reportable 01/23/17 15:07 Dimorphic RBCs Not Reportable 01/23/17 15:07 Polychromasia Not Reportable 01/23/17 15:07 Hypochromasia Not Reportable 01/23/17 15:07 Poikilocytosis Not Reportable 01/23/17 15:07 Anisocytosis Not Reportable 01/23/17 15:07 Microcytosis Not Reportable 01/23/17 15:07 Macrocytosis Not Reportable 01/23/17 15:07 Spherocytes Not Reportable 01/23/17 15:07 Pappenheimer Bodies Not Reportable 01/23/17 15:07 Sickle Cells Not Reportable 01/23/17 15:07 Target Cells Not Reportable 01/23/17 15:07 Tear Drop Cells Not Reportable 01/23/17 15:07 Ovalocytes Few 01/23/17 15:07 Helmet Cells Not Reportable 01/23/17 15:07 [place] Bodies Not Reportable 01/23/17 15:07 [place] Rings Not Reportable 01/23/17 15:07 [place] Cells Not Reportable 01/23/17 15:07 Bite Cells Not Reportable 01/23/17 15:07 Crenated Cell Not Reportable 01/23/17 15:07 Elliptocytes Not Reportable 01/23/17 15:07 Acanthocytes (Spur) Not Reportable 01/23/17 15:07 Rouleaux Not Reportable 01/23/17 15:07 Hemoglobin C Crystals Not Reportable 01/23/17 15:07 Schistocytes Not Reportable 01/23/17 15:07 Malaria parasites Not Reportable 01/23/17 15:07 [place]rell Bodies Not Reportable 01/23/17 15:07 Hem Pathologist Commnt No 01/23/17 15:07 PT 13.4 Sec. (12.2-14.9) 01/18/17 23:10 INR 0.97 (0.87-1.13) 01/18/17 23:10 APTT 27.4 Sec. (24.2-36.6) 01/18/17 23:10 Thrombin Time 17.5 Sec. (15.1-19.6) 01/18/17 23:10 POC ABG pH 7.286 (7.35-7.45) L 01/23/17 09:22 ABG pH 7.317 pH Units (7.350-7.450) L 01/23/17 15:56 POC ABG pCO2 42.2 (35-45) 01/23/17 09:22 ABG pCO2 45.5 mm Hg 01/23/17 15:56 POC ABG pO2 89 (80-105) 01/23/17 09:22 ABG pO2 115.3 mm Hg (80.0-90.0) H 01/23/17 15:56 POC ABG HCO3 20.1 01/23/17 09:22 ABG HCO3 22.8 mmol/L (20.0-26.0) 01/23/17 15:56 POC ABG Total CO2 21 01/23/17 09:22 POC ABG O2 Sat 96 01/23/17 09:22 ABG O2 Saturation 97.9 % (95.0-99.0) 01/23/17 15:56 ABG O2 Content 19.7 (0.0-44) 01/23/17 15:56 POC ABG Base Excess -7 01/23/17 09:22 ABG Base Excess -3.5 mmol/L (-2.0-3.0) L 01/23/17 15:56 ABG Hemoglobin 14.5 gm/dl (14.0-18.0) 01/23/17 15:56 ABG Carboxyhemoglobin 1.2 % (0.0-5.0) 01/23/17 15:56 ABG Methemoglobin 0.6 % (0.0-1.5) 01/23/17 15:56 Oxyhemoglobin 96.2 % (95.0-99.0) 01/23/17 15:56 FiO2 35 % 01/23/17 15:56 Sodium 142 mmol/L (137-145) 01/26/17 10:32 Potassium 3.3 mmol/L (3.6-5.0) L 01/26/17 10:32 Chloride 103.0 mmol/L (98-107) 01/26/17 10:32 Carbon Dioxide 27 mmol/L (22-30) 01/26/17 10:32 Anion Gap 15 mmol/L 01/26/17 10:32 BUN 14 mg/dL (9-20) 01/26/17 10:32 Creatinine 0.9 mg/dL (0.8-1.5) 01/26/17 10:32 Estimated GFR > 60 ml/min 01/26/17 10:32 BUN/Creatinine Ratio 16 % 01/26/17 10:32 Glucose 97 mg/dL (75-100) 01/26/17 10:32 POC Glucose 163 (70-105) H 01/27/17 12:41 Lactic Acid 0.80 mmol/L (0.7-2.0) 01/23/17 16:12 Calcium 7.6 mg/dL (8.4-10.2) L 01/26/17 10:32 Total Bilirubin 0.30 mg/dL (0.1-1.2) 01/24/17 05:45 AST 21 units/L (5-40) 01/24/17 05:45 ALT 12 units/L (7-56) 01/24/17 05:45 Alkaline Phosphatase 37 units/L (35-129) 01/24/17 05:45 Total Creatine Kinase 257 units/L (55-170) H 01/20/17 14:59 CK-MB (CK-2) 1.6 ng/mL (0.0-4.0) 01/20/17 14:59 CK-MB (CK-2) Rel Index 0.6 (0-4) 01/20/17 14:59 Troponin T 0.013 ng/mL (0.00-0.029) 01/20/17 14:59 C-Reactive Protein 7.20 mg/dL (0.00-1.30) H 01/23/17 16:12 Total Protein 6.3 g/dL (6.3-8.2) 01/24/17 05:45 Albumin 2.8 g/dL (3.9-5) L 01/24/17 05:45 Albumin/Globulin Ratio 0.8 % 01/24/17 05:45 Triglycerides 60 mg/dL (2-149) 01/19/17 05:46 Cholesterol 144 mg/dL (50-199) 01/19/17 05:46 LDL Cholesterol Direct 68 mg/dL (50-130) 01/19/17 05:46 HDL Cholesterol 64 mg/dL (40-59) H 01/19/17 05:46 Cholesterol/HDL Ratio 2.25 % 01/19/17 05:46 Urine Color Straw (Yellow) 01/19/17 04:39 Urine Turbidity Clear (Clear) 01/19/17 04:39 Urine pH 7.0 (5.0-7.0) 01/19/17 04:39 Ur Specific [place] 1.009 (1.003-1.030) 01/19/17 04:39 Urine Protein >500 mg/dL (Negative) 01/19/17 04:39 Urine Glucose (UA) 50 mg/dL (Negative) 01/19/17 04:39 Urine Ketones Neg mg/dL (Negative) 01/19/17 04:39 Urine Blood Sm (Negative) 01/19/17 04:39 Urine Nitrite Neg (Negative) 01/19/17 04:39 Urine Bilirubin Neg (Negative) 01/19/17 04:39 Urine Urobilinogen < 2.0 mg/dL (<2.0) 01/19/17 04:39 Ur Leukocyte Esterase Neg (Negative) 01/19/17 04:39 Urine WBC (Auto) 1.0 /HPF (0.0-6.0) 01/19/17 04:39 Urine RBC (Auto) 7.0 /HPF (0.0-6.0) 01/19/17 04:39 Urine Mucus Few /HPF 01/19/17 04:39 Urine Opiates Screen Presumptive negative 01/19/17 04:39 Urine Methadone Screen Presumptive negative 01/19/17 04:39 Ur Barbiturates Screen Presumptive negative 01/19/17 04:39 Ur Phencyclidine Scrn Presumptive negative 01/19/17 04:39 Ur Amphetamines Screen Presumptive negative 01/19/17 04:39 U Benzodiazepines Scrn Presumptive negative 01/19/17 04:39 Urine Cocaine Screen Presumptive negative 01/19/17 04:39 U Marijuana (THC) Screen Presumptive negative 01/19/17 04:39 Drugs of Abuse Note Disclamer 01/19/17 04:39 Plasma/Serum Alcohol < 0.01 gm% (0-0.07) 01/18/17 23:10 Blood Type B POSITIVE 01/18/17 23:10 Antibody Screen Negative 01/18/17 23:10
[2017-01-27] MEDS ORDERED: D5 IV SCH (16:00)
[2017-01-27] MEDS ORDERED: KCL IV SCH (16:00)
[2017-01-27] MEDS ORDERED: [UNRECOGNIZED DRUG - OTHER] IV SCH (16:00)
--- NOTE | 2017-01-27 17:39 | Progress Note ---
Assessment and Plan Patient awake. Talking little bit. Not fully oriented.No acute respiratory distress. On 2 litres O2.O2 saturation 96%. - Patient Problems (1) Acute respiratory failure with hypoxia Current Visit: Yes Status: Acute Plan to address problem: Patient extubated and is on nasal canula 2 litres. O2 saturation 96%. Albuterol/atrovent aerosol treatments q 6 hours. DVT and GI Prophylaxis. (2) Acute renal failure (ARF) Current Visit: Yes Status: Acute Qualifiers: Acute renal failure type: A Plan to address problem: Management as per nephrology. (3) Altered mental status Current Visit: Yes Status: Acute Qualifiers: Altered mental status type: transient alteration of awareness Coma depth: C Coma timing: C Qualified Code(s): R40.4 - Transient alteration of awareness Plan to address problem: Management as per primary care and neurology. (4) Seizure-like activity Current Visit: Yes Status: Acute Plan to address problem: Management as per primary care and neurology. Subjective Date of service: 01/27/17 Principal diagnosis: Complex seizures, Acute Resp Failure on MVS; Acute Encephalopathy Interval history: Patient awake. Talking little bit. Not fully oriented.No acute respiratory distress. On 2 litres O2.O2 saturation 96%. Objective Vital Signs - 12hr 01/27/17 01/27/17 01/27/17 07:10 07:23 07:24 Temperature Pulse Rate 83 Pulse Rate [ 92 H Anterior Bilateral Throughout] Respiratory Rate Respiratory 16 Rate [Anterior Bilateral Throughout] Blood Pressure [Left] O2 Sat by Pulse 96 Oximetry 01/27/17 01/27/17 07:35 07:55 Temperature 98.8 F Pulse Rate 86 Pulse Rate [ 95 H Anterior Bilateral Throughout] Respiratory 20 Rate Respiratory 16 Rate [Anterior Bilateral Throughout] Blood Pressure 147/66 [Left] O2 Sat by Pulse 97 Oximetry Constitutional: no acute distress, alert, other (Talking little bit but not fully oriented.) Eyes: non-icteric, other (PERRL, EOMI) ENT: oropharynx moist Neck: supple, no lymphadenopathy, no JVD, other (no thyromegaly) Effort: mildly labored Ascultation: Bilateral: diminished breath sounds, rales, other (referred upper airway sounds) Percussion: Bilateral: not dull Cardiovascular: regular rate and rhythm (S1,S2, systolic murmur), other (No rubs or murmurs) Gastrointestinal: normoactive bowel sounds, non-tender, non-distended (obese), other (no HSM) Integumentary: other (stasis dermatitis bilaterally) Extremities: no cyanosis, no edema, pulses normal, no ischemia or petechiae Neurologic: non-focal exam, pupils equal and round, motor strength normal and, unable to assess, other (improved insight) Psychiatric: other (unable to asses . Patient sleepy and not oriented.) CBC and BMP: 01/26/17 10:32 01/26/17 10:32 ABG, PT/INR, D-dimer: ABG POC ABG pH 7.286 (7.35-7.45) L 01/23/17 09:22 ABG pH 7.317 pH Units (7.350-7.450) L 01/23/17 15:56 POC ABG pCO2 42.2 (35-45) 01/23/17 09:22 ABG pCO2 45.5 mm Hg 01/23/17 15:56 POC ABG pO2 89 (80-105) 01/23/17 09:22 ABG pO2 115.3 mm Hg (80.0-90.0) H 01/23/17 15:56 POC ABG HCO3 20.1 01/23/17 09:22 POC ABG Total CO2 21 01/23/17 09:22 POC ABG O2 Sat 96 01/23/17 09:22 ABG O2 Saturation 97.9 % (95.0-99.0) 01/23/17 15:56 PT/INR, D-dimer PT 13.4 Sec. (12.2-14.9) 01/18/17 23:10 INR 0.97 (0.87-1.13) 01/18/17 23:10 Abnormal lab findings: Abnormal Labs 01/19/17 01/19/17 01/19/17 03:45 05:46 07:49 RBC Hgb Hct MCV RDW Plt Count [place] % (Auto) [place] # Seg Neutrophils % Seg Neuts % (Manual) Lymphocytes % (Manual) Monocytes % (Manual) Nucleated RBC % Lymphocytes # (Manual) POC ABG pH 7.295 L ABG pH POC ABG pCO2 46.4 H POC ABG pO2 231 H ABG pO2 ABG Base Excess Sodium Potassium Chloride Carbon Dioxide BUN Creatinine Glucose POC Glucose 113 H Calcium Total Creatine Kinase Troponin T 0.046 H D C-Reactive Protein Albumin HDL Cholesterol 64 H 01/19/17 01/20/17 01/20/17 23:39 03:47 03:47 RBC 5.11 H Hgb 16.1 H Hct 48.6 H MCV 95 H RDW Plt Count 110 L [place] % (Auto) 14.6 H [place] # 1.3 H Seg Neutrophils % Seg Neuts % (Manual) Lymphocytes % (Manual) Monocytes % (Manual) Nucleated RBC % Lymphocytes # (Manual) POC ABG pH ABG pH POC ABG pCO2 POC ABG pO2 ABG pO2 ABG Base Excess Sodium 136 L Potassium Chloride Carbon Dioxide 20 L BUN Creatinine 2.0 H D Glucose POC Glucose 122 H Calcium 8.1 L Total Creatine Kinase Troponin T C-Reactive Protein Albumin HDL Cholesterol 01/20/17 01/20/17 01/20/17 05:18 14:59 22:09 RBC Hgb Hct MCV RDW Plt Count [place] % (Auto) [place] # Seg Neutrophils % Seg Neuts % (Manual) Lymphocytes % (Manual) Monocytes % (Manual) Nucleated RBC % Lymphocytes # (Manual) POC ABG pH ABG pH POC ABG pCO2 30.4 L POC ABG pO2 ABG pO2 ABG Base Excess Sodium Potassium Chloride Carbon Dioxide BUN Creatinine Glucose POC Glucose 144 H Calcium Total Creatine Kinase 257 H Troponin T C-Reactive Protein Albumin HDL Cholesterol 01/21/17 01/21/17 01/21/17 05:54 14:01 14:01 RBC Hgb Hct MCV 95 H RDW Plt Count 106 L [place] % (Auto) [place] # Seg Neutrophils % Seg Neuts % (Manual) Lymphocytes % (Manual) Monocytes % (Manual) Nucleated RBC % Lymphocytes # (Manual) POC ABG pH ABG pH POC ABG pCO2 29.0 L POC ABG pO2 74 L ABG pO2 ABG Base Excess Sodium Potassium Chloride Carbon Dioxide 18 L BUN 22 H Creatinine Glucose POC Glucose Calcium 7.5 L Total Creatine Kinase Troponin T C-Reactive Protein Albumin HDL Cholesterol 01/22/17 01/22/17 01/22/17 08:47 09:24 09:24 RBC Hgb Hct MCV 95 H RDW Plt Count 102 L [place] % (Auto) [place] # Seg Neutrophils % Seg Neuts % (Manual) Lymphocytes % (Manual) Monocytes % (Manual) Nucleated RBC % Lymphocytes # (Manual) POC ABG pH ABG pH POC ABG pCO2 POC ABG pO2 ABG pO2 ABG Base Excess Sodium Potassium Chloride 109.5 H Carbon Dioxide 20 L BUN Creatinine Glucose 120 H POC Glucose 112 H Calcium 7.8 L Total Creatine Kinase Troponin T C-Reactive Protein Albumin HDL Cholesterol 01/22/17 01/23/17 01/23/17 17:34 09:22 12:22 RBC Hgb Hct MCV RDW Plt Count [place] % (Auto) [place] # Seg Neutrophils % Seg Neuts % (Manual) Lymphocytes % (Manual) Monocytes % (Manual) Nucleated RBC % Lymphocytes # (Manual) POC ABG pH 7.286 L ABG pH POC ABG pCO2 POC ABG pO2 ABG pO2 ABG Base Excess Sodium Potassium Chloride Carbon Dioxide BUN Creatinine Glucose POC Glucose 110 H 127 H Calcium Total Creatine Kinase Troponin T C-Reactive Protein Albumin HDL Cholesterol 01/23/17 01/23/17 01/23/17 15:07 15:07 15:56 RBC 5.98 H Hgb 18.4 H D Hct 56.0 H D MCV RDW 13.1 L Plt Count 79 L [place] % (Auto) [place] # Seg Neutrophils % Seg Neuts % (Manual) 80.0 H Lymphocytes % (Manual) 8.0 L Monocytes % (Manual) 9.0 H Nucleated RBC % 1.0 H Lymphocytes # (Manual) 0.7 L POC ABG pH ABG pH 7.317 L POC ABG pCO2 POC ABG pO2 ABG pO2 115.3 H ABG Base Excess -3.5 L Sodium Potassium 5.7 H D Chloride 109.7 H Carbon Dioxide 19 L BUN Creatinine Glucose 106 H POC Glucose Calcium 7.5 L Total Creatine Kinase Troponin T C-Reactive Protein Albumin HDL Cholesterol 01/23/17 01/23/17 01/24/17 16:12 23:46 05:37 RBC Hgb Hct MCV RDW Plt Count [place] % (Auto) [place] # Seg Neutrophils % Seg Neuts % (Manual) Lymphocytes % (Manual) Monocytes % (Manual) Nucleated RBC % Lymphocytes # (Manual) POC ABG pH ABG pH POC ABG pCO2 POC ABG pO2 ABG pO2 ABG Base Excess Sodium Potassium Chloride Carbon Dioxide BUN Creatinine Glucose POC Glucose 109 H 118 H Calcium Total Creatine Kinase Troponin T C-Reactive Protein 7.20 H Albumin HDL Cholesterol 01/24/17 01/24/17 01/24/17 05:45 05:45 11:49 RBC Hgb Hct MCV RDW Plt Count 110 L [place] % (Auto) 11.0 H [place] # 0.9 H Seg Neutrophils % 73.0 H Seg Neuts % (Manual) Lymphocytes % (Manual) Monocytes % (Manual) Nucleated RBC % Lymphocytes # (Manual) POC ABG pH ABG pH POC ABG pCO2 POC ABG pO2 ABG pO2 ABG Base Excess Sodium Potassium Chloride 108.2 H Carbon Dioxide BUN Creatinine Glucose 119 H POC Glucose 170 H Calcium 7.9 L Total Creatine Kinase Troponin T C-Reactive Protein Albumin 2.8 L HDL Cholesterol 01/24/17 01/24/17 01/25/17 17:45 23:29 12:54 RBC Hgb Hct MCV RDW Plt Count [place] % (Auto) [place] # Seg Neutrophils % Seg Neuts % (Manual) Lymphocytes % (Manual) Monocytes % (Manual) Nucleated RBC % Lymphocytes # (Manual) POC ABG pH ABG pH POC ABG pCO2 POC ABG pO2 ABG pO2 ABG Base Excess Sodium Potassium Chloride Carbon Dioxide BUN Creatinine Glucose POC Glucose 141 H 154 H 106 H Calcium Total Creatine Kinase Troponin T C-Reactive Protein Albumin HDL Cholesterol 01/26/17 01/26/17 01/27/17 10:32 10:32 00:35 RBC Hgb Hct MCV RDW 13.1 L Plt Count 129 L [place] % (Auto) 14.7 H [place] # 1.1 H Seg Neutrophils % Seg Neuts % (Manual) Lymphocytes % (Manual) Monocytes % (Manual) Nucleated RBC % Lymphocytes # (Manual) POC ABG pH ABG pH POC ABG pCO2 POC ABG pO2 ABG pO2 ABG Base Excess Sodium Potassium 3.3 L Chloride Carbon Dioxide BUN Creatinine Glucose POC Glucose 128 H Calcium 7.6 L Total Creatine Kinase Troponin T C-Reactive Protein Albumin HDL Cholesterol 01/27/17 12:41 RBC Hgb Hct MCV RDW Plt Count [place] % (Auto) [place] # Seg Neutrophils % Seg Neuts % (Manual) Lymphocytes % (Manual) Monocytes % (Manual) Nucleated RBC % Lymphocytes # (Manual) POC ABG pH ABG pH POC ABG pCO2 POC ABG pO2 ABG pO2 ABG Base Excess Sodium Potassium Chloride Carbon Dioxide BUN Creatinine Glucose POC Glucose 163 H Calcium Total Creatine Kinase Troponin T C-Reactive Protein Albumin HDL Cholesterol Allied health notes reviewed: RT
[2017-01-27] MEDS: XALATAN 0.005% OU SCH (18:04)
[2017-01-27] MEDS: LOVENOX SUB-Q SCH (23:34)
[2017-01-27] MEDS: ZOCOR PO SCH (23:35)
[2017-01-27] MEDS: KEPPRA PO SCH (23:35)
[2017-01-28] MEDS: DUONEB *Not for PRN Use IH SCH ×3 (01:57→13:48)
[2017-01-28 09:56] LABS: Hematocrit 37.3 % (35.5-45.6); Hemoglobin 12.4 gm/dl (11.8-15.2); Mean Corpuscular HGB Conc 33 % (32-34); Mean Corpuscular Hemoglobin 31 pg (28-32); Mean Corpuscular Volume 94 fl (84-94); Platelet Count 128 K/mm3 (140-440); Red Blood Count 3.98 M/mm3 (3.65-5.03); Red Cell Distribution Width 12.7 % (13.2-15.2)
[2017-01-28 10:13] LABS: Anion Gap 14 mmol/L; BUN/Creatinine Ratio 10; Blood Urea Nitrogen 9 mg/dL (9-20); Calcium 7.9 mg/dL (8.4-10.2); Carbon Dioxide 26 mmol/L (22-30); Chloride 102.4 mmol/L (98-107); Glucose 93 mg/dL (75-100); Potassium 3.1 mmol/L (3.6-5.0); Sodium 139 mmol/L (137-145)
[2017-01-28] MEDS: PLAVIX PO SCH (10:36)
[2017-01-28] MEDS: KEPPRA PO SCH (10:36)
[2017-01-28] MEDS: PROTONIX PO SCH (10:36)
[2017-01-28] MEDS: DULCOLAX PR SCH (10:37)
[2017-01-28 11:34] LABS: ABG Base Excess 3.7 mmol/L (-2.0-3.0); ABG HCO3 27.7 mmol/L (20.0-26.0); ABG Oxygen Saturation 94.7 % (95.0-99.0); ABG PCO2 39.4 mm Hg; ABG PH 7.464 pH Units (7.350-7.450); ABG PO2 62.1 mm Hg (80.0-90.0)
[2017-01-28] MEDS ORDERED: K-DUR PO ONE (11:41)
--- NOTE | 2017-01-28 11:51 | Discharge Summary ---
Providers - Providers Date of Admission: 01/19/17 02:27 Date of discharge: 01/28/17 Attending physician: MARSHA MEZA 01/23/17 17:15 Consult to Dietitian/Nutrition [CONS] Routine Physician Instructions: Assess nutrtn needs, initiate, modify, manage TF Reason For Exam: Reason for Consult: Write/Manage Tube Feeding Reason for Consult: Write/Manage Tube Feeding 01/23/17 23:28 Consult to Physician [CONS] Routine Consulting Provider: ALVERTO JEFFRIES Reason For Exam: seizure/encephalopathy Place consult to:: aviation program manager neurology Notified:: OFFICE Phone number called:: [phone] Was contact made?: Yes Time called:: 09:28 01/24/17 16:35 Speech Therapy Evaluation and Treat [CONS] Routine Reason For Exam: aspiration 01/25/17 16:00 Consult to Physician [CONS] Routine Consulting Provider: NY ZHONG Reason For Exam: bowel obstruction Place consult to:: aviation program manager general surgeon Notified:: yes Was contact made?: Yes If yes, spoke with:: Dr Zhong Time called:: 16:18 01/25/17 16:38 Speech Therapy Evaluation and Treat [CONS] Routine Reason For Exam: placement 01/26/17 09:04 Midline [Consult to PICC Line RN] [CONS] Urgent Reason For Exam: no iv access Type Line:: Midline 01/26/17 15:52 Physical Therapy Evaluation and Treat [CONS] Routine Comment: Reason For Exam: weakness 01/27/17 07:52 Physical Therapy Evaluation and Treat [CONS] Routine Comment: Reason For Exam: skill level 01/27/17 07:53 Occupational Therapy Evaluate and Treat [CONS] Routine Comment: Reason For Exam: skill level Primary care physician: PARTS LISTER Hospitalization Condition: Stable Hospital course: Patient admitted on 01/19/2017, my first day with patient 01/25/17 Patient is a 86-year-old man who lives at home with history of hypertension, type 2 diabetes mellitus, coronary artery disease status post CABG, glaucoma, COPD, dyslipidemia and bioprosthetic aVR who presented with altered mental status/strokelike symptoms; he was found to have seizure activity requiring intubation in the emergency department upon admission on 01/19/2017 and self extubated on 01/22/2017. Pt pulled out ngt 10/9/17 also. No stroke per MRI brain. -Acute encephalopathy: Treat underlying condition,restraints renewed. -Acute hypoxic respiratory failure: Continue oxygen via nasal cannula, nebs -Status epilepticus, present on admission: Seizure medication/keppra -No NSTEMI -Abdominal distension, stil npo, unlikely gastric outlet obstruction d/w Gen. Surgeon, Dr. Zhong: start clears, pt had BM -ARF due to ATN, poa, resolved -SIRS poa -Malignant hypertension, poa, resolved -DVT prophylaxis: sq lovenox 01/26/17: D/W Daughter July. Patient has 3 kids: 2 sons and daughter, July (youngest). pt is . No power of workers compensation attorney. 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 Mental status baseline is that Patient walks to bathroom w/ walker, dress himself, feeds himself. He does get confused with his surrounding because he is blind. He has a good routine at home with the caregiver, Mr. Wagoner, who is employed by the [employer] 01/27/17: AMS resolving, remove restaints, feed him, remove escobedo, and stop telemetry. If he tolerates a diet/oral keppra then discharge in am 01/28/17: Tolerating food. Physical Therapy recommends subacute rehab x 14 days but daughter declines. I called July, she states "If i want to kill him i will send him to a facility because he is not gonna cooperate....my experience at [facility] has been really bad." Patient will be [facility] Disposition: [id number] HOME [facility] Time spent for discharge: 36 minutes Core Measure Documentation - Palliative Care Palliative Care/ Comfort Measures: Not Applicable - Core Measures Any of the following diagnoses?: none - VTE Discharge Requirements Deep Vein Thrombosis/Pulmonary Embolism Present on Admission: No Has pt received <5 days of overlap therapy or INR<2.0: No Anticoagulant overlap therapy prescribed at discharge: No Contraindication No Overlap Therapy order at DC: Not Indicated Exam - Physical Exam Narrative exam: GEN: WDWN, NAD, AWAKE, ALERT, ORIENTATED x 2, missed location HEENT: NCAT, EOMI, PERRL, OP Clear NECK: supple, no adenopathy, no thyromegaly, no JVD CVS/HEART: RRR, NORMAL S1S2, NO JVD, pulses present bilaterally CHEST/LUNGS: CTA B, Symmetrical chest expansion, good air entry bilaterally GI/Abdomen: soft, NTND, good bowel sounds, no guarding or rebound /Bladder: no suprapubic tenderness, no CVA or paraspinal tenderness EXT/Skin: no c/c/e, no significant edema or obvious rash MSK: FROM x 4 Neuro: CN 2-12 grossly intact, doesn't follow all commands Psych: calm but confused - Constitutional Vitals: Temp Pulse Resp BP Pulse Ox 99.5 F 83 20 124/58 96 01/28/17 07:51 01/28/17 07:51 01/28/17 07:51 01/28/17 07:51 01/28/17 07:51 Plan Activity: up only with assistance, fall precautions, other (no strenous activity until cleared by pcp) Diet: low salt, diabetic Special Instructions: record daily BP diary, record blood sugar diary Follow up with: PRIMARY CARE, [Primary Care Provider] - 3-5 Days NY ZHONG DO [Staff Physician] - 7 Days ALVERTO JEFFRIES MD [Staff Physician] - 7 Days Prescriptions: RX: Ipratropium/Albuterol Sulfate [DUONEB *Not for PRN Use*] 1 ampul IH Q6HRT PRN #30 day PRN Reason: Shortness Of Breath RX: levETIRAcetam [Keppra TAB] 1,000 mg PO BID #30 day RX: oxyCODONE /ACETAMINOPHEN [Percocet 5/325 mg] 1 tab PO Q4H PRN #15 tablet PRN Reason: Pain , Severe (7-10) RX: Pantoprazole [Protonix TAB] 40 mg PO QDAY #7 day
--- NOTE | 2017-01-28 11:55 | Progress Note ---
Subjective Date of service: 01/28/17 Principal diagnosis: Complex seizures, Acute Resp Failure on MVS; Acute Encephalopathy Interval history: Patient is seen today for: Seen and examined at bedside; 24hour events reviewed; nursing and respiratory care staff consulted; no adverse overnight events reported to me; Objective Vital Signs - 12hr 01/28/17 01/28/17 01/28/17 07:38 07:39 07:47 Temperature Pulse Rate Pulse Rate [ 78 Anterior Bilateral Throughout] Respiratory Rate Respiratory 18 Rate [Anterior Bilateral Throughout] Blood Pressure 124/69 O2 Sat by Pulse 98 Oximetry 01/28/17 07:51 Temperature 99.5 F Pulse Rate 83 Pulse Rate [ Anterior Bilateral Throughout] Respiratory 20 Rate Respiratory Rate [Anterior Bilateral Throughout] Blood Pressure 124/58 O2 Sat by Pulse 96 Oximetry Constitutional: no acute distress, alert, other (Talking little bit but not fully oriented.) Eyes: non-icteric, other (PERRL, EOMI) ENT: oropharynx moist Neck: supple, no lymphadenopathy, no JVD, other (no thyromegaly) Effort: mildly labored Ascultation: Bilateral: clear (anteriorly), diminished breath sounds, rales, other (referred upper airway sounds) Percussion: Bilateral: not dull Cardiovascular: regular rate and rhythm (S1,S2, systolic murmur), other (No rubs or murmurs) Gastrointestinal: normoactive bowel sounds, non-tender, non-distended (obese), other (no HSM) Integumentary: other (stasis dermatitis bilaterally) Extremities: no cyanosis, no edema, pulses normal, no ischemia or petechiae Neurologic: non-focal exam, pupils equal and round, motor strength normal and, unable to assess, other (improved insight) Psychiatric: other (unable to asses . Patient sleepy and not oriented.) CBC and BMP: 01/28/17 08:54 01/28/17 08:54 ABG, PT/INR, D-dimer: ABG POC ABG pH 7.286 (7.35-7.45) L 01/23/17 09:22 ABG pH 7.464 pH Units (7.350-7.450) H 01/28/17 Unknown POC ABG pCO2 42.2 (35-45) 01/23/17 09:22 ABG pCO2 39.4 mm Hg 01/28/17 Unknown POC ABG pO2 89 (80-105) 01/23/17 09:22 ABG pO2 62.1 mm Hg (80.0-90.0) L 01/28/17 Unknown POC ABG HCO3 20.1 01/23/17 09:22 POC ABG Total CO2 21 01/23/17 09:22 POC ABG O2 Sat 96 01/23/17 09:22 ABG O2 Saturation 94.7 % (95.0-99.0) L 01/28/17 Unknown PT/INR, D-dimer PT 13.4 Sec. (12.2-14.9) 01/18/17 23:10 INR 0.97 (0.87-1.13) 01/18/17 23:10 Abnormal lab findings: Abnormal Labs 01/19/17 01/19/17 01/19/17 03:45 05:46 07:49 RBC Hgb Hct MCV RDW Plt Count Y[place]y % (Auto) [place]y # Seg Neutrophils % Seg Neuts % (Manual) Lymphocytes % (Manual) Monocytes % (Manual) Nucleated RBC % Lymphocytes # (Manual) POC ABG pH 7.295 L ABG pH POC ABG pCO2 46.4 H POC ABG pO2 231 H ABG pO2 ABG HCO3 ABG O2 Saturation ABG Base Excess ABG Hemoglobin Oxyhemoglobin Sodium Potassium Chloride Carbon Dioxide BUN Creatinine Glucose POC Glucose 113 H Calcium Total Creatine Kinase Troponin T 0.046 H D C-Reactive Protein Albumin HDL Cholesterol 64 H 01/19/17 01/20/17 01/20/17 23:39 03:47 03:47 RBC 5.11 H Hgb 16.1 H Hct 48.6 H MCV 95 H RDW Plt Count 110 L [place] % (Auto) 14.6 H [place]y # 1.3 H Seg Neutrophils % Seg Neuts % (Manual) Lymphocytes % (Manual) Monocytes % (Manual) Nucleated RBC % Lymphocytes # (Manual) POC ABG pH ABG pH POC ABG pCO2 POC ABG pO2 ABG pO2 ABG HCO3 ABG O2 Saturation ABG Base Excess ABG Hemoglobin Oxyhemoglobin Sodium 136 L Potassium Chloride Carbon Dioxide 20 L BUN Creatinine 2.0 H D Glucose POC Glucose 122 H Calcium 8.1 L Total Creatine Kinase Troponin T C-Reactive Protein Albumin HDL Cholesterol 01/20/17 01/20/17 01/20/17 05:18 14:59 22:09 RBC Hgb Hct MCV RDW Plt Count [place] % (Auto) [place] # Seg Neutrophils % Seg Neuts % (Manual) Lymphocytes % (Manual) Monocytes % (Manual) Nucleated RBC % Lymphocytes # (Manual) POC ABG pH ABG pH POC ABG pCO2 30.4 L POC ABG pO2 ABG pO2 ABG HCO3 ABG O2 Saturation ABG Base Excess ABG Hemoglobin Oxyhemoglobin Sodium Potassium Chloride Carbon Dioxide BUN Creatinine Glucose POC Glucose 144 H Calcium Total Creatine Kinase 257 H Troponin T C-Reactive Protein Albumin HDL Cholesterol 01/21/17 01/21/17 01/21/17 05:54 14:01 14:01 RBC Hgb Hct MCV 95 H RDW Plt Count 106 L [place] % (Auto) [place] # Seg Neutrophils % Seg Neuts % (Manual) Lymphocytes % (Manual) Monocytes % (Manual) Nucleated RBC % Lymphocytes # (Manual) POC ABG pH ABG pH POC ABG pCO2 29.0 L POC ABG pO2 74 L ABG pO2 ABG HCO3 ABG O2 Saturation ABG Base Excess ABG Hemoglobin Oxyhemoglobin Sodium Potassium Chloride Carbon Dioxide 18 L BUN 22 H Creatinine Glucose POC Glucose Calcium 7.5 L Total Creatine Kinase Troponin T C-Reactive Protein Albumin HDL Cholesterol 01/22/17 01/22/17 01/22/17 08:47 09:24 09:24 RBC Hgb Hct MCV 95 H RDW Plt Count 102 L [place] % (Auto) [place] # Seg Neutrophils % Seg Neuts % (Manual) Lymphocytes % (Manual) Monocytes % (Manual) Nucleated RBC % Lymphocytes # (Manual) POC ABG pH ABG pH POC ABG pCO2 POC ABG pO2 ABG pO2 ABG HCO3 ABG O2 Saturation ABG Base Excess ABG Hemoglobin Oxyhemoglobin Sodium Potassium Chloride 109.5 H Carbon Dioxide 20 L BUN Creatinine Glucose 120 H POC Glucose 112 H Calcium 7.8 L Total Creatine Kinase Troponin T C-Reactive Protein Albumin HDL Cholesterol 01/22/17 01/23/17 01/23/17 17:34 09:22 12:22 RBC Hgb Hct MCV RDW Plt Count [place] % (Auto) [place] # Seg Neutrophils % Seg Neuts % (Manual) Lymphocytes % (Manual) Monocytes % (Manual) Nucleated RBC % Lymphocytes # (Manual) POC ABG pH 7.286 L ABG pH POC ABG pCO2 POC ABG pO2 ABG pO2 ABG HCO3 ABG O2 Saturation ABG Base Excess ABG Hemoglobin Oxyhemoglobin Sodium Potassium Chloride Carbon Dioxide BUN Creatinine Glucose POC Glucose 110 H 127 H Calcium Total Creatine Kinase Troponin T C-Reactive Protein Albumin HDL Cholesterol 01/23/17 01/23/17 01/23/17 15:07 15:07 15:56 RBC 5.98 H Hgb 18.4 H D Hct 56.0 H D MCV RDW 13.1 L Plt Count 79 L [place] % (Auto) [place] # Seg Neutrophils % Seg Neuts % (Manual) 80.0 H Lymphocytes % (Manual) 8.0 L Monocytes % (Manual) 9.0 H Nucleated RBC % 1.0 H Lymphocytes # (Manual) 0.7 L POC ABG pH ABG pH 7.317 L POC ABG pCO2 POC ABG pO2 ABG pO2 115.3 H ABG HCO3 ABG O2 Saturation ABG Base Excess -3.5 L ABG Hemoglobin Oxyhemoglobin Sodium Potassium 5.7 H D Chloride 109.7 H Carbon Dioxide 19 L BUN Creatinine Glucose 106 H POC Glucose Calcium 7.5 L Total Creatine Kinase Troponin T C-Reactive Protein Albumin HDL Cholesterol 01/23/17 01/23/17 01/24/17 16:12 23:46 05:37 RBC Hgb Hct MCV RDW Plt Count [place] % (Auto) [place] # Seg Neutrophils % Seg Neuts % (Manual) Lymphocytes % (Manual) Monocytes % (Manual) Nucleated RBC % Lymphocytes # (Manual) POC ABG pH ABG pH POC ABG pCO2 POC ABG pO2 ABG pO2 ABG HCO3 ABG O2 Saturation ABG Base Excess ABG Hemoglobin Oxyhemoglobin Sodium Potassium Chloride Carbon Dioxide BUN Creatinine Glucose POC Glucose 109 H 118 H Calcium Total Creatine Kinase Troponin T C-Reactive Protein 7.20 H Albumin HDL Cholesterol 01/24/17 01/24/17 01/24/17 05:45 05:45 11:49 RBC Hgb Hct MCV RDW Plt Count 110 L [place] % (Auto) 11.0 H [place]y # 0.9 H Seg Neutrophils % 73.0 H Seg Neuts % (Manual) Lymphocytes % (Manual) Monocytes % (Manual) Nucleated RBC % Lymphocytes # (Manual) POC ABG pH ABG pH POC ABG pCO2 POC ABG pO2 ABG pO2 ABG HCO3 ABG O2 Saturation ABG Base Excess ABG Hemoglobin Oxyhemoglobin Sodium Potassium Chloride 108.2 H Carbon Dioxide BUN Creatinine Glucose 119 H POC Glucose 170 H Calcium 7.9 L Total Creatine Kinase Troponin T C-Reactive Protein Albumin 2.8 L HDL Cholesterol 01/24/17 01/24/17 01/25/17 17:45 23:29 12:54 RBC Hgb Hct MCV RDW Plt Count [place] % (Auto) [place] # Seg Neutrophils % Seg Neuts % (Manual) Lymphocytes % (Manual) Monocytes % (Manual) Nucleated RBC % Lymphocytes # (Manual) POC ABG pH ABG pH POC ABG pCO2 POC ABG pO2 ABG pO2 ABG HCO3 ABG O2 Saturation ABG Base Excess ABG Hemoglobin Oxyhemoglobin Sodium Potassium Chloride Carbon Dioxide BUN Creatinine Glucose POC Glucose 141 H 154 H 106 H Calcium Total Creatine Kinase Troponin T C-Reactive Protein Albumin HDL Cholesterol 01/26/17 01/26/17 01/27/17 10:32 10:32 00:35 RBC Hgb Hct MCV RDW 13.1 L Plt Count 129 L [place] % (Auto) 14.7 H [place] # 1.1 H Seg Neutrophils % Seg Neuts % (Manual) Lymphocytes % (Manual) Monocytes % (Manual) Nucleated RBC % Lymphocytes # (Manual) POC ABG pH ABG pH POC ABG pCO2 POC ABG pO2 ABG pO2 ABG HCO3 ABG O2 Saturation ABG Base Excess ABG Hemoglobin Oxyhemoglobin Sodium Potassium 3.3 L Chloride Carbon Dioxide BUN Creatinine Glucose POC Glucose 128 H Calcium 7.6 L Total Creatine Kinase Troponin T C-Reactive Protein Albumin HDL Cholesterol 01/27/17 01/27/17 01/28/17 12:41 18:12 08:54 RBC Hgb Hct MCV RDW 12.7 L Plt Count 128 L [place] % (Auto) [place] # Seg Neutrophils % Seg Neuts % (Manual) Lymphocytes % (Manual) Monocytes % (Manual) Nucleated RBC % Lymphocytes # (Manual) POC ABG pH ABG pH POC ABG pCO2 POC ABG pO2 ABG pO2 ABG HCO3 ABG O2 Saturation ABG Base Excess ABG Hemoglobin Oxyhemoglobin Sodium Potassium Chloride Carbon Dioxide BUN Creatinine Glucose POC Glucose 163 H 150 H Calcium Total Creatine Kinase Troponin T C-Reactive Protein Albumin HDL Cholesterol 01/28/17 01/28/17 01/28/17 08:54 11:46 Unknown RBC Hgb Hct MCV RDW Plt Count [place] % (Auto) [place] # Seg Neutrophils % Seg Neuts % (Manual) Lymphocytes % (Manual) Monocytes % (Manual) Nucleated RBC % Lymphocytes # (Manual) POC ABG pH ABG pH 7.464 H POC ABG pCO2 POC ABG pO2 ABG pO2 62.1 L ABG HCO3 27.7 H ABG O2 Saturation 94.7 L ABG Base Excess 3.7 H ABG Hemoglobin 11.8 L Oxyhemoglobin 92.9 L Sodium Potassium 3.1 L Chloride Carbon Dioxide BUN Creatinine Glucose POC Glucose 126 H Calcium 7.9 L Total Creatine Kinase Troponin T C-Reactive Protein Albumin HDL Cholesterol Allied health notes reviewed: RT
[2017-01-28 16:06] VITALS: BP 101/60
== END 2017-01-28 16:57 | disposition home health service (06) | DRG 208 ==
LOC: ED 23:02 → CC1 01-19 02:27 → 4A 01-23 14:32 → CC1 01-23 19:31 → 4A 01-24 18:54 → 3A 01-27 19:16
PROVIDERS: ADMIT Internal Medicine; ATTEND Internal Medicine
PROC: 5A1945Z Respiratory Ventilation, 24-96 Consecutive Hours (ICD-10-PCS; principal; 2017-01-19)
PROC: 0BH17EZ Insertion of Endotracheal Airway into Trachea, Via Natural or Artificial Opening (ICD-10-PCS; 2017-01-19)
PROC: 4A033R1 Measurement of Arterial Saturation, Peripheral, Percutaneous Approach (ICD-10-PCS; 2017-01-23)
PROC: 5A09557 Assistance with Respiratory Ventilation, Greater than 96 Consecutive Hours, Continuous Positive Airway Pressure (ICD-10-PCS; 2017-01-23)
DX: J96.01 Acute respiratory failure with hypoxia (principal); N17.0 Acute kidney failure with tubular necrosis; G93.41 Metabolic encephalopathy; R65.10 Systemic inflammatory response syndrome (SIRS) of non-infectious origin without acute organ dysfunction; G40.901 Epilepsy, unspecified, not intractable, with status epilepticus; I10 Essential (primary) hypertension; E11.9 Type 2 diabetes mellitus without complications; I25.10 Atherosclerotic heart disease of native coronary artery without angina pectoris; H40.9 Unspecified glaucoma; E66.01 Morbid (severe) obesity due to excess calories; Z82.49 Family history of ischemic heart disease and other diseases of the circulatory system; Z95.1 Presence of aortocoronary bypass graft; Z79.899 Other long term (current) drug therapy; Z95.2 Presence of prosthetic heart valve; Z68.35 Body mass index [BMI] 35.0-35.9, adult
CPT/HCPCS: 36415; 36600; 70450; 70551; 71010; 74000; 74022; 80048; 80053; 80061; 80307; 80320; 81001; 82140; 82550; 82553; 82803; 82962; 84484; 85007; 85025; 85027; 85610; 85670; 85730; 86140; 86850; 86900; 86901; 87040; 87070; 87205; 93005; 93010; 93306; 93880; 94002; 94003; 94640; 94660; 94760; 95819; 99291; C9113; G0480; G8978-GP; G8979-GP; G8987-GO; G8989-GO; G8996-GN; G8997-GN; G8998-GN; J0360; J1650; J1815; J1953; J1956; J2060; J2250; J2405; J2765; J2997; J3010; J3480; J7030